=== PATIENT | female | born 1965 | race Two or more races ===

== ENCOUNTER 2020-07-22 10:15 | Outpatient (REF) | payer MEDICAID, SELFPAY ==
[2020-07-22 10:57] LABS: MANUAL DIFF FLAG NO
[2020-07-22 11:03] LABS: Basophils Absolute Auto 0.1 X10*3/uL (0.0-0.2); Basophils Percent Auto 1.1 % (0-2); Eosinophils Absolute Auto 1.3 X10*3/uL (0.0-0.4); Eosinophils Percent Auto 18.7 % (0-4); Hematocrit 40.5 % (37-47); Hemoglobin 13.6 g/dl (12.0-16.0); Imm Gran Abs Auto 0.01 X10*3/uL (0.00-0.03); Imm Gran Pct Auto 0.1 % (0.0-0.4); Lymphocytes Absolute Auto 2.5 X10*3/uL (1.2-4.9); Mean Corpuscular HGB Conc 33.6 g/dl (31.0-35.0); Mean Corpuscular Hemoglobin 30.8 pg (27.0-33.0); Mean Corpuscular Volume 91.8 fL (80-98); Mean Platelet Volume 11.6 fL (9.4-12.3); Monocytes Absolute Auto 0.6 X10*3/uL (0.1-1.2); Monocytes Percent Auto 8.7 % (2-11); Neutrophils Absolute Auto 2.6 X10*3/uL (2.0-8.3); Neutrophils Percent Auto 36.4 % (45-73); Platelet Count 103 X10*3/uL (160-400); Red Blood Count 4.41 X10*6/uL (4.20-5.50); Red Cell Distribution Width 13.2 % (11.0-16.0)
[2020-07-22 11:38] LABS: Alanine Aminotransferase 127 U/L (0-31); Albumin Level 3.7 g/dL (3.5-5.0); Alkaline Phosphatase 165 U/L (39-117); Aspartate Amino Transferase 121 U/L (5-31); Bilirubin Total 0.7 mg/dL (0.0-1.0); Blood Urea Nitrogen 13 mg/dL (9-16); Calcium 8.9 mg/dL (8.4-10.2); Estimated Glomerular Filt Rate 53; Glucose Random 161 mg/dL (60-115); Total Protein 7.5 g/dL (6.5-8.0)
[2020-07-22 11:46] LABS: Anion Gap 10 (12-20); Carbon Dioxide 27 mmol/L (22-29); Chloride 106 mmol/L (96-108); Potassium 4.1 mmol/L (3.3-5.1); Sodium 139 mmol/L (135-145)
[2020-07-23 13:16] LABS: Absolute CD3 Count 1519 cells/uL (840-3060); Absolute CD4 Count 1120 cells/uL (490-1740); Absolute CD8 Count 381 cells/uL (180-1170); Absolute Lymphocytes 2422 cells/uL (850-3900); CD4 CD8 Ratio 2.94 (0.86-5.00); Percent CD3 Cells 63 % (57-85); Percent CD4 Cells 46 % (30-61); Percent CD8 Cells 16 % (12-42)
[2020-07-24 15:21] LABS: HIV RNA PCR Qn Copies 235 copies/mL (NOT DETECTED); HIV RNA PCR Qn Log Copies 2.37 (NOT DETECTED)
== END 2020-07-22 10:16 | disposition home or self-care (01) ==
LOC: HO.LAB 10:15
PROVIDERS: PCP Student in an Organized Health Care Education/Training Program; Visit Provider Internal Medicine
DX: B20 Human immunodeficiency virus [HIV] disease (principal)
CPT/HCPCS: 36415; 80053; 85025; 86359; 86360; 87522; 87536

== ENCOUNTER → 2020-08-11 13:42 | Outpatient (BNVA) | payer MEDICAID, SELFPAY | PROVIDERS: PCP Student in an Organized Health Care Education/Training Program; Visit Provider Nurse Practitioner ==

== ENCOUNTER → 2020-09-07 15:23 | Outpatient (BNVA) | payer MEDICAID, SELFPAY | PROVIDERS: PCP Student in an Organized Health Care Education/Training Program; Visit Provider Nurse Practitioner | DX: R10.9 Unspecified abdominal pain (principal); K59.04 Chronic idiopathic constipation; K21.00 Gastro-esophageal reflux disease with esophagitis, without bleeding; B20 Human immunodeficiency virus [HIV] disease; B18.2 Chronic viral hepatitis C | CPT/HCPCS: 99212 ==

== ENCOUNTER 2020-10-04 10:57 | Outpatient (REF) | payer MEDICAID, SELFPAY ==
--- NOTE | ~2020-10-04 | MM_ITS ---
EXAMINATION: MM SCREENING DIGITAL BREAST TOMOSYNTHESIS, BILATERAL CLINICAL INFORMATION: Screening. Asymptomatic. The lifetime risk of breast cancer based on the Tyrer-Cuzick Model is 15%. COMPARISON: Mammography: 06/30/2019, 05/06/2018, 03/27/2016 TECHNIQUE: Digital breast tomosynthesis is performed in both the craniocaudal and mediolateral oblique views along with computer-aided detection (CAD). Synthesized 2D images are generated from the tomosynthesis. FINDINGS: There are scattered areas of fibroglandular density (ACR BI-RADS breast composition Category b). There are no significant masses, abnormal calcifications, or other abnormalities. There are some punctate densities overlying the skin right axilla on the MLO view suggesting deodorant artifact. The axilla and skin contours are otherwise unremarkable. MM/MM tomosynthesis screening BI IMPRESSION: No mammographic evidence of malignancy. ASSESSMENT: BI-RADS 2: Benign RECOMMENDATION: Routine annual mammography screening. This patient's information was entered into a reminder system with a target due date for their next mammogram.
== END 2020-10-04 10:58 | disposition home or self-care (01) ==
LOC: HO.MAMMO 10:57
PROVIDERS: PCP Student in an Organized Health Care Education/Training Program; Visit Provider Student in an Organized Health Care Education/Training Program
DX: Z12.31 Encounter for screening mammogram for malignant neoplasm of breast (principal)
CPT/HCPCS: 77063; 77067

== ENCOUNTER → 2020-10-26 10:22 | Outpatient (BNVA) | payer MEDICAID, SELFPAY | PROVIDERS: PCP Student in an Organized Health Care Education/Training Program; Visit Provider Nurse Practitioner ==

== ENCOUNTER 2020-11-30 07:26 | Day surgery (SDC) | payer MEDICAID, SELFPAY ==
--- NOTE | 2020-11-25 13:42 | HO.ANESPROP2 ---
Documented by User: Marissa Tovarney 11/25/20 13:47 HPI - Anesthesia Eval Consult details Narrative: 55yo F for Colonoscopy PMFSH Active Problems Active Problems: All Active Problems (Updated 10/26/20 @ 12:14 by ANRAV Lindsey) Family history of colon cancer (Acute) Abdominal pain (Acute) Chronic idiopathic constipation (Acute) HIV (human immunodeficiency virus infection) (Acute) Chronic hepatitis C (Acute) GERD with esophagitis (Acute) Past Medical History Medical History Chronic hepatitis C Chronic idiopathic constipation GERD with esophagitis HIV (human immunodeficiency virus infection) Family History Family History Father No problems noted. Mother No problems noted. Surgical History Surgical History History of esophagogastroduodenoscopy (EGD) Hx of appendectomy Hx of section Hx of cholecystectomy Hx of colonoscopy Social History Social History Alcohol intake: current Alcohol intake frequency: does not drink Patient Tobacco Use Status: Never used Tobacco Use of substances other than those prescribed or required for medical reasons: No Have you been hit, kicked, punched, or otherwise hurt by someone within the past year? If so, by whom?: No Are you DNR?: No Advance Directives: No Advance Directives Information Provided: Yes Meds Allergies Allergy/AdvReac Type Severity Reaction Status Date / Time ibuprofen [From Motrin] Allergy Intermediate RASH Verified 10/26/20 10:23 Sulfa (Sulfonamide Allergy Intermediate RASH Verified 10/26/20 10:23 Antibiotics) Motrin Allergy Unknown Rash Uncoded 08/11/20 13:43 Home Medications Medication Instructions Recorded Confirmed Last Taken Type albuterol sulfate 90 mcg/actuation 2 puff INHALATION Q4-6H PRN 08/11/20 09/07/20 Unknown History aerosol inhaler aspirin 81 mg tablet,delayed 81 mg PO DAILY 08/11/20 09/07/20 Unknown History release clonazepam 0.5 mg tablet 0.5 mg PO BEDTIME 08/11/20 09/07/20 Unknown History elviteg 150 mg-cob 150 mg-emtricit 1 tab PO DAILY 08/11/20 09/07/20 Unknown History 200 mg-tenofo alafenam 10 mg tablet lidocaine 5 % topical ointment 1 appl TOPICAL BID 08/11/20 09/07/20 Unknown History meclizine 25 mg tablet 25 mg PO TID 08/11/20 09/07/20 Unknown History zolpidem 10 mg tablet 10 mg PO BEDTIME PRN 08/11/20 09/07/20 Unknown History Exam Exam Date and Time: November 25, 2020 1342 Pertinent Lab Results Pertinent Lab Results: Laboratory Tests 07/22/20 07/22/20 10:30 10:30 WBC 7.0 Hgb 13.6 Hct 40.5 Plt Count 103 L Sodium 139 Potassium 4.1 Chloride 106 Carbon Dioxide 27 BUN 13 Creatinine 1.06 Assessment and Plan Assessment Anesthesia Assessment: Chart Reviewed Documented by User: Adrián Galicia MD 11/30/20 08:40 PMFSH Past Medical History Medical History Chronic hepatitis C Chronic idiopathic constipation GERD with esophagitis HIV (human immunodeficiency virus infection) Family History Family History Father No problems noted. Mother No problems noted. Surgical History Surgical History History of esophagogastroduodenoscopy (EGD) Hx of appendectomy Hx of section Hx of cholecystectomy Hx of colonoscopy Social History Social History Alcohol intake: current Alcohol intake frequency: does not drink Patient Tobacco Use Status: Never used Tobacco Use of substances other than those prescribed or required for medical reasons: No Have you been hit, kicked, punched, or otherwise hurt by someone within the past year? If so, by whom?: No Are you DNR?: No Advance Directives: No Advance Directives Information Provided: Yes Meds Allergies Allergy/AdvReac Type Severity Reaction Status Date / Time ibuprofen [From Motrin] Allergy Intermediate RASH Verified 10/26/20 10:23 Sulfa (Sulfonamide Allergy Intermediate RASH Verified 10/26/20 10:23 Antibiotics) Motrin Allergy Unknown Rash Uncoded 08/11/20 13:43 Home Medications Medication Instructions Recorded Confirmed Last Taken Type albuterol sulfate 90 mcg/actuation 2 puff INHALATION Q4-6H PRN 08/11/20 09/07/20 Unknown History aerosol inhaler aspirin 81 mg tablet,delayed 81 mg PO DAILY 08/11/20 09/07/20 Unknown History release clonazepam 0.5 mg tablet 0.5 mg PO BEDTIME 08/11/20 09/07/20 Unknown History elviteg 150 mg-cob 150 mg-emtricit 1 tab PO DAILY 08/11/20 09/07/20 Unknown History 200 mg-tenofo alafenam 10 mg tablet lidocaine 5 % topical ointment 1 appl TOPICAL BID 08/11/20 09/07/20 Unknown History meclizine 25 mg tablet 25 mg PO TID 08/11/20 09/07/20 Unknown History zolpidem 10 mg tablet 10 mg PO BEDTIME PRN 08/11/20 09/07/20 Unknown History Exam Airway Mallampati Class: III TM Dist: >3cm Neck ROM: Full Loose/Missing/Broken Teeth: Yes Assessment and Plan Assessment Anesthesia Assessment: Anesthesia Plan Discussed and Chart Reviewed Final Anesthetic Review NPO: Yes ASA Class: III Final Preanesthetic Review: No Changes in Pt Med Stat, Meds/Allgs Chart Reviewed, Consent Obtained/Reviewed and Anes Risks/Benef Reviewed Patient Risk: Low Procedure Risk: Low Anesthetic Plan Anesthetic Plan: MAC: Disposition: Standard PACU
[2020-11-30 07:54] VITALS: BP 129/69; PULSE 65; RESP 18; TEMP 36.8; O2SAT 97
[2020-11-30 08:02] VITALS: BMI 27.4
[2020-11-30] MEDS: Lactated Ringers 1,000 ML 100 ML IVCONT (08:16)
--- NOTE | 2020-11-30 09:14 | W.PM.OPN ---
Operative Note Operative Note Date of Service: 11/30/20 Narrative: Pre-op diagnosis: Colon cancer screening. Family history of colon cancer and polyps. Her sister had CRC at age 45 y/o and she survived. She also has a second sister with colon polyps removed. Post-op diagnosis: other (Colon polyps, diverticulosis) Procedure: COLONOSCOPY TILL CECUM WITH SNARE POLYPECTOMY Consent: Indications for the procedure and potential complications of bleeding, perforation, reaction to medications and missed diagnosis were discussed with the patient and informed consent was obtained. Instrument: Olympus PCF H 190 L variable stiffness pediatric colonoscope Monitoring: Vital signs and clinical assessment, intermittent blood pressure monitoring, continuous EKG monitoring, Pulse oximetry and Carbon Dioxide monitoring were done throughout the procedure. Colon withdrawl time was 20 minutes. Procedure: The patient was placed in the left lateral decubitis position and pre-procedure medications were administered. After a digital rectal examination of the ano-rectum, the video colonoscope was inserted into the rectum and advanced through the colon to the cecum. The colonoscope was slowly withdrawn in a retrograde panoramic fashion and the colon mucosa was carefully examined including a retroflexed view of the rectum. Findings and interventions are described below. Procedure Difficulty: Without difficulty Findings: Terminal Ileum: Not evaluated Cecum: A 2 cms sessile polyp removed with a hot snare. A 7-8 mm sessile polyp removed with a cold snare - some bleeding noted at polypectomy site treated with cautery using the snare tip. Ascending Colon: Normal Transverse Colon: A 10-12 mm sessile polyp removed with a hot snare Descending Colon: Normal Sigmoid Colon: Moderate diverticulosis Rectum: Normal Ano-rectum: Normal Colon preparation: Good after copious irrigation Impression and Post Procedure Diagnosis: Colonoscopy Findings: Three polyps removed Moderate diverticulosis seen in the sigmoid colon Plan: Await pathology results Patient has an appointment on 12/23/20 in the [facility] with Cristina Shen NP . Repeat Colonoscopy interval based on path results - in 2- 3 years if polyps are adenomatous and 5 years due to positive family history. Above findings were reviewed with the patient and colon polyps and diverticulosis handouts were given in the discharge area Surgeon: Eliza Malhotra MD Anesthesia: MAC Was an Salesperson Men'S Hats used for this Procedure?: Yes Salesperson Men'S Hats: Mirna Bright Estimated blood loss (mL): 0 Pathology: other (A- CECAL POLYPS B- TRANSVERSE COLON POLYP) Condition: stable Disposition: PACU
--- NOTE | 2020-11-30 09:14 | MHC.SHP ---
Pre-Procedural Eval Section A Date of Service: 11/30/20 The patient is an INPATIENT: No The History & Physical has been completed within 30 days and I have reviewed it.: No Section B Chief Complaint: Family hx of Colon Cancer Details of Present Illness: colon cancer screening Relevant Family History (Specify if Yes): Yes Relevant Social History: None Present Medications: see Short Stay Collaborative assessment Medical History: Significant History ( chronic hepatitis-C, HIV) History of Previous Operations: Relevant previous surgery/procedure and date(s) (History of esophagogastroduodenoscopy (EGD) Hx of appendectomy Hx of section Hx of cholecystectomy Hx of colonoscopy) Allergies: Allergies Allergy/AdvReac Type Severity Reaction Status Date / Time ibuprofen [From Motrin] Allergy Intermediate RASH Verified 10/26/20 10:23 Sulfa (Sulfonamide Allergy Intermediate RASH Verified 10/26/20 10:23 Antibiotics) Motrin Allergy Unknown Rash Uncoded 08/11/20 13:43 Review of Systems Sugical H&P ROS: Negative: Constitution, Cardiovascular, Respiratory and Gastrointestinal Exam Surgical H&P Exam: Normal: Heart, Normal: Lungs, Normal: Extremities and Normal: Abdomen Plan Diagnosis/Plan: Unchanged I have reviewed the history and physical and performed a pertinent physical examination on my patient. No changes have occurred unless specified.
[2020-11-30 10:01] VITALS: BP 90/54; PULSE 71; RESP 16; TEMP 36.1; O2SAT 94
[2020-11-30 10:15] VITALS: BP 100/60; PULSE 60; RESP 16; O2SAT 95
== END 2020-11-30 11:14 | disposition home or self-care (01) ==
PROVIDERS: Visit Provider Internal Medicine Gastroenterology
PROC: 0DJD8ZZ Inspection of Lower Intestinal Tract, Via Natural or Artificial Opening Endoscopic (ICD-10-PCS; CPT 45378; principal; 2020-11-30 09:20)
DX: Z12.11 Encounter for screening for malignant neoplasm of colon (principal); Z80.0 Family history of malignant neoplasm of digestive organs; Z83.71 Family history of colonic polyps; D12.3 Benign neoplasm of transverse colon; K51.40 Inflammatory polyps of colon without complications; K57.30 Diverticulosis of large intestine without perforation or abscess without bleeding; K59.04 Chronic idiopathic constipation; K21.00 Gastro-esophageal reflux disease with esophagitis, without bleeding; B18.2 Chronic viral hepatitis C; B20 Human immunodeficiency virus [HIV] disease; Z90.49 Acquired absence of other specified parts of digestive tract; Z79.899 Other long term (current) drug therapy; Z88.2 Allergy status to sulfonamides; Z88.8 Allergy status to other drugs, medicaments and biological substances
CPT/HCPCS: 45385; 88305; 88312; 88313

== ENCOUNTER → 2020-12-23 09:23 | Outpatient (BNVA) | payer MEDICAID, SELFPAY | PROVIDERS: PCP Student in an Organized Health Care Education/Training Program; Visit Provider Nurse Practitioner ==

== ENCOUNTER 2021-01-07 09:27 | Outpatient (REF) | payer MEDICAID, SELFPAY ==
[2021-01-07 10:28] LABS: MANUAL DIFF FLAG NO
[2021-01-07 10:34] LABS: Basophils Absolute Auto 0.1 X10*3/uL (0.0-0.2); Basophils Percent Auto 1.1 % (0-2); Hematocrit 40.2 % (37-47); Hemoglobin 13.7 g/dl (12.0-16.0); Imm Gran Abs Auto 0.01 X10*3/uL (0.00-0.03); Imm Gran Pct Auto 0.2 % (0.0-0.4); Lymphocytes Absolute Auto 2.4 X10*3/uL (1.2-4.9); Lymphocytes Percent Auto 38.3 % (20-40); Mean Corpuscular HGB Conc 34.1 g/dl (31.0-35.0); Mean Corpuscular Hemoglobin 31.4 pg (27.0-33.0); Mean Corpuscular Volume 92.2 fL (80-98); Mean Platelet Volume 11.9 fL (9.4-12.3); Monocytes Absolute Auto 0.5 X10*3/uL (0.1-1.2); Monocytes Percent Auto 8.2 % (2-11); Neutrophils Absolute Auto 2.2 X10*3/uL (2.0-8.3); Neutrophils Percent Auto 35.2 % (45-73); Platelet Count 91 X10*3/uL (160-400); Red Blood Count 4.36 X10*6/uL (4.20-5.50); White Blood Count 6.1 X10*3/uL (4.8-10.8)
[2021-01-07 10:51] LABS: Alanine Aminotransferase 125 U/L (0-31); Albumin Level 3.5 g/dL (3.5-5.0); Alkaline Phosphatase 166 U/L (39-117); Anion Gap 9 (12-20); Aspartate Amino Transferase 121 U/L (5-31); Blood Urea Nitrogen 10 mg/dL (9-16); Calcium 9.1 mg/dL (8.4-10.2); Carbon Dioxide 25 mmol/L (22-29); Chloride 109 mmol/L (96-108); Estimated Glomerular Filt Rate > 60; Glucose Random 129 mg/dL (60-115); Potassium 3.9 mmol/L (3.3-5.1); Sodium 139 mmol/L (135-145); Total Protein 7.4 g/dL (6.5-8.0)
[2021-01-08 15:42] LABS: HCV Log PCR 6.32 Log IU/mL (NOT DETECTED); HepC Viral Load 2080000 IU/mL (NOT DETECTED)
[2021-01-09 12:57] LABS: HIV RNA PCR Qn Copies 53 copies/mL (NOT DETECTED); HIV RNA PCR Qn Log Copies 1.72 (NOT DETECTED)
[2021-01-10 15:21] LABS: Absolute CD3 Count 1495 cells/uL (840-3060); Absolute CD4 Count 1092 cells/uL (490-1740); Absolute CD8 Count 384 cells/uL (180-1170); Absolute Lymphocytes 2427 cells/uL (850-3900); CD4 CD8 Ratio 2.84 (0.86-5.00); Percent CD3 Cells 62 % (57-85); Percent CD4 Cells 45 % (30-61); Percent CD8 Cells 16 % (12-42)
== END 2021-01-07 09:28 | disposition home or self-care (01) ==
LOC: HO.LAB 09:27
PROVIDERS: Absent Provider Student in an Organized Health Care Education/Training Program; PCP Student in an Organized Health Care Education/Training Program; Visit Provider Internal Medicine
DX: B20 Human immunodeficiency virus [HIV] disease (principal)
CPT/HCPCS: 36415; 80053; 85025; 86359; 86360; 87522; 87536

== ENCOUNTER 2021-08-15 11:37 | Outpatient (REF) | payer OTHER, MEDICAID, SELFPAY ==
--- NOTE | ~2021-08-15 | XR_ITS ---
EXAMINATION: XR SHOULDER, RIGHT CLINICAL INFORMATION: Pain COMPARISON: None TECHNIQUE: AP external rotation, Grashey, scapular Y, and axillary views of the right shoulder. FINDINGS: Bone alignment is normal. No fracture or dislocation is seen. The joint spaces are normal. There may be a small undersurface acromial osteophyte. Soft tissues are otherwise normal. XR/XR shoulder RT min 2V IMPRESSION: Small undersurface acromial osteophyte otherwise unremarkable exam.
--- NOTE | ~2021-08-15 | XR_ITS ---
EXAMINATION: XR CERVICAL SPINE CLINICAL INFORMATION: Pain COMPARISON: None TECHNIQUE: 6 views of the cervical spine, inclusive of bilateral oblique views, were obtained. FINDINGS: Bone alignment is normal. No fracture or dislocation is seen. There is degenerative spondylosis and degenerative disc disease at C5-C6. There may be mild degenerative spondylosis at C2-C3 as well. Neural foramen are patent. There is soft tissue calcification in the posterior neck posterior to the C5 spinous process likely related to old trauma. Prevertebral soft tissues are normal. XR/XR cervical spine min 6V IMPRESSION: Mild degenerative spondylosis and degenerative disc disease at C5-C6.
== END 2021-08-15 11:38 | disposition home or self-care (01) ==
LOC: HO.XRAY 11:37
PROVIDERS: Absent Provider Student in an Organized Health Care Education/Training Program; PCP Student in an Organized Health Care Education/Training Program; Visit Provider Pediatrics
DX: M25.511 Pain in right shoulder (principal); M54.2 Cervicalgia
CPT/HCPCS: 72052; 73030

== ENCOUNTER 2021-11-10 12:20 | Outpatient (REF) | payer MEDICAID, SELFPAY ==
[2021-11-10 12:55] LABS: MANUAL DIFF FLAG NO
[2021-11-10 13:43] LABS: Basophils Absolute Auto 0.1 X10*3/uL (0.0-0.2); Basophils Percent Auto 1.5 % (0-2); Eosinophils Absolute Auto 0.7 X10*3/uL (0.0-0.4); Eosinophils Percent Auto 13.1 % (0-4); Hematocrit 41.3 % (37.0-47.0); Hemoglobin 14.1 g/dl (12.0-16.0); Imm Gran Abs Auto 0.01 X10*3/uL (0.00-0.03); Imm Gran Pct Auto 0.2 % (0.0-0.4); Lymphocytes Absolute Auto 1.9 X10*3/uL (1.2-4.9); Lymphocytes Percent Auto 37.2 % (20-40); Mean Corpuscular HGB Conc 34.1 g/dl (31.0-35.0); Mean Corpuscular Hemoglobin 32.1 pg (27.0-33.0); Mean Corpuscular Volume 94.1 fL (80.0-98.0); Mean Platelet Volume 12.1 fL (9.4-12.3); Monocytes Absolute Auto 0.4 X10*3/uL (0.1-1.2); Monocytes Percent Auto 8.5 % (2-11); Neutrophils Absolute Auto 2.1 x10*3/uL (2.0-8.3); Neutrophils Percent Auto 39.5 % (45-73); Platelet Count 73 X10*3/uL (160-400); Red Blood Count 4.39 X10*6/uL (4.20-5.50); Red Cell Distribution Width 13.4 % (11.0-16.0); White Blood Count 5.2 X10*3/uL (4.8-10.8)
[2021-11-10 14:00] LABS: Alanine Aminotransferase 85 U/L (0-31); Albumin Level 3.4 g/dL (3.5-5.0); Alkaline Phosphatase 238 U/L (39-117); Anion Gap 10 (12-20); Aspartate Amino Transferase 104 U/L (5-31); Bilirubin Total 2.3 mg/dL (0.0-1.0); Blood Urea Nitrogen 10 mg/dL (9-16); Calcium 9.2 mg/dL (8.4-10.2); Carbon Dioxide 25 mmol/L (22-29); Chloride 108 mmol/L (96-108); Cholesterol 192 mg/dL; Estimated Glomerular Filt Rate 49; Glucose Random 130 mg/dL (60-115); HDL Cholesterol 38 mg/dL; LDL Cholesterol Calculated 95 mg/dl; Potassium 4.3 mmol/L (3.3-5.1); Sodium 139 mmol/L (135-145); Total Protein 7.6 g/dL (6.5-8.0); Triglycerides 297 mg/dL
[2021-11-11 07:29] LABS: Syphilis Screen Nonreactive (Nonreactive)
[2021-11-12 17:51] LABS: TS Negative Control Passed; TS Panel A 0; TS Panel B 0; TS Positive Control Passed; TSpotTB Negative (Negative)
[2021-11-14 13:37] LABS: Absolute CD3 Count 1244 cells/uL (840-3060); Absolute CD4 Count 933 cells/uL (490-1740); Absolute CD8 Count 334 cells/uL (180-1170); Absolute Lymphocytes 2079 cells/uL (850-3900); CD4 CD8 Ratio 2.79 (0.86-5.00); Percent CD3 Cells 60 % (57-85); Percent CD4 Cells 45 % (30-61); Percent CD8 Cells 16 % (12-42)
[2021-11-15 13:21] LABS: HIV RNA PCR Qn Copies NOT DETECTED copies/mL (NOT DETECTED); HIV RNA PCR Qn Log Copies NOT DETECTED (NOT DETECTED)
== END 2021-11-10 12:21 | disposition home or self-care (01) ==
LOC: HO.LAB 12:20
PROVIDERS: PCP Student in an Organized Health Care Education/Training Program; Visit Provider Internal Medicine
DX: B20 Human immunodeficiency virus [HIV] disease (principal); K21.00 Gastro-esophageal reflux disease with esophagitis, without bleeding; K59.04 Chronic idiopathic constipation
CPT/HCPCS: 36415; 80053; 80061; 85025; 86359; 86360; 86481; 86780; 87536; 99212

== ENCOUNTER → 2022-07-19 12:41 | Outpatient (BNVA) | payer MEDICAID, SELFPAY | PROVIDERS: PCP Student in an Organized Health Care Education/Training Program; Visit Provider Nurse Practitioner | DX: B18.2 Chronic viral hepatitis C (principal); K59.04 Chronic idiopathic constipation; K21.00 Gastro-esophageal reflux disease with esophagitis, without bleeding; B20 Human immunodeficiency virus [HIV] disease; Z90.49 Acquired absence of other specified parts of digestive tract | CPT/HCPCS: 99212 ==

== ENCOUNTER 2023-01-23 10:34 | Outpatient (REF) | payer MEDICAID, SELFPAY ==
[2023-01-23 16:09] LABS: Alanine Aminotransferase 43 U/L (0-31); Albumin Level 3.3 g/dL (3.5-5.0); Alkaline Phosphatase 178 U/L (39-117); Anion Gap 10 (12-20); Aspartate Amino Transferase 52 U/L (5-31); Bilirubin Direct 0.9 mg/dL (0.0-0.5); Bilirubin Total 2.4 mg/dL (0.0-1.0); Blood Urea Nitrogen 12 mg/dL (9-16); Calcium 9.9 mg/dL (8.4-10.2); Carbon Dioxide 28 mmol/L (22-29); Chloride 107 mmol/L (96-108); Cholesterol 187 mg/dL (<200); Estimated Glomerular Filt Rate 51; Glucose Fasting 73 mg/dL (60-99); HDL Cholesterol 60 mg/dL (>40); LDL Cholesterol Calculated 95 mg/dL (<100); Potassium 3.9 mmol/L (3.3-5.1); Sodium 141 mmol/L (135-145); Total Protein 7.6 g/dL (6.5-8.0); Triglycerides 164 mg/dL (<150)
[2023-01-23 16:23] LABS: Thyroid Stimulating Hormone 1.43 uIU/mL (0.32-4.0)
[2023-01-24 15:59] LABS: HCV Log PCR 5.58 Log IU/mL (NOT DETECTED); HepC Viral Load 381000 IU/mL (NOT DETECTED)
[2023-01-25 00:53] LABS: Lyme Abs Screen <0.90 index
[2023-01-26 15:53] LABS: HIV RNA PCR Qn Copies <20 Copies/mL; HIV RNA PCR Qn Log Copies <1.30 Log cps/mL
== END 2023-01-23 10:35 | disposition home or self-care (01) ==
LOC: HO.CHCLDS 10:34
PROVIDERS: Visit Provider Student in an Organized Health Care Education/Training Program
DX: Z13.89 Encounter for screening for other disorder (principal)
CPT/HCPCS: 36415; 80053; 80061; 80076; 82248; 84443; 86617; 86618; 87522; 87536; 87900

== ENCOUNTER 2023-01-24 11:27 | Outpatient (AMB) | payer MEDICAID, SELFPAY ==
--- NOTE | 2023-01-24 11:33 | A.OFFVIS_ITS ---
Intake Vital Signs 01/24/23 11:34 Height 5 ft 2 in Weight 155 lb 3.287 oz BMI 28.4 BP 146/73 H Blood Pressure Location Lt brachial Position Sitting Pulse 69 Intake Visit Reasons: Follow up 6 months Intake Note: Jamey presents in office today for 6 months follow up. CC: Patient reports doing well and denies any new GI problems or concerns today. 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 Accompanied by: Self / Same As Patient Allergies ibuprofen [From Motrin] Allergy (Intermediate, Verified 01/24/23 11:49) RASH Sulfa (Sulfonamide Antibiotics) Allergy (Intermediate, Verified 01/24/23 11:49) RASH Motrin Allergy (Unknown, Uncoded 08/11/20 13:43) Rash HPI Follow up 6 months HPI Details Assessment & Plan (1) GERD with esophagitis: ?Comment: 2019 EGD showed small sliding HH, foresh ortened esophagus, alot of pharyngeal tissue ?Code(s): K21.00 - Gastro-esophageal reflux disease with esophagitis, without bleeding ?Plan: [place] Yariel Gautam She continues to do well on her Dexilant with good control of her GERD and her bisacodyl controlled constipation.? She remains satisfied with her GI regimen and has no new medical problems to report at this time.? Return office visit in 6 months. (2) Chronic idiopathic constipation: ?Code(s): K59.04 - Chronic idiopathic constipation (3) Chronic hepatitis C: ?Code(s): B18.2 - Chronic viral hepatitis C ? ? ? Medications: New bisacodyl (Dulcola x (bisacodyl)) 10 mg (2 x 5 mg) P O BEDTIME 30 days 60 tabs 6RF ? ? Refilled dexlansoprazole (D exilant) 60 mg? PO DAILY 30 caps 6RF ? ? TODAY'S VISIT [place] She is doing well! She continues to do well on her Dexilant with good control of her GERD and her bisacodyl controlled constipation.? She remains satisfied with her GI regimen and has no new medical problems to report at this time.? Next appt discuss repeat scope. ROV 6 mos. PFS Medical History Chronic hepatitis C Chronic idiopathic constipation GERD with esophagitis HIV (human immunodeficiency virus infection) Surgical History History of esophagogastroduodenoscopy (EGD) Hx of appendectomy Hx of section Hx of cholecystectomy Hx of colonoscopy Family History Father No problems noted. Mother No problems noted. Social History Alcohol intake: current Alcohol intake frequency: does not drink Patient Tobacco Use Status: Never used Tobacco Review of Systems Const Denies fatigue, Denies fever(s), Denies night sweats, Denies poor appetite and Denies weight loss Eyes Details: glasses Reports requires corrective lenses ENT Reports Normal hearing present, Denies dental pain, Denies dysphagia, Denies hearing loss, Denies mouth pain, Denies odynophagia, Denies throat swelling, Denies tongue swelling and Reports other (Dentition adequate) Card Reports no additional complaints Resp Reports no additional complaints GI Denies abdominal pain, Denies melena, Denies bloating, Denies hematochezia, Reports constipation, Denies GI cramping, Denies dysphagia, Denies excessive flatus, Denies early satiety, Reports heartburn, Denies diarrhea, Denies nausea, Denies odynophagia, Denies vomiting and Denies hematemesis Skin/Breast Denies pruritus, Denies lesions, Denies rash and Denies jaundice Neuro Reports Normal hearing present and Denies Abnormal speech present Endo Denies fatigue Aller/Immun Denies throat swelling and Denies tongue swelling Physical Exam Vital Signs: Last Vital Signs Pulse 69 01/24/23 11:34 BP 146/73 H 01/24/23 11:34 BMI result Body Mass Index 28.4 Const General: cooperative, no acute distress, well developed and well groomed Nutritional Appearance: average body habitus and well nourished Orientation/consciousness: oriented to person, oriented to place and oriented to time Limitations: language barrier HEENT Head: Yes normocephalic and Yes atraumatic Eyes General: appearance normal, both eyes and all related structures Pupils: Equal, round and reactive pupils present Neck Neck: Yes normal visual inspection and Yes no lymphadenopathy Thyroid: Thyroid normal Resp Effort & Inspection: normal respiratory effort and able to speak in complete sentences Auscultation: clear to auscultation bilaterally Cardio Rate: regular rate Rhythm: regular rhythm Heart sounds: Normal, physiologic split S2 sound present Peripheral pulses: radial pulses present and posterior tibial pulses present GI Inspection: No distended and No Abdominal panniculus present Palpation (GI): Soft to palpation, nontender, no guarding, not rigid and No hepatosplenomegaly present Percussion: Yes normal to percussion Auscultation: normal bowel sounds Rectal Exam - Female: deferred Skin General skin exam: no rashes or lesions noted, turgor normal, skin not dry, no jaundice, No spider nevi and no striae Rashes: no rashes Nails: normal Neuro General: oriented to person, oriented to place and oriented to time Cranial nerves: Yes Equal, round and reactive pupils present and Yes Normal hearing present Speech: No Abnormal speech present Extrem General: Yes normal to inspection, No clubbing, No cyanosis and No edema Psych Appearance: grossly normal and well kempt Mental Status: mental status grossly normal Speech and movement: Normal speech and movement present Affect: normal affect Attitude: cooperative Thought process: Normal thought process present and not confabulating Thought content: Normal thought content present Insight: Limited insight present (Psych) Judgement: Limited judgement present (Psych) Assessment & Plan Assessment & Plan (1) GERD with esophagitis: Comment: 2019 EGD showed small sliding HH, foreshortened esophagus, alot of pharyngeal tissue Code(s): K21.00 - Gastro-esophageal reflux disease with esophagitis, without bleeding Plan: [place]ien #Gerardo She is doing well! She continues to do well on her Dexilant with good control of her GERD and her bisacodyl controlled constipation.? She remains satisfied with her GI regimen and has no new medical problems to report at this time.? Next appt discuss repeat scope. ROV 6 mos. (2) Chronic idiopathic constipation: Code(s): K59.04 - Chronic idiopathic constipation (3) Family history of colon cancer: Comment: sister age 45 survived a 2nd sister has a history of polyps as well, 2020 scope repeat 3 years Code(s): Z80.0 - Family history of malignant neoplasm of digestive organs Medications: Refilled dexlansoprazole (Dexilant) 60 mg PO DAILY 30 caps 6RF bisacodyl 10 mg (2 x 5 mg) PO BEDTIME 180 tabs 2RF Coding Level of Care Code Est Pt Level 3 (99475) Diagnoses GERD with esophagitis K21.00 Chronic idiopathic constipation K59.04 Family history of colon cancer Z80.0
[2023-01-24 11:34] VITALS: BP 146/73; PULSE 69; BMI 28.4
== END 2023-01-24 12:21 | disposition home or self-care (01) ==
PROVIDERS: Visit Provider Nurse Practitioner
DX: K21.00 Gastro-esophageal reflux disease with esophagitis, without bleeding (principal); K59.04 Chronic idiopathic constipation; Z80.0 Family history of malignant neoplasm of digestive organs
CPT/HCPCS: 99213

== ENCOUNTER → 2023-01-24 11:27 | Outpatient (BNVA) | payer MEDICAID, SELFPAY | PROVIDERS: Visit Provider Nurse Practitioner | DX: K21.00 Gastro-esophageal reflux disease with esophagitis, without bleeding (principal); K59.04 Chronic idiopathic constipation; Z80.0 Family history of malignant neoplasm of digestive organs | CPT/HCPCS: 99212 ==

== ENCOUNTER 2023-03-16 14:49 | Outpatient (REF) | payer MEDICAID, SELFPAY ==
[2023-03-16 18:21] LABS: Influenza A PCR NEGATIVE (Negative); Influenza B PCR NEGATIVE (Negative); Resp Syncy Virus RNA Qual PCR NEGATIVE (Negative); SARS COV2 PCR INHOUSE NEGATIVE (Negative)
== END 2023-03-16 14:50 | disposition home or self-care (01) ==
LOC: HO.CHCLNP 14:49
PROVIDERS: Visit Provider Internal Medicine
DX: Z11.52 Encounter for screening for COVID-19 (principal); R05.1 Acute cough; J06.9 Acute upper respiratory infection, unspecified
CPT/HCPCS: 0241U

== ENCOUNTER 2023-08-07 09:19 | Outpatient (REF) | payer MEDICAID, SELFPAY ==
[2023-08-07 14:13] LABS: MANUAL DIFF FLAG NO
[2023-08-07 14:16] LABS: Basophils Absolute Auto 0.1 X10*3/uL (0.0-0.2); Basophils Percent Auto 0.9 % (0-2); Eosinophils Absolute Auto 0.5 X10*3/uL (0.0-0.4); Eosinophils Percent Auto 8.5 % (0-4); Hemoglobin 13.2 g/dl (12.0-16.0); Imm Gran Abs Auto 0.02 X10*3/uL (0.00-0.03); Imm Gran Pct Auto 0.4 % (0.0-0.4); Lymphocytes Percent Auto 36.4 % (20-40); Mean Corpuscular HGB Conc 33.8 g/dl (31.0-35.0); Mean Corpuscular Hemoglobin 31.9 pg (27.0-33.0); Mean Corpuscular Volume 94.2 fL (80.0-98.0); Mean Platelet Volume 11.5 fL (9.4-12.3); Monocytes Absolute Auto 0.6 X10*3/uL (0.1-1.2); Monocytes Percent Auto 10.8 % (2-11); Neutrophils Absolute Auto 2.3 x10*3/uL (2.0-8.3); Red Blood Count 4.14 X10*6/uL (4.20-5.50); Red Cell Distribution Width 13.3 % (11.0-16.0); White Blood Count 5.4 X10*3/uL (4.8-10.8)
[2023-08-07 14:20] LABS: Platelet Count 71 X10*3/uL (160-400)
[2023-08-07 14:52] LABS: Alanine Aminotransferase 36 U/L (0-31); Alkaline Phosphatase 172 U/L (39-117); Anion Gap 10 (12-20); Aspartate Amino Transferase 41 U/L (5-31); Bilirubin Total 2.5 mg/dL (0.0-1.0); Blood Urea Nitrogen 9 mg/dL (9-16); Calcium 8.8 mg/dL (8.4-10.2); Carbon Dioxide 25 mmol/L (22-29); Chloride 109 mmol/L (96-108); Cholesterol 135 mg/dL (<200); Estimated Glomerular Filt Rate > 60; Glucose Random 96 mg/dL (60-115); HDL Cholesterol 45 mg/dL (>40); LDL Cholesterol Calculated 55 mg/dL (<100); Sodium 140 mmol/L (135-145); Total Protein 7.1 g/dL (6.5-8.0); Triglycerides 177 mg/dL (<150)
[2023-08-07 14:58] LABS: Reflex LDLD? No
[2023-08-08 14:34] LABS: HIV RNA PCR Qn Copies NOT DETECTED copies/mL (NOT DETECTED); HIV RNA PCR Qn Log Copies NOT DETECTED (NOT DETECTED)
[2023-08-09 11:04] LABS: Absolute CD3 Count 1334 cells/uL (840-3060); Absolute CD4 Count 998 cells/uL (490-1740); Absolute CD8 Count 340 cells/uL (180-1170); Absolute Lymphocytes 2065 cells/uL (850-3900); CD4 CD8 Ratio 2.94 (0.86-5.00); Percent CD3 Cells 65 % (57-85); Percent CD4 Cells 48 % (30-61); Percent CD8 Cells 16 % (12-42)
== END 2023-08-07 09:20 | disposition home or self-care (01) ==
LOC: HO.CHCLDS 09:19
PROVIDERS: Visit Provider Internal Medicine
DX: B20 Human immunodeficiency virus [HIV] disease (principal)
CPT/HCPCS: 36415; 80053; 80061; 85025; 86359; 86360; 87536

== ENCOUNTER 2023-09-13 09:53 | Outpatient (AMB) | payer MEDICAID, SELFPAY ==
[2023-09-13 09:57] VITALS: BP 131/76; PULSE 78; BMI 28.3
--- NOTE | 2023-09-13 09:57 | A.OFFVIS_ITS ---
Intake Vital Signs 09/13/23 09:57 Height 5 ft 2 in Weight 154 lb 12.232 oz BMI 28.3 BP 131/76 Blood Pressure Location Lt brachial Position Sitting Pulse 78 Intake Visit Reasons: 6 months follow up Intake Note: Patient last seen December 2022. Here to f/u acid reflux, constipation much improved. Taking dexilant Patient c/o: no changes with med hx, no new concerns. 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 She continues to do well on her Dexilant with good control of her GERD and her bisacodyl controlled constipation.? She remains satisfied with her GI regimen and has no new medical problems to report at this time.? Next appt discuss repeat scope. ROV 6 mos. (2) Chronic idiopathic constipation: Code(s): K59.04 - Chronic idiopathic constipation (3) Family history of colon cancer: Comment: sister age 45 survived a 2nd sister has a history of polyps as well, 2020 scope repeat 3 years Code(s): Z80.0 - Family history of malignant neoplasm of digestive organs Medications: Refilled dexlansoprazole (D exilant) 60 mg PO DAILY 30 caps 6RF bisacodyl 10 mg (2 x 5 mg) P O BEDTIME 180 tabs 2RF Laboratory Tests 08/07/23 09:21 WBC 5.4 RBC 4.14 L Hgb 13.2 Hct 39.0 Plt Count 71 L Estimated GFR > 60 Total Bilirubin 2.5 H AST 41 H ALT 36 H Alkaline Phosphata se 172 H TODAY'S VISIT [place] #[id number] [place] She is due for a repeat colonoscopy screening. She says she was very ill with a flu. She attributes this for her low wali telets. She also was on a 14 day dose of prednsone. 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 I ask her what her treating provider says and they told her that her blood work was all okay so I am not sure they have the most recent values. I did spend time going over fall prevention and the risks of having low platelets with her and that if she has any doubt she should present to the ER with any injury-especially any head injury. I have cautioned her to avoid risky activities as well. I explained to her the risk of severe bleeding because her body's abilities to clot her blood are disrupted. She was ill from 07/25 through some time mid July. Her platelets usually run around 150,000, but were down to 71,000 in July. This could cause complications if she needs a polypectomy. Ordinarily we do not worry about spontaneous bleeding from a nontraumatic nature until the platelets fall below 50,000 but she is uncomfortably close. She continues to do well on her GI medications. ROV 6 weeks to recheck CBC. [facility], LAT[facility] Medical History (Updated 09/13/23 @ 11:55 by ARNAV Lindsey) HIV (human immunodeficiency virus infection) Chronic idiopathic constipation Chronic hepatitis C GERD with esophagitis Surgical History Hx of section Hx of colonoscopy History of esophagogastroduodenoscopy (EGD) Hx of cholecystectomy Hx of appendectomy Family History Father No problems noted. Mother No problems noted. Social History Alcohol intake: current Alcohol intake frequency: does not drink Patient Tobacco Use Status: Never used Tobacco Review of Systems Const Denies fatigue, Denies fever(s), Denies night sweats, Denies poor appetite and Denies weight loss Eyes Details: glasses Reports requires corrective lenses ENT Reports Normal hearing present, Denies dental pain, Denies dysphagia, Denies hearing loss, Denies mouth pain, Denies odynophagia, Denies throat swelling, Denies tongue swelling and Reports other (Dentition adequate) Card Reports no additional complaints Resp Reports cough GI Details: Denies abdominal pain, Denies melena, Denies bloating, Denies hematochezia, Reports constipation, Denies GI cramping, Denies dysphagia, Denies excessive flatus, Denies early satiety, Reports heartburn, Denies diarrhea, Denies nausea, Denies odynophagia, Denies vomiting and Denies hematemesis Skin/Breast Denies pruritus, Denies lesions, Denies rash and Denies jaundice Neuro Reports Normal hearing present and Denies Abnormal speech present Endo Denies fatigue Aller/Immun Denies throat swelling and Denies tongue swelling Physical Exam Vital Signs: Last Vital Signs Pulse 78 09/13/23 09:57 BP 131/76 09/13/23 09:57 BMI result Body Mass Index 28.3 Const General: cooperative, no acute distress, well developed and well groomed Nutritional Appearance: average body habitus and well nourished Orientation/consciousness: oriented to person, oriented to place and oriented to time Limitations: language barrier HEENT Head: Yes normocephalic and Yes atraumatic Eyes General: appearance normal, both eyes and all related structures Pupils: Equal, round and reactive pupils present Neck Neck: Yes normal visual inspection and Yes no lymphadenopathy Thyroid: Thyroid normal Resp Effort & Inspection: normal respiratory effort and able to speak in complete sentences Auscultation: clear to auscultation bilaterally Cardio Rate: regular rate Rhythm: regular rhythm Heart sounds: Normal, physiologic split S2 sound present Peripheral pulses: radial pulses present and posterior tibial pulses present GI Inspection: No distended and No Abdominal panniculus present Palpation (GI): Soft to palpation, nontender, no guarding, not rigid and No hepatosplenomegaly present Percussion: Yes normal to percussion Auscultation: normal bowel sounds Rectal Exam - Female: deferred Skin General skin exam: no rashes or lesions noted, turgor normal, skin not dry, no jaundice, No spider nevi and no striae Rashes: no rashes Nails: normal Neuro General: oriented to person, oriented to place and oriented to time Cranial nerves: Yes Equal, round and reactive pupils present and Yes Normal hearing present Speech: No Abnormal speech present Extrem General: Yes normal to inspection, No clubbing, No cyanosis and No edema Psych Appearance: grossly normal and well kempt Mental Status: mental status grossly normal Speech and movement: Normal speech and movement present Affect: normal affect Attitude: cooperative Thought process: Normal thought process present and not confabulating Thought content: Normal thought content present Insight: Limited insight present (Psych) Judgement: Limited judgement present (Psych) Results Reviewed Results Reviewed: Laboratory Tests 08/07/23 09:21 WBC 5.4 RBC 4.14 L Hgb 13.2 Hct 39.0 Plt Count 71 L Estimated GFR > 60 Total Bilirubin 2.5 H AST 41 H ALT 36 H Alkaline Phosphatase 172 H Laboratory Tests 10/28/18 07/08/19 11/10/19 09:40 12:11 10:53 Plt Count 150 L 145 L 126 L 07/22/20 01/07/21 11/10/21 10:30 09:40 12:51 Plt Count 103 L 91 L 73 L 08/07/23 09:21 Plt Count 71 L Assessment & Plan Assessment & Plan (1) GERD with esophagitis: Comment: 2018 EGD showed small sliding HH, foreshortened esophagus, alot of pharyngeal tissue Code(s): K21.00 - Gastro-esophageal reflux disease with esophagitis, without bleeding (2) Chronic idiopathic constipation: Code(s): K59.04 - Chronic idiopathic constipation (3) Chronic hepatitis C: Code(s): B18.2 - Chronic viral hepatitis C (4) Family history of colon cancer: Comment: sister age 45 survived a 2nd sister has a history of polyps as well, 2020 scope repeat 3 years Code(s): Z80.0 - Family history of malignant neoplasm of digestive organs (5) Thrombocytopenia: Code(s): D69.6 - Thrombocytopenia, unspecified (6) HIV (human immunodeficiency virus infection): Comment: on antiretroviral therapy--Last CD4 count was 973-(04/06/15) Code(s): B20 - Human immunodeficiency virus [HIV] disease (7) Pre-op examination: Code(s): Z01.818 - Encounter for other preprocedural examination Plan [place] #[id number] [place] She is due for a repeat colonoscopy screening. She says she was very ill with a flu. She attributes this for her low platelets. She also was on a 14 day dose of prednsone. 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 I ask her what her treating provider says and they told her that her blood work was all okay so I am not sure they have the most recent values. I did spend time going over fall prevention and the risks of having low platelets with her and that if she has any doubt she should present to the ER with any injury-especially any head injury. I have cautioned her to avoid risky activities as well. I explained to her the risk of severe bleeding because her body's abilities to clot her blood are disrupted. She was ill from 07/25 through some time mid July. Her platelets usually run around 150,000, but were down to 71,000 in July. This could cause complications if she needs a polypectomy. Ordinarily we do not worry about spontaneous bleeding from a nontraumatic nature until the platelets fall below 50,000 but she is uncomfortably close. She continues to do well on her GI medications. ROV 6 weeks to recheck CBC. Orders: Orders Colonoscopy - GI Use Only Today B18.2 - Chronic viral hepatitis C, B20 - Human immunodeficiency virus [HIV] disease, D69.6 - Thrombocytopenia, unspecified, Z80.0 - Family history of malignant neoplasm of digestive organs Medications: New peg 3350-electrolytes 236-22.74-6.74 -5.86 gram (Golytely) until fecal effluent is clear; do not exceed a total volume of 2,000 mL 240 mL PO Q10M 4,000 mL 0RF 1 day Z12.11 - Encounter for screening for malignant neoplasm of colon bisacodyl (Dulcolax (bisacodyl)) 10 mg (2 x 5 mg) PO BEDTIME 60 tabs 6RF 30 days K59.04 - Chronic idiopathic constipation Refilled dexlansoprazole (Dexilant) 60 mg PO DAILY 90 caps 3RF 90 days Discontinued bisacodyl Discontinued Reason: Doctor's Order 10 mg (2 x 5 mg) PO BEDTIME 180 tabs 2RF Coding Level of Care Code Est Pt Level 4 (86683) Diagnoses GERD with esophagitis K21.00 Chronic idiopathic constipation K59.04 Chronic hepatitis C B18.2 Family history of colon cancer Z80.0 Thrombocytopenia D69.6 HIV (human immunodeficiency virus infection) B20 Pre-op examination Z01.818
== END 2023-09-13 10:29 | disposition home or self-care (01) ==
PROVIDERS: PCP Student in an Organized Health Care Education/Training Program; Visit Provider Nurse Practitioner
DX: K21.00 Gastro-esophageal reflux disease with esophagitis, without bleeding (principal); K59.04 Chronic idiopathic constipation; B18.2 Chronic viral hepatitis C; Z80.0 Family history of malignant neoplasm of digestive organs; D69.6 Thrombocytopenia, unspecified; B20 Human immunodeficiency virus [HIV] disease; Z01.818 Encounter for other preprocedural examination
CPT/HCPCS: 99214

== ENCOUNTER → 2023-09-13 09:53 | Outpatient (BNVA) | payer MEDICAID, SELFPAY | PROVIDERS: PCP Student in an Organized Health Care Education/Training Program; Visit Provider Nurse Practitioner | DX: Z01.818 Encounter for other preprocedural examination (principal); K21.00 Gastro-esophageal reflux disease with esophagitis, without bleeding; K59.04 Chronic idiopathic constipation; B18.2 Chronic viral hepatitis C; B20 Human immunodeficiency virus [HIV] disease; D69.6 Thrombocytopenia, unspecified; Z80.0 Family history of malignant neoplasm of digestive organs | CPT/HCPCS: 99212 ==

== ENCOUNTER 2023-10-25 10:18 | Outpatient (AMB) | payer MEDICAID, SELFPAY ==
--- NOTE | 2023-10-25 10:32 | MHC.OFFVIS ---
Vital Signs 10/25/23 10:35 Height 5 ft 2 in Weight 156 lb 15.506 oz BMI 28.7 BP 124/60 Blood Pressure Location Lt brachial Position Sitting Pulse 65 Intake Visit Reasons: 6 week follow up Intake Note: Isa presents to in office follow up of CIC. CC: Patient states she was sick recently with cough and flu like symptoms. Denies having any GI symptoms today. 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 Accompanied by: Self / Same As Patient Allergies ibuprofen [From Motrin] Allergy (Intermediate, Verified 10/25/23 10:42) RASH Sulfa (Sulfonamide Antibiotics) Allergy (Intermediate, Verified 10/25/23 10:42) RASH Motrin Allergy (Unknown, Uncoded 09/13/23 10:03) Rash HPI HPI 6 week follow up: Details: Assessment & Plan (1) GERD with esophagitis: Comment: 2018 EGD showed small sliding HH, foreshortened esophagus, alot of pharyngeal tissue Code(s): K21.00 - Gastro-esophageal reflux disease with esophagitis, without bleeding (2) Chronic idiopathic constipation: Code(s): K59.04 - Chronic idiopathic constipation (3) Chronic hepatitis C: Code(s): B18.2 - Chronic viral hepatitis C (4) Family history of colon cancer: Comment: sister age 45 survived a 2nd sister has a history of polyps as well, 2020 scope repeat 3 years Code(s): Z80.0 - Family history of malignant neoplasm of digestive organs (5) Thrombocytopenia: Code(s): D69.6 - Thrombocytopenia, unspecified (6) HIV (human immunodeficiency virus infection): Comment: on antiretroviral therapy--Last CD4 count was 973-(04/06/15) Code(s): B20 - Human immunodeficiency virus [HIV] disease (7) Pre-op examination: Code(s): Z01.818 - Encounter for other preprocedural examination Plan [place] #[id number] [place] She is due for a repeat colonoscopy screening. She says she was very ill with a flu. She attributes this for her low platelets. She also was on a 14 day dose of prednsone. 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 I ask her what her treating provider says and they told her that her blood work was all okay so I am not sure they have the most recent values. I did spend time going over fall prevention and the risks of having low platelets with her and that if she has any doubt she should present to the ER with any injury-especially any head injury. I have cautioned her to avoid risky activities as well. I explained to her the risk of severe bleeding because her body's abilities to clot her blood are disrupted. She was ill from 07/25 through some time mid July. Her platelets usually run around 150,000, but were down to 71,000 in July. This could cause complications if she needs a polypectomy. Ordinarily we do not worry about spontaneous bleeding from a nontraumatic nature until the platelets fall below 50,000 but she is uncomfortably close. She continues to do well on her GI medications. ROV 6 weeks to recheck CBC. Orders: Orders Colonoscopy - GI Use Only Today B18.2 - Chronic viral hepatitis C, B20 - Human immunodeficiency virus [HIV] disease, D69.6 - Thrombocytopenia, unspecified, Z80.0 - Family history of malignant neoplasm of digestive organs Medications: New peg 3350-electrolytes 236-22.74-6.74 -5.86 gram (Golytely) until fecal effluent is clear; do not exceed a total volume of 2,000 mL 240 mL PO Q10M 4,000 mL 0RF 1 day Z12.11 - Encounter for screening for malignant neoplasm of colon bisacodyl (Dulcolax (bisacodyl)) 10 mg (2 x 5 mg) PO BEDTIME 60 tabs 6RF 30 days K59.04 - Chronic idiopathic constipation Refilled dexlansoprazole (Dexilant) 60 mg PO DAILY 90 caps 3RF 90 days Discontinued bisacodyl Discontinued Reason: Doctor's Order 10 mg (2 x 5 mg) PO BEDTIME 180 tabs 2RF COLONOSCOPY Scheduled for 02/2024 ? BIOPSY TODAY'S VISIT [place] #Dain Lacy She says that the colonoscopy in February was cancelled and that she needs to call the schedulers to reschedule it. She is asking for an EGD as well because she has occasional dysphagia of solid foods sticking from the collar bone to the mid sternal area. She also has HIV, so fungal etiology could be considered. She declines a trial of an anti fungal. This problem started about 2-3 mos ago and is worsening. She continues on her Dexilant, dulcolax prn and colace. She feels this is working well for her despite her report of dysphagia. ROV 6 mos PFSH Medical History HIV (human immunodeficiency virus infection) Chronic idiopathic constipation Chronic hepatitis C GERD with esophagitis Surgical History Hx of section Hx of colonoscopy History of esophagogastroduodenoscopy (EGD) Hx of cholecystectomy Hx of appendectomy Family History Father No problems noted. Mother No problems noted. Social History Alcohol intake: current Alcohol intake frequency: does not drink Patient Tobacco Use Status: Never used Tobacco Review of Systems Const Denies fatigue, Denies fever(s), Denies night sweats, Denies poor appetite and Denies weight loss ENT Reports Normal hearing present, Denies dental pain, Reports dysphagia, Denies hearing loss, Denies mouth pain, Denies odynophagia, Denies throat swelling, Denies tongue swelling and Reports other (Dentition adequate) Card Reports no additional complaints Resp Reports no additional complaints GI Details: Denies abdominal pain, Denies melena, Denies bloating, Denies hematochezia, Reports constipation, Denies GI cramping, Reports dysphagia, Denies excessive flatus, Denies early satiety, Reports heartburn, Denies diarrhea, Denies nausea, Denies odynophagia, Denies vomiting and Denies hematemesis Skin/Breast Denies pruritus, Denies lesions, Denies rash and Denies jaundice Neuro Reports Normal hearing present and Denies Abnormal speech present Endo Denies fatigue Aller/Immun Denies throat swelling and Denies tongue swelling Physical Exam Vital Signs: Last Vital Signs Pulse 65 10/25/23 10:35 BP 124/60 10/25/23 10:35 BMI result Body Mass Index 28.7 Const General: cooperative, no acute distress, well developed and well groomed Nutritional Appearance: well nourished and overweight Orientation/consciousness: oriented to person, oriented to place and oriented to time Limitations: language barrier HEENT Head: Yes normocephalic and Yes atraumatic Eyes General: appearance normal, both eyes and all related structures Pupils: Equal, round and reactive pupils present Neck Neck: Yes normal visual inspection and Yes no lymphadenopathy Thyroid: Thyroid normal Resp Effort & Inspection: normal respiratory effort and able to speak in complete sentences Auscultation: clear to auscultation bilaterally Cardio Rate: regular rate Rhythm: regular rhythm Heart sounds: Normal, physiologic split S2 sound present Peripheral pulses: radial pulses present and posterior tibial pulses present GI Inspection: No distended, No Abdominal panniculus present and Yes obesity Palpation (GI): Soft to palpation, nontender, no guarding, not rigid and No hepatosplenomegaly present Percussion: Yes normal to percussion Auscultation: normal bowel sounds Rectal Exam - Female: deferred Skin General skin exam: no rashes or lesions noted, turgor normal, skin not dry, no jaundice, No spider nevi and no striae Rashes: no rashes Nails: normal Neuro General: oriented to person, oriented to place and oriented to time Cranial nerves: Yes Equal, round and reactive pupils present and Yes Normal hearing present Speech: No Abnormal speech present Extrem General: Yes normal to inspection, No clubbing, No cyanosis and No edema Psych Appearance: grossly normal and well kempt Mental Status: mental status grossly normal Speech and movement: Normal speech and movement present Affect: normal affect Attitude: cooperative Thought process: Normal thought process present and not confabulating Thought content: Normal thought content present Insight: Limited insight present (Psych) Judgement: Limited judgement present (Psych) Assessment & Plan Assessment & Plan (1) Chronic idiopathic constipation: Code(s): K59.04 - Chronic idiopathic constipation Category: Medical (2) GERD with esophagitis: Comment: 2018 EGD showed small sliding HH, foreshortened esophagus, alot of pharyngeal tissue Code(s): K21.00 - Gastro-esophageal reflux disease with esophagitis, without bleeding Category: Medical (3) Family history of colon cancer: Comment: sister age 45 survived a 2nd sister has a history of polyps as well, 2020 scope repeat 3 years Code(s): Z80.0 - Family history of malignant neoplasm of digestive organs Category: Medical (4) Dysphagia: Code(s): R13.10 - Dysphagia, unspecified Category: Medical (5) Pre-op examination: Code(s): Z01.818 - Encounter for other preprocedural examination Category: Medical (6) HIV (human immunodeficiency virus infection): Comment: on antiretroviral therapy--Last CD4 count was 973-(04/06/15) Code(s): B20 - Human immunodeficiency virus [HIV] disease Category: Medical (7) Chronic hepatitis C: Code(s): B18.2 - Chronic viral hepatitis C Category: Medical Plan [place] #Dain Lacy She says that the colonoscopy in February was cancelled and that she needs to call the schedulers to reschedule it. She is asking for an EGD as well because she has occasional dysphagia of solid foods sticking from the collar bone to the mid sternal area. She also has HIV, so fungal etiology could be considered. She declines a trial of an anti fungal. This problem started about 2-3 mos ago and is worsening. She continues on her Dexilant, dulcolax prn and colace. She feels this is working well for her despite her report of dysphagia. ROV 6 mos Orders: Orders EGD/[place] Combo - GI Use Only Today R13.10 - Dysphagia, unspecified Medications: Refilled docusate sodium 100 mg PO DAILY 90 caps 0RF dexlansoprazole (Dexilant) 60 mg PO DAILY 90 caps 3RF 90 days bisacodyl (Dulcolax (bisacodyl)) 10 mg (2 x 5 mg) PO BEDTIME 60 tabs 6RF 30 days K59.04 - Chronic idiopathic constipation Coding Level of Care Code Est Pt Level 4 (83843) Diagnoses Chronic idiopathic constipation K59.04 GERD with esophagitis K21.00 Family history of colon cancer Z80.0 Dysphagia R13.10 Pre-op examination Z01.818 HIV (human immunodeficiency virus infection) B20 Chronic hepatitis C B18.2
[2023-10-25 10:35] VITALS: BP 124/60; PULSE 65; BMI 28.7
== END 2023-10-25 10:58 | disposition home or self-care (01) ==
PROVIDERS: PCP Student in an Organized Health Care Education/Training Program; Visit Provider Nurse Practitioner
DX: K59.04 Chronic idiopathic constipation (principal); K21.00 Gastro-esophageal reflux disease with esophagitis, without bleeding; Z80.0 Family history of malignant neoplasm of digestive organs; R13.10 Dysphagia, unspecified; Z01.818 Encounter for other preprocedural examination; B20 Human immunodeficiency virus [HIV] disease; B18.2 Chronic viral hepatitis C
CPT/HCPCS: 99214

== ENCOUNTER → 2023-10-25 10:18 | Outpatient (BNVA) | payer MEDICAID, SELFPAY | PROVIDERS: PCP Student in an Organized Health Care Education/Training Program; Visit Provider Nurse Practitioner | DX: Z01.818 Encounter for other preprocedural examination (principal); K59.04 Chronic idiopathic constipation; K21.00 Gastro-esophageal reflux disease with esophagitis, without bleeding; R13.10 Dysphagia, unspecified; Z80.0 Family history of malignant neoplasm of digestive organs; B20 Human immunodeficiency virus [HIV] disease; B18.2 Chronic viral hepatitis C | CPT/HCPCS: 99212 ==

== ENCOUNTER 2023-12-27 10:52 | Outpatient (REF) | payer MEDICAID, SELFPAY ==
--- NOTE | ~2023-12-27 | XR_ITS ---
EXAMINATION: XR FOOT, RIGHT CLINICAL INFORMATION: Pain in joint of right foot. COMPARISON: August 08, 2012. TECHNIQUE: AP, lateral, and oblique views of the right foot. FINDINGS: Moderate dorsal and plantar calcaneal spurs. Moderate degenerative changes in the first metatarsophalangeal joint with joint space narrowing and hypertrophic change. XR/XR foot RT min 3V IMPRESSION: 1. Moderate degenerative changes first metatarsophalangeal joint. 2. Moderate dorsal and plantar calcaneal spurs. 3. No displaced fracture. Recommend follow-up imaging in 10-14 days if fracture is suspected.
== END 2023-12-27 10:53 | disposition home or self-care (01) ==
LOC: HO.XRAY 10:52
PROVIDERS: Absent Provider Student in an Organized Health Care Education/Training Program; PCP Student in an Organized Health Care Education/Training Program; Visit Provider Registered Nurse
DX: M25.571 Pain in right ankle and joints of right foot (principal)
CPT/HCPCS: 73630

== ENCOUNTER 2024-02-19 09:19 | Outpatient (REF) | payer MEDICAID, SELFPAY ==
--- NOTE | ~2024-02-19 | MM_ITS ---
EXAMINATION: MM SCREENING DIGITAL BREAST TOMOSYNTHESIS, BILATERAL CLINICAL INFORMATION: Screening. Asymptomatic. COMPARISON: Mammography: Comparison is made with available priors TECHNIQUE: Digital breast mammography with tomosynthesis is performed in both the craniocaudal and mediolateral oblique views along with computer-aided detection (CAD). FINDINGS: There are scattered areas of fibroglandular density (ACR BI-RADS breast composition Category b). There are no significant masses, abnormal calcifications, or other abnormalities. MM/MM tomosynthesis screening BI IMPRESSION: No mammographic evidence of malignancy. ASSESSMENT: BI-RADS BI-RADS 1 - Negative RECOMMENDATION: Routine annual mammography screening. 1 year F/U This examination should not preclude the clinical evaluation of a suspicious palpable abnormality. This patient's information was entered into a reminder system with a target due date for their next mammogram. Electronically signed by: Cuca Winchester DO 02/29/2024 12:35 PM EDT
== END 2024-02-19 09:20 | disposition home or self-care (01) ==
LOC: HO.MAMMO 09:19
PROVIDERS: PCP Student in an Organized Health Care Education/Training Program; Visit Provider Student in an Organized Health Care Education/Training Program
DX: Z12.31 Encounter for screening mammogram for malignant neoplasm of breast (principal)
CPT/HCPCS: 77063; 77067

== ENCOUNTER → 2024-02-19 09:30 | Outpatient (BNV) | payer MEDICAID, SELFPAY | PROVIDERS: PCP Student in an Organized Health Care Education/Training Program; Visit Provider Internal Medicine | DX: Z12.31 Encounter for screening mammogram for malignant neoplasm of breast (principal) | CPT/HCPCS: 77063; 77067 ==

== ENCOUNTER 2024-03-13 08:01 | Day surgery (SDC) | payer MEDICAID, SELFPAY ==
--- NOTE | 2024-03-11 10:22 | HO.ANESPROP2 ---
HPI - Anesthesia Eval Consult details Narrative: 59yo F for Upper Endoscopy and Colonoscopy PMF Active Problems Active Problems: All Active Problems Dysphagia (Acute) Pre-op examination (Acute) HIV (human immunodeficiency virus infection) (Acute) Thrombocytopenia (Acute) Asthma (Acute) GERD with esophagitis (Acute) Chronic hepatitis C (Acute) Chronic idiopathic constipation (Acute) Family history of colon cancer (Acute) Abdominal pain (Acute) Past Medical History Medical History HIV (human immunodeficiency virus infection) Chronic idiopathic constipation Chronic hepatitis C GERD with esophagitis Family History Family History Father No problems noted. Mother No problems noted. Surgical History Surgical History Hx of section Hx of colonoscopy History of esophagogastroduodenoscopy (EGD) Hx of cholecystectomy Hx of appendectomy Social History Social History Alcohol intake: current Alcohol intake frequency: does not drink Patient Tobacco Use Status: Never used Tobacco Meds Allergies Allergy/AdvReac Type Severity Reaction Status Date / Time ibuprofen [From Motrin] Allergy Intermediate RASH Verified 10/25/23 10:42 Sulfa (Sulfonamide Allergy Intermediate RASH Verified 10/25/23 10:42 Antibiotics) Motrin Allergy Unknown Rash Uncoded 09/13/23 10:03 Home Medications ?Medication ?Instructions ?Recorded ?Confirmed ?Last Taken ?Type albuterol sulfate 90 mcg/actuation 2 puff inhalation Q4-6H PRN 08/11/20 09/07/20 Unknown History aerosol inhaler (ProAir HFA) aspirin 81 mg tablet,delayed 81 mg PO DAILY 08/11/20 09/07/20 Unknown History release (Adult Low Dose Aspirin) clonazepam 0.5 mg tablet 0.5 mg PO BEDTIME 08/11/20 09/07/20 Unknown History elviteg 150 mg-cob 150 mg-emtricit 1 tab PO DAILY 08/11/20 09/07/20 Unknown History 200 mg-tenofo alafenam 10 mg tablet (Genvoya) lidocaine 5 % topical ointment 1 appl topical BID 08/11/20 09/07/20 Unknown History meclizine 25 mg tablet 25 mg PO TID 08/11/20 09/07/20 Unknown History zolpidem 10 mg tablet (Ambien) 10 mg PO BEDTIME PRN 08/11/20 09/07/20 Unknown History albuterol sulfate 2.5 mg/3 mL mg inhalation Q4-6H 07/19/22 Unknown History (0.083 %) solution for nebulization baclofen 10 mg tablet 10 mg PO BID PRN 07/19/22 Unknown History ergocalciferol (vitamin D2) 1,250 1,250 mcg PO QWEEK 07/19/22 Unknown History mcg (50,000 unit) capsule lidocaine-prilocaine 2.5 %-2.5 % g topical DAILY PRN 07/19/22 Unknown History topical cream oxycodone 5 mg tablet 10 mg PO DAILY PRN moderate pain 07/19/22 Unknown History mometasone 200 mcg/actuation HFA 1 puff inhalation BID 10/25/23 Unknown History aerosol inhaler (Asmanex HFA) Assessment and Plan Assessment Anesthesia Assessment: Chart Reviewed
--- NOTE | 2024-03-13 09:41 | HO.ANESPROP2 ---
FORMERLY [facility], [facility] Active Problems Active Problems: All Active Problems Dysphagia (Acute) Pre-op examination (Acute) HIV (human immunodeficiency virus infection) (Acute) Thrombocytopenia (Acute) Asthma (Acute) GERD with esophagitis (Acute) Chronic hepatitis C (Acute) Chronic idiopathic constipation (Acute) Family history of colon cancer (Acute) Abdominal pain (Acute) Past Medical History Medical History HIV (human immunodeficiency virus infection) Chronic idiopathic constipation Chronic hepatitis C GERD with esophagitis Functional capacity: independent ambulation Patient : No Family History Family History Father No problems noted. Mother No problems noted. Family history of problems with anesthesia: No Surgical History Surgical History Hx of section Hx of colonoscopy History of esophagogastroduodenoscopy (EGD) Hx of cholecystectomy Hx of appendectomy History of Problems with Anesthesia: No Social History Social History Alcohol intake: current Alcohol intake frequency: does not drink Patient Tobacco Use Status: Never used Tobacco Advance Directives: No Advance Directives Information Provided: Yes Meds Allergies Allergy/AdvReac Type Severity Reaction Status Date / Time ibuprofen [From Motrin] Allergy Intermediate RASH Verified 10/25/23 10:42 Sulfa (Sulfonamide Allergy Intermediate RASH Verified 10/25/23 10:42 Antibiotics) Motrin Allergy Unknown Rash Uncoded 09/13/23 10:03 Active Medications: Current Medications Lactated Ringer's (Lr) 1,000 mls @ 100 mls/hr IVCONT .Q10H RIO Home Medications ?Medication ?Instructions ?Recorded ?Confirmed ?Last Taken ?Type albuterol sulfate 90 mcg/actuation 2 puff inhalation Q4-6H PRN 08/11/20 09/07/20 Unknown History aerosol inhaler (ProAir HFA) aspirin 81 mg tablet,delayed 81 mg PO DAILY 08/11/20 09/07/20 Unknown History release (Adult Low Dose Aspirin) clonazepam 0.5 mg tablet 0.5 mg PO BEDTIME 08/11/20 09/07/20 Unknown History elviteg 150 mg-cob 150 mg-emtricit 1 tab PO DAILY 08/11/20 09/07/20 Unknown History 200 mg-tenofo alafenam 10 mg tablet (Genvoya) lidocaine 5 % topical ointment 1 appl topical BID 08/11/20 09/07/20 Unknown History meclizine 25 mg tablet 25 mg PO TID 08/11/20 09/07/20 Unknown History zolpidem 10 mg tablet (Ambien) 10 mg PO BEDTIME PRN 08/11/20 09/07/20 Unknown History albuterol sulfate 2.5 mg/3 mL mg inhalation Q4-6H 07/19/22 Unknown History (0.083 %) solution for nebulization baclofen 10 mg tablet 10 mg PO BID PRN 07/19/22 Unknown History ergocalciferol (vitamin D2) 1,250 1,250 mcg PO QWEEK 07/19/22 Unknown History mcg (50,000 unit) capsule lidocaine-prilocaine 2.5 %-2.5 % g topical DAILY PRN 07/19/22 Unknown History topical cream oxycodone 5 mg tablet 10 mg PO DAILY PRN moderate pain 07/19/22 Unknown History mometasone 200 mcg/actuation HFA 1 puff inhalation BID 10/25/23 Unknown History aerosol inhaler (Asmanex HFA) Exam Airway Mallampati Class: II TM Dist: >3cm Neck ROM: Full Heart: RRR Lungs: CTA Assessment and Plan Assessment Anesthesia Assessment: Anesthesia Plan Discussed and Chart Reviewed Final Anesthetic Review Family History of Problems with Anesthesia: No History of Problems with Anesthesia: No NPO: Yes ASA Class: II Final Preanesthetic Review: Meds/Allgs Chart Reviewed, Consent Obtained/Reviewed and Anes Risks/Benef Reviewed Patient Risk: Low Procedure Risk: Low Anesthetic Plan Anesthetic Plan: MAC: Disposition: Standard PACU
[2024-03-13 09:46] VITALS: BMI 28.3
--- NOTE | 2024-03-13 09:48 | MHC.SHP ---
Pre-Procedural Eval Section A - 24 Hr Update-Section A only Date of Service: 03/13/24 Section B - Complete if H&P > 30 days Chief Complaint: Fam hx of CRC Details of Present Illness: PMH: HIV (human immunodeficiency virus infection) Chronic idiopathic constipation Chronic hepatitis C GERD with esophagitis Surgical History Hx of section Hx of colonoscopy History of esophagogastroduodenoscopy (EGD) Hx of cholecystectomy Hx of appendectomy Allergies: Allergies Allergy/AdvReac Type Severity Reaction Status Date / Time ibuprofen [From Motrin] Allergy Intermediate RASH Verified 10/25/23 10:42 Sulfa (Sulfonamide Allergy Intermediate RASH Verified 10/25/23 10:42 Antibiotics) Motrin Allergy Unknown Rash Uncoded 09/13/23 10:03 Review of Systems Review of Systems Comment: Ten point ROS negative Exam Exam Comment: Gen appear: No acute distress HEENT: no icterus Chest: No overt resp distress Abd: soft, nontender, nondistended Psych: Stable affect, answering questions appropriately Neuro: A/Ox3 noted to move all extremities spontaneously Ext: no peripheral edema Plan Diagnosis/Plan: Unchanged I have reviewed the history and physical and performed a pertinent physical examination on my patient. No changes have occurred unless specified. Based on labs review, pt likely has cirrhosis. This was briefly discussed with the pt in the pre-op bay. Time Spent With Patient Time: Total time managing care of this patient today ____ minutes.
[2024-03-13 09:55] VITALS: BP 118/64; PULSE 62; RESP 16; TEMP 36.9; O2SAT 97
--- NOTE | 2024-03-13 10:04 | HO.ANESPROP2 ---
[facility] Active Problems Active Problems: All Active Problems Dysphagia (Acute) Pre-op examination (Acute) HIV (human immunodeficiency virus infection) (Acute) Thrombocytopenia (Acute) Asthma (Acute) GERD with esophagitis (Acute) Chronic hepatitis C (Acute) Chronic idiopathic constipation (Acute) Family history of colon cancer (Acute) Abdominal pain (Acute) Past Medical History Medical History HIV (human immunodeficiency virus infection) Chronic idiopathic constipation Chronic hepatitis C GERD with esophagitis Functional capacity: independent ambulation Family History Family History Father No problems noted. Mother No problems noted. Family history of problems with anesthesia: No Surgical History Surgical History Hx of section Hx of colonoscopy History of esophagogastroduodenoscopy (EGD) Hx of cholecystectomy Hx of appendectomy History of Problems with Anesthesia: No Social History Social History Alcohol intake: current Alcohol intake frequency: does not drink Patient Tobacco Use Status: Never used Tobacco Use of substances other than those prescribed or required for medical reasons: No Are you DNR?: No Advance Directives: No Advance Directives Information Provided: Yes Patient : No Meds Allergies Allergy/AdvReac Type Severity Reaction Status Date / Time ibuprofen [From Motrin] Allergy Intermediate RASH Verified 10/25/23 10:42 Sulfa (Sulfonamide Allergy Intermediate RASH Verified 10/25/23 10:42 Antibiotics) Motrin Allergy Unknown Rash Uncoded 09/13/23 10:03 Active Medications: Current Medications Lactated Ringer's (Lr) 1,000 mls @ 100 mls/hr IVCONT .Q10H RIO Home Medications ?Medication ?Instructions ?Recorded ?Confirmed ?Last Taken ?Type albuterol sulfate 90 mcg/actuation 2 puff inhalation Q4-6H PRN 08/11/20 09/07/20 Unknown History aerosol inhaler (ProAir HFA) aspirin 81 mg tablet,delayed 81 mg PO DAILY 08/11/20 09/07/20 Unknown History release (Adult Low Dose Aspirin) clonazepam 0.5 mg tablet 0.5 mg PO BEDTIME 08/11/20 09/07/20 Unknown History elviteg 150 mg-cob 150 mg-emtricit 1 tab PO DAILY 08/11/20 09/07/20 Unknown History 200 mg-tenofo alafenam 10 mg tablet (Genvoya) lidocaine 5 % topical ointment 1 appl topical BID 08/11/20 09/07/20 Unknown History meclizine 25 mg tablet 25 mg PO TID 08/11/20 09/07/20 Unknown History zolpidem 10 mg tablet (Ambien) 10 mg PO BEDTIME PRN 08/11/20 09/07/20 Unknown History albuterol sulfate 2.5 mg/3 mL mg inhalation Q4-6H 07/19/22 Unknown History (0.083 %) solution for nebulization baclofen 10 mg tablet 10 mg PO BID PRN 07/19/22 Unknown History ergocalciferol (vitamin D2) 1,250 1,250 mcg PO QWEEK 07/19/22 Unknown History mcg (50,000 unit) capsule lidocaine-prilocaine 2.5 %-2.5 % g topical DAILY PRN 07/19/22 Unknown History topical cream oxycodone 5 mg tablet 10 mg PO DAILY PRN moderate pain 07/19/22 Unknown History mometasone 200 mcg/actuation HFA 1 puff inhalation BID 10/25/23 Unknown History aerosol inhaler (Asmanex HFA) Exam Height,Weight and Vital Signs: Height 5 ft 2 in Weight 70.307 kg Airway Mallampati Class: III TM Dist: >3cm Neck ROM: Full Heart: RRR Lungs: CTA Assessment and Plan Assessment Anesthesia Assessment: Anesthesia Plan Discussed and Chart Reviewed Final Anesthetic Review Family History of Problems with Anesthesia: No History of Problems with Anesthesia: No NPO: Yes ASA Class: III Final Preanesthetic Review: Meds/Allgs Chart Reviewed, Consent Obtained/Reviewed and Anes Risks/Benef Reviewed Patient Risk: Intermediate Procedure Risk: Low Anesthetic Plan Anesthetic Plan: MAC: Disposition: Standard PACU
[2024-03-13] MEDS: Lactated Ringers 1,000 ML 100 ML IVCONT (10:31)
--- NOTE | 2024-03-13 10:35 | P.OPN-COLO_ITS ---
Colonoscopy Operative Note Operative Note Date of Service: 03/13/24 Narrative: Procedure: Upper endoscopy and colonoscopy Indication: Dysphagia, fam hx of colon ca Endoscopist: Myrtle Pardo MD Anesthesia Provider: Dr Savanah Gomez Anesthesia type: MAC Instrument: [id number] and [id number] EGD Procedure:?? The procedure, indications, preparation and potential complications were reviewed with the patient, who indicated understanding and gave written informed consent to proceed. The endoscope was introduced through the mouth, and advanced to the 2nd part of the duodenum. The mucosa was carefully examined on slow withdrawal of the endoscope. The patient tolerated the procedure well. There were no immediate complications.? EGD Findings:? * Esophagus:? Erythema and ulceration of GEJ with a healing ulcer noted at Z line. Small varices that flattened completely on insufflation. The Z-line was at 32 cm. There was a medium hiatal hernia with diaphragmatic hiatus at 36 cm. * Stomach:?Erythema in a mosaic pattern suspicious for portal hypertensive gastropathy. Retroflexion was performed in the cardia that showed Hill grade 3 hiatal hernia. There was a 2 cm antral nodule in 1 o'clock position to the pylorus, close to the greater curvature. Cold forceps biopsies were taken from the nodule. Random cold forceps biopsies were taken from the stomach. * Duodenum:? Normal duodenal mucosa. Cold forceps biopsies were taken from the duodenal bulb and 2nd portion of the duodenum to rule out celiac sprue. Colonoscopy Procedure:? The patient was then turned for the colonoscopy. A digital rectal exam was performed which was abnormal for external hemorrhoids.? A distal attachment cap was affixed to the tip of the scope and the colonoscope was then inserted through the anus and advanced through the colon and advanced to the cecum at 75 cm.? Appendiceal orifice and ileocecal valve were identified. Mucosa was carefully examined under high definition white light as the instrument was slowly withdrawn in a retrograde panoramic fashion. Retroflexion was performed in rectum. The procedure was not difficult. The quality of the prep was BBPS: 2+2+2 = adequate Withdrawal time 23 minutes Limitations: No limitations Findings: Mucosa: Normal colon and terminal ileum mucosa. Protruding lesions: * 8 sessile polyps were noted in the cecum of size 2-5 mm. Cold snare polypectomy was performed. The polyps were completely removed but some of the polyps could not be retrieved. * 1 pedunculated polyp of size 8 mm in the cecum with ulceration at the tip. Hot snare polypectomy was attempted, but the polyp was inadvertently cut as cold. Polyp was completely removed and retrieved and sent in a separate jar. * 3 sessile polyps were noted in the ascending colon of size 3-5 mm. Cold snare polypectomy was performed. The polyps were completely removed but some of the polyps could not be retrieved. * 1 sessile polyp of size 4 mm was noted in the transverse colon. Cold snare polypectomy was performed. The polyp was completely removed and retrieved. * Medium internal hemorrhoids without stigmata of recent bleeding. Excavated lesions: * [id number] diverticulosis of sigmoid colon. Impression: 1. Grade D esophagitis 2. Flat varices 3. Possible PHG (biopsy) 4. Antral nodule (biopsy) 5. Normal duodenum (biopsy) 6. Normal colon mucosa 7. 13 polyps removed from the colon 8. Internal and external hemorrhoids 9. Diverticulosis Recommendations:?? * omeprazole 20 BID x 8 weeks and then once daily * Repeat EGD to assess for healing in a few months * Follow-up path results * If the polyps are all adenoma or SSL, consider genetic testing for polyposis syndrome paul given family history * Recommend repeat coonoscopy in 1 year * Likely has underlying cirrhosis with CSPH. MELD and HCV labs to be drawn in post-op. US abd ordered. *
[2024-03-13 11:35] VITALS: BP 117/63; PULSE 74; RESP 16; TEMP 36.1; O2SAT 96
[2024-03-13 11:50] VITALS: BP 126/74; PULSE 69; RESP 16; O2SAT 96
[2024-03-13 12:05] VITALS: BP 133/68; PULSE 64; RESP 16; TEMP 36.1; O2SAT 94
[2024-03-13 12:23] LABS: Hematocrit 35.9 % (37.0-47.0); Hemoglobin 12.7 g/dl (12.0-16.0); Mean Corpuscular HGB Conc 35.4 g/dl (31.0-35.0); Mean Corpuscular Hemoglobin 33.5 pg (27.0-33.0); Mean Corpuscular Volume 94.7 fL (80.0-98.0); Mean Platelet Volume 10.3 fL (9.4-12.3); Platelet Count 51 X10*3/uL (160-400); Red Blood Count 3.79 X10*6/uL (4.20-5.50); Red Cell Distribution Width 13.6 % (11.0-16.0); White Blood Count 4.3 X10*3/uL (4.8-10.8)
[2024-03-13 12:26] LABS: INTERNATIONAL NORM RATIO 1.4 (0.9-1.1); Prothrombin Time 16.1 SEC (10.9-12.4)
[2024-03-13 12:34] LABS: Alanine Aminotransferase 44 U/L (0-31); Albumin Level 2.7 g/dL (3.5-5.0); Alkaline Phosphatase 142 U/L (39-117); Anion Gap 7 (12-20); Aspartate Amino Transferase 62 U/L (5-31); Bilirubin Total 2.3 mg/dL (0.0-1.0); Blood Urea Nitrogen 8 mg/dL (9-16); Calcium 8.6 mg/dL (8.4-10.2); Carbon Dioxide 27 mmol/L (22-29); Chloride 108 mmol/L (96-108); Creatinine Clr Calc Pharmacy 49.3; Estimated Glomerular Filt Rate 50; Glucose Random 100 mg/dL (60-115); Potassium 4.2 mmol/L (3.3-5.1); Sodium 138 mmol/L (135-145); Total Protein 6.3 g/dL (6.5-8.0)
--- NOTE | 2024-03-13 12:40 | HO.POSTANES ---
Post Anesthesia Evaluation Post Anesthesia Evaluation Date of Service: 03/13/24 Vital Signs: Vital Signs Temp Pulse Resp BP Pulse Ox O2 Del Method 03/13/24 12:05 97.0 F 64 16 133/68 94 Room Air 03/13/24 11:50 69 16 126/74 96 Room Air 03/13/24 11:35 97.0 F 74 16 117/63 96 Room Air 03/13/24 09:55 98.5 F 62 16 118/64 97 Room Air Anesthesia: Monitored and Epidural Mental Status: Awake Pain Control: Satisfactory Nausea/Vomiting: None Hydration: Adequate Anesthesia-Related Issues: No Anes. Related Issues
[2024-03-13 12:53] LABS: HBS Num1 2.28 mIU/mL (0-7.99); HBc Num1 0.33 S/CO (0.00-0.79); HBsAGNum1 0.53 S/CO (0.00-0.99); Hepatitis B Core Antibody Nonreactive (Nonreactive); Hepatitis B Surface Antigen Negative (Negative); ~Hepatitis B Surface Antibody NONREACTIVE (Nonreactive)
[2024-03-14 13:43] LABS: HCV RNA PCR Qn 477000 IU/mL (NOT DETECTED); HCV RNA PCR Qn 5.68 Log IU/mL (NOT DETECTED)
[2024-03-18 17:02] LABS: HCV Genotype LiPA 3
[2024-03-19 14:18] LABS: Hepatitis C Genotype 3
== END 2024-03-13 13:01 | disposition home or self-care (01) ==
PROVIDERS: PCP Student in an Organized Health Care Education/Training Program; Visit Provider Internal Medicine
PROC: (CPT 43239; principal; 2024-03-13 11:30)
DX: K21.00 Gastro-esophageal reflux disease with esophagitis, without bleeding (principal); I85.00 Esophageal varices without bleeding; K44.9 Diaphragmatic hernia without obstruction or gangrene; K31.9 Disease of stomach and duodenum, unspecified; R13.10 Dysphagia, unspecified; Z12.11 Encounter for screening for malignant neoplasm of colon; D12.0 Benign neoplasm of cecum; D12.2 Benign neoplasm of ascending colon; K51.40 Inflammatory polyps of colon without complications; K57.30 Diverticulosis of large intestine without perforation or abscess without bleeding; K64.8 Other hemorrhoids; K64.4 Residual hemorrhoidal skin tags; Z80.0 Family history of malignant neoplasm of digestive organs; B20 Human immunodeficiency virus [HIV] disease; B18.2 Chronic viral hepatitis C; D69.6 Thrombocytopenia, unspecified; J45.909 Unspecified asthma, uncomplicated; K59.04 Chronic idiopathic constipation
CPT/HCPCS: 43239; 45385; 36415; 80053; 85027; 85610; 86704; 86706; 87340; 87522; 87902; 88305; 88313; 88342; J2003; J2704

== ENCOUNTER → 2024-03-13 08:01 | Outpatient (BNV) | payer MEDICAID, SELFPAY | PROVIDERS: PCP Student in an Organized Health Care Education/Training Program; Visit Provider Internal Medicine | DX: Z12.11 Encounter for screening for malignant neoplasm of colon (principal); Z80.0 Family history of malignant neoplasm of digestive organs; D12.3 Benign neoplasm of transverse colon; K57.30 Diverticulosis of large intestine without perforation or abscess without bleeding; D12.0 Benign neoplasm of cecum; R13.10 Dysphagia, unspecified; K20.90 Esophagitis, unspecified without bleeding; I85.00 Esophageal varices without bleeding | CPT/HCPCS: 43239; 45385 ==

== ENCOUNTER 2024-03-21 11:31 | Outpatient (REF) | payer MEDICAID, SELFPAY | END 2024-03-21 11:32 | disposition home or self-care (01) | LOC: HO.US 11:31 | PROVIDERS: PCP Student in an Organized Health Care Education/Training Program; Visit Provider Internal Medicine | DX: B18.2 Chronic viral hepatitis C (principal) | CPT/HCPCS: 76700 ==

== ENCOUNTER 2024-03-27 10:46 | Outpatient (AMB) | payer MEDICAID, SELFPAY ==
--- NOTE | 2024-03-27 10:52 | MHC.OFFVIS ---
Vital Signs 03/27/24 10:54 Height 5 ft 2 in Weight 157 lb 6.561 oz BMI 28.8 BP 127/59 L Blood Pressure Location Lt brachial Position Sitting Pulse 66 Intake Visit Reasons: s/p egd/colon Intake Note: Isa returns to in office follow up s/p EGD and colonoscopy. CC: Patient reports doing well and denies having any GI symptoms today. 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 Accompanied by: Self / Same As Patient Allergies ibuprofen [From Motrin] Allergy (Intermediate, Verified 03/27/24 10:59) RASH Sulfa (Sulfonamide Antibiotics) Allergy (Intermediate, Verified 03/27/24 10:59) RASH Motrin Allergy (Unknown, Uncoded 09/13/23 10:03) Rash HPI HPI s/p egd/colon: Details: Assessment & Plan (1) Chronic idiopathic constipation: Code(s): K59.04 - Chronic idiopathic constipation Category: Medical (2) GERD with esophagitis: Comment: 2018 EGD showed small sliding HH, foreshortened esophagus, alot of pharyngeal tissue Code(s): K21.00 - Gastro-esophageal reflux disease with esophagitis, without bleeding Category: Medical (3) Family history of colon cancer: Comment: sister age 45 survived a 2nd sister has a history of polyps as well, 2020 scope repeat 3 years Code(s): Z80.0 - Family history of malignant neoplasm of digestive organs Category: Medical (4) Dysphagia: Code(s): R13.10 - Dysphagia, unspecified Category: Medical (5) Pre-op examination: Code(s): Z01.818 - Encounter for other preprocedural examination Category: Medical (6) HIV (human immunodeficiency virus infection): Comment: on antiretroviral therapy--Last CD4 count was 973-(04/06/15) Code(s): B20 - Human immunodeficiency virus [HIV] disease Category: Medical (7) Chronic hepatitis C: Code(s): B18.2 - Chronic viral hepatitis C Category: Medical Plan Togolese #Dain Lacy She says that the colonoscopy in February was cancelled and that she needs to call the schedulers to reschedule it. She is asking for an EGD as well because she has occasional dysphagia of solid foods sticking from the collar bone to the mid sternal area. She also has HIV, so fungal etiology could be considered. She declines a trial of an anti fungal. This problem started about 2-3 mos ago and is worsening. She continues on her Dexilant, dulcolax prn and colace. She feels this is working well for her despite her report of dysphagia. ROV 6 mos Orders: Orders EGD/[place] Combo - GI Use Only Today R13.10 - Dysphagia, unspecified Medications: Refilled docusate sodium 100 mg PO DAILY 90 caps 0RF dexlansoprazole (Dexilant) 60 mg PO DAILY 90 caps 3RF 90 days bisacodyl (Dulcolax (bisacodyl)) 10 mg (2 x 5 mg) PO BEDTIME 60 tabs 6RF 30 days K59.04 - Chronic idiopathic constipation EGD/COLONOSCOPY 03/13/24 EGD Findings:? Esophagus:? Erythema and ulceration of GEJ with a healing ulcer noted at Z line. Small varices that flattened completely on insufflation. The Z-line was at 32 cm. There was a medium hiatal hernia with diaphragmatic hiatus at 36 cm. Stomach:?Erythema in a mosaic pattern suspicious for portal hypertensive gastropathy. Retroflexion was performed in the cardia that showed Hill grade 3 hiatal hernia. There was a 2 cm antral nodule in 1 o'clock position to the pylorus, close to the greater curvature. Cold forceps biopsies were taken from the nodule. Random cold forceps biopsies were taken from the stomach. Duodenum:? Normal duodenal mucosa. Cold forceps biopsies were taken from the duodenal bulb and 2nd portion of the duodenum to rule out celiac sprue. Findings: Mucosa: Normal colon and terminal ileum mucosa. Protruding lesions: 8 sessile polyps were noted in the cecum of size 2-5 mm. Cold snare polypectomy was performed. The polyps were completely removed but some of the polyps could not be retrieved. 1 pedunculated polyp of size 8 mm in the cecum with ulceration at the tip. Hot snare polypectomy was attempted, but the polyp was inadvertently cut as cold. Polyp was completely removed and retrieved and sent in a separate jar. 3 sessile polyps were noted in the ascending colon of size 3-5 mm. Cold snare polypectomy was performed. The polyps were completely removed but some of the polyps could not be retrieved. 1 sessile polyp of size 4 mm was noted in the transverse colon. Cold snare polypectomy was performed. The polyp was completely removed and retrieved. Medium internal hemorrhoids without stigmata of recent bleeding. Excavated lesions: [id number] diverticulosis of sigmoid colon. Impression: 1. Grade D esophagitis 2. Flat varices 3. Possible PHG (biopsy) 4. Antral nodule (biopsy) 5. Normal duodenum (biopsy) 6. Normal colon mucosa 7. 13 polyps removed from the colon 8. Internal and external hemorrhoids 9. Diverticulosis Recommendations:?? omeprazole 20 BID x 8 weeks and then once daily Repeat EGD to assess for healing in a few months Follow-up path results If the polyps are all adenoma or SSL, consider genetic testing for polyposis syndrome paul given family history Recommend repeat coonoscopy in 1 year Likely has underlying cirrhosis with CSPH. MELD and HCV labs to be drawn in post-op. US abd ordered. BIOPSY Addendum Addendum #1 Part C. Upon additional review, the gastric antral mucosa shows variable congestion of blood vessels within the lamina propria including some fibrosis which suggest features of portal hypertensive gastropathy. No fibrin thrombi are seen. Clinical and endoscopic correlation is advised. Electronically Signed By: Julieta Larson MD 03/21/24 [id number] Diagnosis A. Duodenum, biopsy: Duodenal mucosa with focal foveolar metaplasia; preserved villous architecture and no increase in intraepithelial lymphocytes seen. B. Stomach, biopsy: Gastric body mucosa with mild PPI effect; negative for Helicobacter pylori, intestinal metaplasia and dysplasia. C. Stomach, antral nodule, biopsy: Gastric antral mucosa with reactive gastropathy and patchy mild chronic inflammation; negative for Helicobacter pylori, intestinal metaplasia and dysplasia. D. Colon, cecum, polypectomy x8: Tubular adenoma (2); negative for high-grade dysplasia. E. Colon, cecum, ulcerated polyp, polypectomy: Inflammatory polyp. F. Colon, ascending, polypectomy x3: Tubular adenoma (1); negative for high-grade dysplasia. G. Colon, transverse, polypectomy: Clinically polypoid colonic mucosa noted; negative for a hyperplastic or neoplastic process TODAY'S VISIT [place]og[place]ese Dank Waddell The procedures to be repeated in 1 year. The procedure was well tolerated. The results were explained and the patient is agreeable to the follow-up interval as stated. The bowel pattern has returned to normal. Education was provided to tell any 1st degree relatives about their findings to be sure that they are screened by age 45. Educated that they will be put on a recall list when it is time for their repeat scope but should they move out of state or away from the hospital they will need to remember along with their primary to repeat the procedure in a timely fashion to avoid any adverse complications. She continues on her Dexilant, dulcolax prn and colace. She feels this is working well for her. Return office visit in 6 months [facility] Medical History (Updated 05/16/24 @ 14:57 by ARNAV Lindsey) Pre-op examination HIV (human immunodeficiency virus infection) Chronic idiopathic constipation Chronic hepatitis C GERD with esophagitis Surgical History Hx of section Hx of colonoscopy History of esophagogastroduodenoscopy (EGD) Hx of cholecystectomy Hx of appendectomy Family History Father No problems noted. Mother No problems noted. Social History Alcohol intake: current Alcohol intake frequency: does not drink Patient Tobacco Use Status: Never used Tobacco Review of Systems Const Denies fatigue, Denies fever(s), Denies night sweats, Denies poor appetite and Denies weight loss ENT Reports Normal hearing present, Denies dental pain, Denies dysphagia, Denies hearing loss, Denies mouth pain, Denies odynophagia, Denies throat swelling, Denies tongue swelling and Reports other (Dentition adequate) Card Reports no additional complaints Resp Reports no additional complaints GI Details: Denies abdominal pain, Denies melena, Denies bloating, Denies hematochezia, Reports constipation, Denies GI cramping, Denies dysphagia, Denies excessive flatus, Denies early satiety, Reports heartburn, Denies diarrhea, Denies nausea, Denies odynophagia, Denies vomiting and Denies hematemesis Skin/Breast Denies pruritus, Denies lesions, Denies rash and Denies jaundice Neuro Reports Normal hearing present and Denies Abnormal speech present Endo Denies fatigue Aller/Immun Denies throat swelling and Denies tongue swelling Physical Exam Vital Signs: Last Vital Signs Pulse 66 03/27/24 10:54 BP 127/59 L 03/27/24 10:54 BMI result Body Mass Index 28.8 Const General: cooperative, no acute distress, well developed and well groomed Nutritional Appearance: average body habitus and well nourished Orientation/consciousness: oriented to person, oriented to place and oriented to time Limitations: language barrier HEENT Head: Yes normocephalic and Yes atraumatic Eyes General: appearance normal, both eyes and all related structures Pupils: Equal, round and reactive pupils present Neck Neck: Yes normal visual inspection and Yes no lymphadenopathy Thyroid: Thyroid normal Resp Effort & Inspection: normal respiratory effort and able to speak in complete sentences Auscultation: clear to auscultation bilaterally Cardio Rate: regular rate Rhythm: regular rhythm Heart sounds: Normal, physiologic split S2 sound present Peripheral pulses: radial pulses present and posterior tibial pulses present GI Inspection: No distended and No Abdominal panniculus present Palpation (GI): Soft to palpation, nontender, no guarding, not rigid and No hepatosplenomegaly present Percussion: Yes normal to percussion Auscultation: normal bowel sounds Rectal Exam - Female: deferred Skin General skin exam: no rashes or lesions noted, turgor normal, skin not dry, no jaundice, No spider nevi and no striae Rashes: no rashes Nails: normal Neuro General: oriented to person, oriented to place and oriented to time Cranial nerves: Yes Equal, round and reactive pupils present and Yes Normal hearing present Speech: No Abnormal speech present Extrem General: Yes normal to inspection, No clubbing, No cyanosis and No edema Psych Appearance: grossly normal and well kempt Mental Status: mental status grossly normal Speech and movement: Normal speech and movement present Affect: normal affect Attitude: cooperative Thought process: Normal thought process present and not confabulating Thought content: Normal thought content present Insight: Limited insight present (Psych) Judgement: Limited judgement present (Psych) Assessment & Plan Assessment & Plan (1) Gastrointestinal multiple polyposis syndrome: Comment: 2023 scope= 7 or 8 polyps repeat in 1 year Code(s): D12.6 - Benign neoplasm of colon, unspecified Category: Medical (2) GERD with esophagitis: Comment: 2018 EGD showed small sliding HH, foreshortened esophagus, alot of pharyngeal tissue Code(s): K21.00 - Gastro-esophageal reflux disease with esophagitis, without bleeding Category: Medical (3) Chronic idiopathic constipation: Code(s): K59.04 - Chronic idiopathic constipation Category: Medical Plan Togolese #Chepe LIve The procedures to be repeated in 1 year. The procedure was well tolerated. The results were explained and the patient is agreeable to the follow-up interval as stated. The bowel pattern has returned to normal. Education was provided to tell any 1st degree relatives about their findings to be sure that they are screened by age 45. Educated that they will be put on a recall list when it is time for their repeat scope but should they move out of state or away from the hospital they will need to remember along with their primary to repeat the procedure in a timely fashion to avoid any adverse complications. She continues on her Dexilant, dulcolax prn and colace. She feels this is working well for her. Return office visit in 6 months Orders: Orders Colonoscopy - GI Use Only 03/27/24 D12.6 - Benign neoplasm of colon, unspecified Medications: Refilled dexlansoprazole (Dexilant) 60 mg PO DAILY 90 caps 3RF 90 days bisacodyl (Dulcolax (bisacodyl)) 10 mg (2 x 5 mg) PO BEDTIME 60 tabs 6RF 30 days K59.04 - Chronic idiopathic constipation docusate sodium 100 mg PO DAILY 90 caps 0RF Discontinued peg 3350-electrolytes 236-22.74-6.74 -5.86 gram until fecal effluent is clear; do not exceed a total volume of 2,000 mL Discontinued Reason: Patient Completed Course 240 mL PO Q10M 1 day 4,000 mL 0RF Z12.11 - Encounter for screening for malignant neoplasm of colon bisacodyl the day before colonoscopy take 2 pills at 12pm and 2 pills at 5pm. Discontinued Reason: Doctor's Order 20 mg (4 x 5 mg) PO ONCE 1 day 4 tabs 0RF Coding Level of Care Code Est Pt Level 3 (98080) Diagnoses Gastrointestinal multiple polyposis syndrome D12.6 GERD with esophagitis K21.00 Chronic idiopathic constipation K59.04
[2024-03-27 10:54] VITALS: BP 127/59; PULSE 66; BMI 28.8
== END 2024-03-27 11:53 | disposition home or self-care (01) ==
PROVIDERS: PCP Student in an Organized Health Care Education/Training Program; Visit Provider Nurse Practitioner
DX: D12.6 Benign neoplasm of colon, unspecified (principal); K21.00 Gastro-esophageal reflux disease with esophagitis, without bleeding; K59.04 Chronic idiopathic constipation
CPT/HCPCS: 99213

== ENCOUNTER → 2024-03-27 10:46 | Outpatient (BNVA) | payer MEDICAID, SELFPAY | PROVIDERS: PCP Student in an Organized Health Care Education/Training Program; Visit Provider Nurse Practitioner | DX: K59.04 Chronic idiopathic constipation (principal); K21.00 Gastro-esophageal reflux disease with esophagitis, without bleeding; B20 Human immunodeficiency virus [HIV] disease; B18.2 Chronic viral hepatitis C; D12.6 Benign neoplasm of colon, unspecified; Z80.0 Family history of malignant neoplasm of digestive organs | CPT/HCPCS: 99212 ==

== ENCOUNTER 2024-08-04 10:22 | Outpatient (REF) | payer MEDICAID, SELFPAY ==
--- OUTSIDE RECORDS SUMMARY | 2024-08-04 11:43 | XMS_ITS | Clinical Summary ---
Author Organization [address] [facility] Address [address] [place] [address] Phone Care Team Providers Care Quality Control Expert Name Role Phone Magali Reynoso MD Primary Care Provider [phone] Allergies Active Allergy Reactions Criticality Noted Date Comments Cortisone 01/23/2024 Ibuprofen 01/23/2024 Medications oxyCODONE-acetam inophen (LYNOX) 5-300 mg per tablet Take 1 Tablet by mouth every 4 hours as needed. Active aspirin 81 mg EC tablet Take 1 tablet (81 mg total) by mouth 1 (one) time each day. Active meclizine HCl (MEDI-MECLIZINE ORAL) Take by mouth. Active clonazePAM (KlonoPIN) 0.5 mg tablet Take 1 Tablet by mouth 2 times daily as needed. Active ASCORBIC ACID, VITAMIN C, ORAL Take by mouth. Active Active Problems Problem Noted Date Diagnosed Date Acute conjunctivitis of both eyes 01/22/2024 Allergic rhinitis 01/22/2024 Asthma 01/22/2024 Chronic back pain 01/22/2024 Chronic hepatitis C 01/22/2024 GERD (gastroesophageal reflux disease) Immunodeficiency disorder 01/22/2024 Rhinosinusitis 01/22/2024 Subacute thyroiditis 01/22/2024 Noninfectious gastroenteritis and colitis 2006 Encounters Date Type Department Care Team Description 05/13/2024 10:30 AM EST Office Visit Orthopedic Surgery - [place] [address] [phone] Jelani Tay DPM Tailor's bunionette, (Primary Dx); Right foot pain; Verruca plantaris from Last 3 Months Social History Tobacco Use Types Packs/Day Years Used Date Smoking Tobacco: Never Assessed Comments Unknown Sex and Gender Information Value Date Recorded Sex Assigned at Not on file Legal Sex Female 11:38 AM EDT Gender Identity Not on file Sexual Orientation Not on file Last Filed Vital Signs Vital Sign Reading Time Taken Comments Blood Pressure - - Pulse - - Temperature - - Respiratory Rate - - Oxygen Saturation - - Inhaled Oxygen Concentration - - Weight 59.4 kg (131 lb) 05/13/2024 10:36 AM EST Height 157.5 cm (5' 2 ) 05/13/2024 10:36 AM EST Body Mass Index 23.96 05/13/2024 10:36 AM EST Plan of Treatment Upcoming Encounters Date Type Department Care Team (Late st Contact Info) Description 09/10/2024 9:45 AM EDT Office Visit Orthopedic Surgery - [place] [id number] [phone] Jelani Tay, DPM [address] [address] Health Maintenance Due Date Last Done Comments Breast Cancer Screening 1963 Diabetes: Annual Foot Exam 1973 Diabetes: Annual Retina Eye Exam 1973 Cervical Cancer Screening: Pap Smear 01/10/1984 Diabetes: Annual GFR (Glomerular Filtration Rate) 02/22/2008 02/21/2007 Zoster Vaccines (1 of 2) 2013 Pneumococcal Vaccine: 50+ Years (2 of 2 - PCV) 11/22/2019 11/21/2018 Pneumococcal Vaccine: Pediatrics (0 to 5 Years) and At-Risk Patients (6 to 64 Years) (2 of 2 - PCV) 11/22/2019 11/21/2018 Hepatitis B Vaccines (1 of 3 - Risk 3-dose series) 2023 RSV Immunization Patients 60+ Years Old (1 - Risk 60-74 years 1-dose series) 2023 COVID-19 Vaccine ( - season) 2024 06/20/2021, 05/19/2021 Cholesterol Screening (Lipid Panel) 03/06/2024 Colorectal Cancer Screening: Colonoscopy 03/06/2024 Depression Screening 03/06/2024 HIV Screening 03/06/2024 Hepatitis C Screening 03/06/2024 Social Influencers of Health Screening 03/06/2024 Diabetes: Annual Urine Albumin-Creatinine Ratio (uACR) 04/09/2024 Diabetes: Blood Sugar Control Test (HGBA1C) 04/09/2024 DTaP,Tdap,and Td Vaccines (2 - Td or Tdap) 10/11/2033 10/12/2023 Meningococcal ACWY Vaccine Aged Out 11/21/2018 N o longer eligible based on patient's age to complete this topic Influenza Vaccine Completed 04/02/2024, , 03/30/2022, Additional history exists HIB Vaccines Aged Out No longer eligi ble based on patient's age to complete this topic HPV Vaccines Aged Out No longer eligi ble based on patient's age to complete this topic Hepatitis A Vaccines Aged Out No long er eligible based on patient's age to complete this topic IPV Vaccines Aged Out No longer eligi ble based on patient's age to complete this topic MMR Vaccines Aged Out No longer eligi ble based on patient's age to complete this topic Meningococcal B Vacine Aged Out No lo nger eligible based on patient's age to complete this topic RSV Immunization Patients Under 20 months Aged Out No longer eligible based on patient's age to complete this topic Varicella Vaccines Aged Out No longer eligible based on patient's age to complete this topic Procedures Procedure Name Priority Date/Time Associated Diagnosis Comments ANNUAL BMP BLOOD TEST Routine 02/21/2007 from Last 3 Months or Most Recently Relevant to Health Maintenance Results * Annual BMP Blood Test (02/21/2007) Annual BMP Blood Test abstracted Historical Provider MD HEALTH MAINTENANCE Final Result from Last 3 Months or Most Recently Relevant to Health Maintenance Insurance [place] Care Teams Quality Control Expert Relationship Specialty Start Date End Date Magali Reynoso MD [address] [place] [phone] PCP - General 12/26/23
[2024-08-04 14:24] LABS: MANUAL DIFF FLAG NO
[2024-08-04 14:44] LABS: Basophils Absolute Auto 0.1 X10*3/uL (0.0-0.2); Basophils Percent Auto 1.9 % (0-2); Eosinophils Absolute Auto 0.9 X10*3/uL (0.0-0.4); Eosinophils Percent Auto 17.6 % (0-4); Hematocrit 37.2 % (37.0-47.0); INTERNATIONAL NORM RATIO 1.2 (0.9-1.1); Lymphocytes Percent Auto 39.2 % (20-40); Mean Corpuscular HGB Conc 34.9 g/dl (31.0-35.0); Mean Corpuscular Hemoglobin 32.5 pg (27.0-33.0); Mean Platelet Volume 11.3 fL (9.4-12.3); Monocytes Absolute Auto 0.5 X10*3/uL (0.1-1.2); Neutrophils Absolute Auto 1.6 x10*3/uL (2.0-8.3); Neutrophils Percent Auto 31.3 % (45-73); Prothrombin Time 13.5 SEC (10.9-12.4); Red Cell Distribution Width 13.2 % (11.0-16.0); White Blood Count 5.2 X10*3/uL (4.8-10.8)
[2024-08-04 14:45] LABS: Platelet Count 63 X10*3/uL (160-400)
[2024-08-04 14:57] LABS: Alanine Aminotransferase 42 U/L (0-31); Albumin Level 2.9 g/dL (3.5-5.0); Alkaline Phosphatase 173 U/L (39-117); Anion Gap 7 (12-20); Aspartate Amino Transferase 69 U/L (5-31); Blood Urea Nitrogen 8 mg/dL (9-16); Calcium 8.6 mg/dL (8.4-10.2); Carbon Dioxide 25 mmol/L (22-29); Chloride 113 mmol/L (96-108); Estimated Glomerular Filt Rate > 60; Glucose Random 116 mg/dL (60-115); Potassium 3.7 mmol/L (3.3-5.1); Sodium 141 mmol/L (135-145)
[2024-08-05 08:09] LABS: Syphilis Screen Nonreactive (Nonreactive)
[2024-08-05 12:28] LABS: HCV RNA PCR Qn 5.72 Log IU/mL (NOT DETECTED); HCV RNA PCR Qn 525000 IU/mL (NOT DETECTED)
[2024-08-06 15:33] LABS: HIV RNA PCR Qn Copies 968 copies/mL (NOT DETECTED); HIV RNA PCR Qn Log Copies 2.99 (NOT DETECTED)
[2024-08-07 14:08] LABS: TS Negative Control Passed; TS Panel A 0; TS Panel B 0; TS Positive Control Passed; TSpotTB Negative (Negative)
[2024-08-09 15:08] LABS: Absolute CD3 Count 1307 cells/uL (840-3060); Absolute CD4 Count 997 cells/uL (490-1740); Absolute CD8 Count 301 cells/uL (180-1170); Absolute Lymphocytes 2072 cells/uL (850-3900); CD4 CD8 Ratio 3.32 (0.86-5.00); Percent CD3 Cells 63 % (57-85); Percent CD4 Cells 48 % (30-61); Percent CD8 Cells 15 % (12-42)
[2024-08-09 15:49] LABS: HCV Genotype LiPA 3
== END 2024-08-04 10:23 | disposition home or self-care (01) ==
LOC: HO.CHCLDS 10:22
PROVIDERS: Visit Provider Internal Medicine
DX: B18.2 Chronic viral hepatitis C (principal); Z21 Asymptomatic human immunodeficiency virus [HIV] infection status
CPT/HCPCS: 36415; 80053; 85025; 85610; 86359; 86360; 86481; 86780; 87522; 87536; 87902

== ENCOUNTER 2024-09-24 10:05 | Outpatient (AMB) | payer MEDICAID, SELFPAY ==
[2024-09-24 10:07] VITALS: BP 128/61; PULSE 76; O2SAT 97; BMI 28.9
--- NOTE | 2024-09-24 10:07 | MHC.OFFVIS ---
Vital Signs 09/24/24 10:07 Height 5 ft 2 in Weight 157 lb 13.616 oz BMI 28.9 BP 128/61 Blood Pressure Location Lt brachial Position Sitting Pulse 76 Pulse Source Pulse Oximeter Pulse Oximetry (%) 97 Oxygen Delivery Method Room Air Intake Visit Reasons: 6 mnth follow up Intake Note: Pt presents to the office today for a 6 month follow up. Allergies ibuprofen [From Motrin] Allergy (Intermediate, Verified 09/24/24 10:13) RASH Sulfa (Sulfonamide Antibiotics) Allergy (Intermediate, Verified 09/24/24 10:13) RASH HPI HPI 6 mnth follow up: Details: Assessment & Plan (1) Gastrointestinal multiple polyposis syndrome: Comment: 2023 scope= 7 or 8 polyps repeat in 1 year Code(s): D12.6 - Benign neoplasm of colon, unspecified Category: Medical (2) GERD with esophagitis: Comment: 2018 EGD showed small sliding HH, foreshortened esophagus, alot of pharyngeal tissue Code(s): K21.00 - Gastro-esophageal reflux disease with esophagitis, without bleeding Category: Medical (3) Chronic idiopathic constipation: Code(s): K59.04 - Chronic idiopathic constipation Category: Medical Plan [place] #[place] The procedures to be repeated in 1 year. The procedure was well tolerated. The results were explained and the patient is agreeable to the follow-up interval as stated. The bowel pattern has returned to normal. Education was provided to tell any 1st degree relatives about their findings to be sure that they are screened by age 45. Educated that they will be put on a recall list when it is time for their repeat scope but should they move out of state or away from the hospital they will need to remember along with their primary to repeat the procedure in a timely fashion to avoid any adverse complications. She continues on her Dexilant, dulcolax prn and colace. She feels this is working well for her. Return office visit in 6 months Orders: Orders Colonoscopy - GI Use Only 03/27/24 D12.6 - Benign neoplasm of colon, unspecified Medications: Refilled dexlansoprazole (Dexilant) 60 mg PO DAILY 90 caps 3RF 90 days bisacodyl (Dulcolax (bisacodyl)) 10 mg (2 x 5 mg) PO BEDTIME 60 tabs 6RF 30 days K59.04 - Chronic idiopathic constipation docusate sodium 100 mg PO DAILY 90 caps 0RF Discontinued peg 3350-electrolytes 236-22.74-6.74 -5.86 gram until fecal effluent is clear; do not exceed a total volume of 2,000 mL Discontinued Reason: Patient Completed Course 240 mL PO Q10M 1 day 4,000 mL 0RF Z12.11 - Encounter for screening for malignant neoplasm of colon bisacodyl the day before colonoscopy take 2 pills at 12pm and 2 pills at 5pm. Discontinued Reason: Doctor's Order 20 mg (4 x 5 mg) PO ONCE 1 day 4 tabs 0RF Laboratory Tests 08/04/24 10:25 WBC 5.2 Hgb 13.0 Hct 37.2 Plt Count 63 L Estimated GFR > 60 Total Bilirubin 2.0 H AST 69 H ALT 42 H Alkaline Phosphatase 173 H Albumin 2.9 L CORRESPONDENCE On 05/19/24 @ 14:27 Myrtle Pardo Wrote To AcCristina FYI - US finally read as cirrhosis. HCV genotype 3 pos, as per labs. Let me know if I can help out in any way. Thanks On 03/27/24 @ 15:15 Myrtle Pardo Wrote To Cristina Shen - Repeat EGD to assess for healing of esophagitis as noted in procedure note. - I didnt see cirrhosis on her problem list in the documentation. Pt also was not aware so wanted to make sure we were all on the same page. - I can not locate any ID notes in our EMR. - On my end appears to have a follow up with you August 2024 but I agree, if she is scheduled with me instead that should be corrected. Sent a msg to OA. Bottomline - has HCV cirrhosis. Should be treated unless has any contraindications. She will also need usual cirrhosis care such as US Abd for HCC screening (took the liberty to order one when I saw her), EGD for variceal screening etc. If she is hesitant/resistant to pursue above, can be documented and reinforced at future visits if she changes her mind. Hope this helps! Feel free to reach out if you have any additional concerns. On 03/27/24 @ 11:27 Ac,August Wrote To Myrtle Pardo Just saw this pt today, I was unaware of her rescheduled EGD in Jun and she is asking why this is happening...also, she is scheduled to see you in July although she has usually followed with me. She IS a cirrhosis pt, but is co-infected with HIV and Hep C and is managed by Dr. Hill in [place]....so I don't know why/what your role is in this. Are you considering referring her to [facility]? The patient's have many questions and is frustrated about having so many doctors and medications and confusion. While I don't mind sharing, this is a stubborn [place] lady who is experiencing some, um, healthcare fatigue for lack of a better explanation. She feels that she is feeling well and wants to simplify her appointments and procedures. She is not even committed to showing up for her repeat EGD in June. I want to help her get to the appts/procedures that are completely necessary (like the 1 year colonoscopy r/t multiple polyps) as this will take some selling by me. She has rapport with me and I want to be prepared to guide her properly. Please advise. TODAY'S VISIT [place] # FAMILY MEMBER TRANSLATES PER patient request I spend time discussing her Hep C/HIV coinfection as she now has profound thrombocytopenia, and her liver profile is worsening. The patient is quite confused because she is getting different information, per her view, from different providers. I understand this is confusing especially since she is asymptomatic but the liver tends to be 1 of those organs that does not give warning before it fails. I would certainly like to see if this can be addressed the best protect her future health. She seems to think that her HIV is being treated by Dr. Hill so I have sent her a tiger text to see if we can clarify the situation. She also sees Dr. Reynoso at [facility]. Her recent blood work is just a couple months ago and this is what I am basing my concerns from. I want her back 3 weeks so I can give her an update about getting level of the providers on the same page. She is agreeable to her repeat colonoscopy and it is possible that her multiple polyposis is related to her co infections and immune status. She is doing well on her Dexilant for GERD in her constipation seems to have resolved. Her asthma is well controlled and she denies any cardiac problems. She is HIV and hepatitis-C coinfection and currently on anti-retroviral therapy for the HIV but to my knowledge is not being treated for hepatitis-C. There are no prior problems with anesthesia or sedation. Again she has multiple polyposis syndrome. Having up to 8 TA is in her last colonoscopy. [facility] Medical History (Updated 09/24/24 @ 10:52 by ARNAV Lindsey) Abdominal pain Dysphagia Dysphagia Chronic idiopathic constipation HIV (human immunodeficiency virus infection) Chronic hepatitis C GERD with esophagitis Surgical History Hx of section Hx of colonoscopy History of esophagogastroduodenoscopy (EGD) Hx of cholecystectomy Hx of appendectomy Family History Father No problems noted. Mother No problems noted. Social History Alcohol intake: current Alcohol intake frequency: does not drink Patient Tobacco Use Status: Never used Tobacco Review of Systems Const Denies fatigue, Denies fever(s), Denies night sweats, Denies poor appetite, Reports weight gain and Denies weight loss Eyes Details: glasses Reports requires corrective lenses ENT Reports Normal hearing present, Denies dental pain, Denies dysphagia, Denies hearing loss, Denies mouth pain, Denies odynophagia, Denies throat swelling, Denies tongue swelling and Reports other (Dentition adequate) Card Reports no additional complaints Resp Reports no additional complaints GI Details: Denies abdominal pain, Denies melena, Denies bloating, Denies hematochezia, Denies constipation, Denies GI cramping, Denies dysphagia, Denies excessive flatus, Denies early satiety, Reports heartburn, Denies diarrhea, Denies nausea, Denies odynophagia, Denies vomiting and Denies hematemesis Musc Reports back pain, Reports myalgias and Reports arthralgias Skin/Breast Denies pruritus, Denies lesions, Denies rash and Denies jaundice Neuro Reports Normal hearing present and Denies Abnormal speech present Endo Denies fatigue Aller/Immun Denies throat swelling and Denies tongue swelling Physical Exam Const General: cooperative, no acute distress, well developed and well groomed Nutritional Appearance: well nourished and obese Orientation/consciousness: oriented to person, oriented to place and oriented to time Limitations: language barrier and other limitations (Educational limitations) HEENT Head: Yes normocephalic and Yes atraumatic Eyes General: appearance normal, both eyes and all related structures Pupils: Equal, round and reactive pupils present Neck Neck: Yes normal visual inspection and Yes no lymphadenopathy Thyroid: Thyroid normal Resp Effort & Inspection: normal respiratory effort and able to speak in complete sentences Auscultation: clear to auscultation bilaterally Cardio Rate: regular rate Rhythm: regular rhythm Heart sounds: Normal, physiologic split S2 sound present Peripheral pulses: radial pulses present and posterior tibial pulses present GI Inspection: No distended, Yes Abdominal panniculus present and Yes obesity Palpation (GI): Soft to palpation, nontender, no guarding, not rigid and No hepatosplenomegaly present Percussion: Yes normal to percussion Auscultation: normal bowel sounds Rectal Exam - Female: deferred Skin General skin exam: no rashes or lesions noted, turgor normal, skin not dry, no jaundice, No spider nevi and no striae Rashes: no rashes Nails: normal Neuro General: oriented to person, oriented to place and oriented to time Cranial nerves: Yes Equal, round and reactive pupils present and Yes Normal hearing present Speech: No Abnormal speech present Extrem General: Yes normal to inspection, No clubbing, No cyanosis, Yes edema (+1 pitting kup to knees) and Yes venous stasis dermatitis Psych Appearance: grossly normal and well kempt Mental Status: mental status grossly normal Speech and movement: Normal speech and movement present Affect: normal affect Attitude: cooperative Thought process: Circumstantial thought process present, not confabulating and Impoverished thought process present Thought content: Normal thought content present Insight: Limited insight present (Psych) Judgement: Limited judgement present (Psych) Assessment & Plan Assessment & Plan (1) HIV (human immunodeficiency virus infection): Comment: on antiretroviral therapy--Last CD4 count was 973-(04/06/15) Code(s): B20 - Human immunodeficiency virus [HIV] disease Category: Medical (2) Chronic hepatitis C: Code(s): B18.2 - Chronic viral hepatitis C Category: Medical (3) Chronic idiopathic constipation: Code(s): K59.04 - Chronic idiopathic constipation Category: Medical (4) GERD with esophagitis: Comment: 2018 EGD showed small sliding HH, foreshortened esophagus, alot of pharyngeal tissue Code(s): K21.00 - Gastro-esophageal reflux disease with esophagitis, without bleeding Category: Medical (5) Gastrointestinal multiple polyposis syndrome: Comment: 2023 scope= 7 or 8 polyps repeat in 1 year Code(s): D12.6 - Benign neoplasm of colon, unspecified Category: Medical (6) Family history of colon cancer: Comment: sister age 45 survived a 2nd sister has a history of polyps as well, 2020 scope repeat 3 years Code(s): Z80.0 - Family history of malignant neoplasm of digestive organs Category: Medical (7) Thrombocytopenia: Code(s): D69.6 - Thrombocytopenia, unspecified Category: Medical (8) Chronic, continuous use of opioids: Comment: on rx oxycodone Code(s): F11.90 - Opioid use, unspecified, uncomplicated Category: Medical (9) Pre-op examination: Code(s): Z01.818 - Encounter for other preprocedural examination Category: Medical Plan [place] # FAMILY MEMBER TRANSLATES PER patient request I spend time discussing her Hep C/HIV coinfection as she now has profound thrombocytopenia, and her liver profile is worsening. The patient is quite confused because she is getting different information, per her view, from different providers. I understand this is confusing especially since she is asymptomatic but the liver tends to be 1 of those organs that does not give warning before it fails. I would certainly like to see if this can be addressed the best protect her future health. She seems to think that her HIV is being treated by Dr. Hill so I have sent her a tiger text to see if we can clarify the situation. She also sees Dr. Reynoso at [facility]. Her recent blood work is just a couple months ago and this is what I am basing my concerns from. I want her back 3 weeks so I can give her an update about getting level of the providers on the same page. She is agreeable to her repeat colonoscopy and it is possible that her multiple polyposis is related to her co infections and immune status. She is doing well on her Dexilant for GERD in her constipation seems to have resolved. Her asthma is well controlled and she denies any cardiac problems. She is HIV and hepatitis-C coinfection and currently on anti-retroviral therapy for the HIV but to my knowledge is not being treated for hepatitis-C. There are no prior problems with anesthesia or sedation. Again she has multiple polyposis syndrome. Having up to 8 TA is in her last colonoscopy. Orders: Orders Colonoscopy - GI Use Only Today B20 - Human immunodeficiency virus [HIV] disease, D12.6 - Benign neoplasm of colon, unspecified, Z80.0 - Family history of malignant neoplasm of digestive organs Medications: New bisacodyl (Dulcolax (bisacodyl)) 10 mg (2 x 5 mg) PO BEDTIME 2 days 4 tabs 0RF peg 3350-electrolytes 236-22.74-6.74 -5.86 gram (Golytely) until fecal effluent is clear; do not exceed a total volume of 2,000 mL 240 mL PO Q10M 1 day 4,000 mL 0RF Z12.11 - Encounter for screening for malignant neoplasm of colon Coding Level of Care Code Est Pt Level 4 (23224) Diagnoses HIV (human immunodeficiency virus infection) B20 Chronic hepatitis C B18.2 Chronic idiopathic constipation K59.04 GERD with esophagitis K21.00 Gastrointestinal multiple polyposis syndrome D12.6 Family history of colon cancer Z80.0 Thrombocytopenia D69.6 Chronic, continuous use of opioids F11.90 Pre-op examination Z01.818 Time Spent (min) 38
--- OUTSIDE RECORDS SUMMARY | 2024-09-24 11:06 | XMS_ITS | Clinical Summary ---
Author Organization [address] [facility] Address [address] [place] [address] Phone Care Team Providers Care Accountant Budget Name Role Phone Magali Reynoso MD Primary Care Provider [phone] Allergies Active Allergy Reactions Criticality Noted Date [...] Chronic back pain 01/22/2024 Chronic hepatitis C ([facility]/HCC V24, [facility] V28) 0 01/22/2024 GERD (gastroesophageal reflux disease) Immunodeficiency disorder ([facility] V24) 01/22/20 24 Rhinosinusitis 01/22/2024 Subacute thyroiditis 01/22/2024 Noninfectious gastroenteritis and colitis 2006 Social History Tobacco Use Types Packs/Day Years [...] 05/13/2024 10:36 AM EST Plan of Treatment Health Maintenance Due Date Last Done Comments [...] - Risk 3-dose series) 2023 RSV Immunization Adult Patients (1 - Risk 60-74 years 1-dose series) 2023 COVID-19 Vaccine (3 - season) 2024 06/20/2021, 05/19/2021 Cholesterol Screening [...] age to complete this topic Meningococcal B Vaccine Aged Out No l onger eligible based on patient's age to complete [...] Test (02/21/2007) Annual BMP Blood Test abstracted us Historical Provider HEALTH MAINTENANCE Final Result from Last 3 Months or Most Recently Relevant to Health Maintenance Insurance MEDICAID - [place] Care Teams Accountant Budget Relationship Specialty Start Date End Date Magali Reynoso MD [address] [place] [phone] PCP - General 12/26/23
== END 2024-09-24 10:56 | disposition home or self-care (01) ==
LOC: HO.HGI 10:05
PROVIDERS: PCP Student in an Organized Health Care Education/Training Program; Visit Provider Nurse Practitioner
DX: B18.2 Chronic viral hepatitis C (principal); K59.04 Chronic idiopathic constipation; K21.00 Gastro-esophageal reflux disease with esophagitis, without bleeding; Z86.0100 Personal history of colon polyps, unspecified; Z80.0 Family history of malignant neoplasm of digestive organs; D69.6 Thrombocytopenia, unspecified; F11.90 Opioid use, unspecified, uncomplicated; Z01.818 Encounter for other preprocedural examination
CPT/HCPCS: 99214

== ENCOUNTER → 2024-09-24 10:05 | Outpatient (BNVA) | payer MEDICAID, SELFPAY | PROVIDERS: PCP Student in an Organized Health Care Education/Training Program; Visit Provider Nurse Practitioner | DX: Z01.818 Encounter for other preprocedural examination (principal); D69.6 Thrombocytopenia, unspecified; B18.2 Chronic viral hepatitis C; B20 Human immunodeficiency virus [HIV] disease; K59.04 Chronic idiopathic constipation; K21.00 Gastro-esophageal reflux disease with esophagitis, without bleeding; D12.6 Benign neoplasm of colon, unspecified; F11.20 Opioid dependence, uncomplicated; Z80.0 Family history of malignant neoplasm of digestive organs | CPT/HCPCS: 99212 ==

== ENCOUNTER 2024-10-22 10:01 | Outpatient (REF) | payer MEDICAID, SELFPAY ==
--- NOTE | ~2024-10-22 | US_ITS ---
CLINICAL HISTORY: B18.2 - Chronic viral hepatitis C US abdomen complete Comparison: US/[place]/SR - US ABDOMEN COMPLETE - 03/21/24 11:52 EDT Findings: The visualized pancreas is normal. The aorta and inferior vena cava are normal caliber. The liver is small measuring 9 cm in length. There is coarsening of liver echotexture and irregularity of the liver cortex. There is no intrahepatic bile duct dilatation. The common duct is 2 mm in diameter. Status post cholecystectomy. The main portal vein is antegrade. The right kidney is 9.1 cm in length. There is a 9 mm simple appearing cyst within the upper pole of the right kidney. The left kidney is 8.9 cm in length. The spleen is borderline in size, measuring 13.2 cm in length. No ascites. IMPRESSION: 1. There are changes of liver cirrhosis. This document has been electronically signed by: Michaelle Harman MD on 10/22/2024 13:30:51
== END 2024-10-22 10:02 | disposition home or self-care (01) ==
LOC: HO.HMGCX 10:01
PROVIDERS: PCP Student in an Organized Health Care Education/Training Program; Visit Provider Nurse Practitioner
DX: B18.2 Chronic viral hepatitis C (principal); B20 Human immunodeficiency virus [HIV] disease
CPT/HCPCS: 76700

== ENCOUNTER → 2024-10-22 10:10 | Outpatient (BNV) | payer MEDICAID, SELFPAY | PROVIDERS: PCP Student in an Organized Health Care Education/Training Program; Visit Provider Radiology Diagnostic Radiology | DX: K74.69 Other cirrhosis of liver (principal); B18.2 Chronic viral hepatitis C; N28.1 Cyst of kidney, acquired; Z90.49 Acquired absence of other specified parts of digestive tract | CPT/HCPCS: 76700 ==

== ENCOUNTER 2024-10-28 10:35 | Outpatient (REF) | payer MEDICAID, SELFPAY ==
--- OUTSIDE RECORDS SUMMARY | 2024-10-28 12:13 | XMS_ITS | Clinical Summary ---
Author Organization [address] [facility] Address [address] [place] [address] Phone Care Team Providers Care Engineering Program Manager Name Role Phone Magali Reynoso MD Primary Care Provider Allergies Active Allergy Reactions Criticality Noted Date [...] Chronic back pain 01/22/2024 Chronic hepatitis C ([facility]/HCC V24, [facility]/HCC V28) 0 01/22/2024 GERD (gastroesophageal reflux disease) Immunodeficiency disorder ([facility] V24) 01/22/20 24 Rhinosinusitis 01/22/2024 Subacute thyroiditis [...] Maintenance Insurance MEDICA[place] - [place] Care Teams Engineering Program Manager Relationship Specialty Start Date End Date Magali Reynoso MD [address] [place] [phone] PCP - General 12/26/23
[2024-10-28 15:05] LABS: INTERNATIONAL NORM RATIO 1.1 (0.9-1.1); Prothrombin Time 13.1 SEC (10.9-12.4)
[2024-10-28 16:54] LABS: Alanine Aminotransferase 30 U/L (0-31); Albumin Level 2.9 g/dL (3.5-5.0); Anion Gap 7 (12-20); Aspartate Amino Transferase 56 U/L (5-31); Bilirubin Direct 0.5 mg/dL (0.0-0.5); Bilirubin Total 1.6 mg/dL (0.0-1.0); Blood Urea Nitrogen 9 mg/dL (9-16); Calcium 8.9 mg/dL (8.4-10.2); Carbon Dioxide 26 mmol/L (22-29); Chloride 110 mmol/L (96-108); Cholesterol 156 mg/dL (<200); Estimated Glomerular Filt Rate 54; Glucose Random 245 mg/dL (60-115); HDL Cholesterol 38 mg/dL (>40); LDL Cholesterol Calculated 68 mg/dL (<100); Potassium 3.9 mmol/L (3.3-5.1); Sodium 139 mmol/L (135-145); Total Protein 6.8 g/dL (6.5-8.0); Triglycerides 252 mg/dL (<150)
[2024-10-28 17:13] LABS: Alkaline Phosphatase 242 U/L (39-117)
[2024-10-29 12:33] LABS: HCV RNA PCR Qn 1320000 IU/mL (NOT DETECTED)
[2024-10-30 05:58] LABS: HIV AB/AG Reactive (Nonreactive)
[2024-11-05 00:49] LABS: FIB-ALT 26 U/L (6-29); FIB-Alpha-2-Macroglobulin 335 mg/dL (106-279); FIB-Apolipoprotein A1 163 mg/dL (101-198); FIB-GGT 19 U/L (3-65); FIB-Haptoglobin <8 mg/dL (43-212); FIB-Total Bilirubin 1.1 mg/dL (0.2-1.2); Liver Fibrosis Score 0.83; Liver Fibrosis Stage F4; Nec Inflam Act Grade A0-A1; Nec Inflam Act Score 0.23
[2024-11-06 19:53] LABS: HIV 1 Antibody POSITIVE (NEGATIVE); HIV 2 Antibody NEGATIVE (NEGATIVE)
[2024-11-07 23:43] LABS: Hepatitis C Genotype 3 (Not Detected)
== END 2024-10-28 10:36 | disposition home or self-care (01) ==
LOC: HO.CHCLDS 10:35
PROVIDERS: Visit Provider Student in an Organized Health Care Education/Training Program
DX: B18.2 Chronic viral hepatitis C (principal); Z21 Asymptomatic human immunodeficiency virus [HIV] infection status
CPT/HCPCS: 36415; 80048; 80061; 80076; 81596; 85610; 86701; 86702; 87389; 87522; 87902

== ENCOUNTER 2024-11-13 10:59 | Outpatient (REF) | payer MEDICAID, SELFPAY ==
--- OUTSIDE RECORDS SUMMARY | 2024-11-13 12:34 | XMS_ITS | Clinical Summary ---
Author Organization [address] [facility] Address [address] [place] [address] Phone Care Team Providers Care Internet Manager Name Role Phone Magali Reynoso MD Primary Care Provider [phone] Allergies Active Allergy Reactions Criticality Noted Date [...] Chronic back pain 01/22/2024 Chronic hepatitis C ([facility]/HCC V24, [facility]/HCC V28) 0 01/22/2024 GERD (gastroesophageal reflux disease) Immunodeficiency disorder ([facility] V24) 01/22/20 24 Rhinosinusitis 01/22/2024 [...] Maintenance Insurance [place] - [place] Care Teams Internet Manager Relationship Specialty Start Date End Date Magali Reynoso MD [address] [place] [phone] PCP - General 12/26/23
[2024-11-17 08:43] LABS: HCV RNA PCR Qn 5.85 Log IU/mL (NOT DETECTED); HCV RNA PCR Qn 708000 IU/mL (NOT DETECTED)
[2024-11-20 11:33] LABS: HCV Genotype LiPA 3 (Not Detected)
[2024-11-24 15:17] LABS: FIB-ALT 26 U/L (6-29); FIB-Alpha-2-Macroglobulin 299 mg/dL (106-279); FIB-Apolipoprotein A1 141 mg/dL (101-198); FIB-GGT 18 U/L (3-65); FIB-Haptoglobin <8 mg/dL (43-212); FIB-Total Bilirubin 0.9 mg/dL (0.2-1.2); Liver Fibrosis Score 0.81; Liver Fibrosis Stage F4; Nec Inflam Act Grade A0-A1; Nec Inflam Act Score 0.23
== END 2024-11-13 11:00 | disposition home or self-care (01) ==
LOC: HO.HMGCLDS 10:59
PROVIDERS: PCP Student in an Organized Health Care Education/Training Program; Visit Provider Nurse Practitioner
DX: B20 Human immunodeficiency virus [HIV] disease (principal); B18.2 Chronic viral hepatitis C
CPT/HCPCS: 36415; 81596; 87522; 87902

== ENCOUNTER 2024-11-20 13:55 | Outpatient (AMB) | payer MEDICAID, SELFPAY ==
--- NOTE | 2024-11-20 13:56 | MHC.OFFVIS ---
Vital Signs 11/20/24 13:57 Height 5 ft 2 in Weight 161 lb BMI 29.4 BP 100/56 L Blood Pressure Location Rt brachial Position Sitting Pulse 68 Pulse Source Pulse Oximeter Pulse Oximetry (%) 97 Oxygen Delivery Method Room Air Intake Visit Reasons: liver disease Intake Note: Est pt for mgmt of liver disease + GERD. Labs done but pending. CC; Pt denies any GI Sx or concerns at this time. Instrument And Control Technician Required: Yes Instrument And Control Technician Services: Instrument And Control Technician Offered & Declined Accompanied by: Spouse Allergies ibuprofen (From Motrin) Allergy (Intermediate, Verified 11/20/24 13:58) RASH Sulfa (Sulfonamide Antibiotics) Allergy (Intermediate, Verified 11/20/24 13:58) RASH HPI HPI liver disease: Details: Assessment & Plan (1) HIV (human immunodeficiency virus infection): Comment: on antiretroviral therapy--Last CD4 count was 973-(04/06/15) Code(s): B20 - Human immunodeficiency virus [HIV] disease Category: Medical (2) Chronic hepatitis C: Code(s): B18.2 - Chronic viral hepatitis C Category: Medical (3) Chronic idiopathic constipation: Code(s): K59.04 - Chronic idiopathic constipation Category: Medical (4) GERD with esophagitis: Comment: 2018 EGD showed small sliding HH, foreshortened esophagus, alot of pharyngeal tissue Code(s): K21.00 - Gastro-esophageal reflux disease with esophagitis, without bleeding Category: Medical (5) Gastrointestinal multiple polyposis syndrome: Comment: 2023 scope= 7 or 8 polyps repeat in 1 year Code(s): D12.6 - Benign neoplasm of colon, unspecified Category: Medical (6) Family history of colon cancer: Comment: sister age 45 survived a 2nd sister has a history of polyps as well, 2020 scope repeat 3 years Code(s): Z80.0 - Family history of malignant neoplasm of digestive organs Category: Medical (7) Thrombocytopenia: Code(s): D69.6 - Thrombocytopenia, unspecified Category: Medical (8) Chronic, continuous use of opioids: Comment: on rx oxycodone Code(s): F11.90 - Opioid use, unspecified, uncomplicated Category: Medical (9) Pre-op examination: Code(s): Z01.818 - Encounter for other preprocedural examination Category: Medical Plan Brazilian # FAMILY MEMBER TRANSLATES PER patient request I spend time discussing her Hep C/HIV coinfection as she now has profound thrombocytopenia, and her liver profile is worsening. The patient is quite confused because she is getting different information, per her view, from different providers. I understand this is confusing especially since she is asymptomatic but the liver tends to be 1 of those organs that does not give warning before it fails. I would certainly like to see if this can be addressed the best protect her future health. She seems to think that her HIV is being treated by Dr. Hill so I have sent her a tiger text to see if we can clarify the situation. She also sees Dr. Reynoso at [facility]. Her recent blood work is just a couple months ago and this is what I am basing my concerns from. I want her back 3 weeks so I can give her an update about getting level of the providers on the same page. She is agreeable to her repeat colonoscopy and it is possible that her multiple polyposis is related to her co infections and immune status. She is doing well on her Dexilant for GERD in her constipation seems to have resolved. Her asthma is well controlled and she denies any cardiac problems. She is HIV and hepatitis-C coinfection and currently on anti-retroviral therapy for the HIV but to my knowledge is not being treated for hepatitis-C. There are no prior problems with anesthesia or sedation. Again she has multiple polyposis syndrome. Having up to 8 TA is in her last colonoscopy. Orders: Orders Colonoscopy - GI Use Only Today B20 - Human immunodeficiency virus [HIV] disease, D12.6 - Benign neoplasm of colon, unspecified, Z80.0 - Family history of malignant neoplasm of digestive organs Medications: New bisacodyl (Dulcolax (bisacodyl)) 10 mg (2 x 5 mg) PO BEDTIME 2 days 4 tabs 0RF peg 3350-electrolytes 236-22.74-6.74 -5.86 gram (Golytely) until fecal effluent is clear; do not exceed a total volume of 2,000 mL 240 mL PO Q10M 1 day 4,000 mL 0RF Z12.11 - Encounter for screening for malignant neoplasm Laboratory Tests 08/04/24 10/28/24 11/13/24 10:25 10:36 11:05 Plt Count 63 L Total Bilirubin 1.6 H Direct Bilirubin 0.5 AST 56 H ALT 30 Alkaline Phosphatase 242 H Liver Fibrosis Stage F4 HCV RNA Genotype LiPA 3 HCV RNA (PCR) IUs/ml 820480 H HCV RNA PCR log IUs/ml 5.85 H COLONOSCOPY BIOPSY TODAY'S VISIT Brazilian # translates per patient request She is doing well on her Dexilant for GERD in her constipation seems to have resolved. I explain the findings and that she has stage 4 liver disease and given her platelets and her other liver functions she may have limited time before she decompensates and has end stage liver failure. I let her know that I reached out to Dr. Dr. Hill's office and they agreed that they would need to be the ones to treat her due to the co infected HIV. They have offered to do so and the patient has an appointment with them next week. I let her know that I will not bother her about this after this appointment, I certainly am open to answering questions for her but I will leave the treatment decision between her and Dr. Hill. I simply want to make sure there has been no miscommunication due to language or cultural barriers about the importance of treating her now while her liver is still stable to preserve her ongoing health. She and her are able to repeat verbalize understanding at this point. She continues to do well on her Dexilant and her constipation does not seem to have return. Return office visit in 6 months [facility] Medical History Abdominal pain Dysphagia Dysphagia Chronic idiopathic constipation HIV (human immunodeficiency virus infection) Chronic hepatitis C GERD with esophagitis Surgical History Hx of section Hx of colonoscopy History of esophagogastroduodenoscopy (EGD) Hx of cholecystectomy Hx of appendectomy Family History Father No problems noted. Mother No problems noted. Social History Alcohol intake: current Alcohol intake frequency: does not drink Patient Tobacco Use Status: Never used Tobacco Review of Systems Const Denies fatigue, Denies fever(s), Denies night sweats, Denies poor appetite and Denies weight loss ENT Reports Normal hearing present, Denies dental pain, Denies dysphagia, Denies hearing loss, Denies mouth pain, Denies odynophagia, Denies throat swelling, Denies tongue swelling and Reports other (Dentition adequate) Card Reports no additional complaints Resp Reports no additional complaints GI Details: Denies abdominal pain, Denies melena, Denies bloating, Denies hematochezia, Denies constipation, Denies GI cramping, Denies dysphagia, Denies excessive flatus, Denies early satiety, Reports heartburn, Denies diarrhea, Denies nausea, Denies odynophagia, Denies vomiting and Denies hematemesis Skin/Breast Denies pruritus, Denies lesions, Denies rash and Denies jaundice Neuro Reports Normal hearing present and Denies Abnormal speech present Endo Denies fatigue Aller/Immun Denies throat swelling and Denies tongue swelling Physical Exam Vital Signs: Last Vital Signs Pulse 68 11/20/24 13:57 BP 100/56 L 11/20/24 13:57 Pulse Ox 97 11/20/24 13:57 Oxygen Delivery Method Room Air 11/20/24 13:57 BMI result Body Mass Index 29.4 Const General: cooperative, no acute distress, well developed and well groomed Nutritional Appearance: well nourished and obese Orientation/consciousness: oriented to person, oriented to place and oriented to time Limitations: language barrier and other limitations (Educational and cultural) HEENT Head: Yes normocephalic and Yes atraumatic Eyes General: appearance normal, both eyes and all related structures Pupils: Equal, round and reactive pupils present Neck Neck: Yes normal visual inspection and Yes no lymphadenopathy Thyroid: Thyroid normal Resp Effort & Inspection: normal respiratory effort and able to speak in complete sentences Auscultation: clear to auscultation bilaterally Cardio Rate: regular rate Rhythm: regular rhythm Heart sounds: Normal, physiologic split S2 sound present Peripheral pulses: radial pulses present and posterior tibial pulses present GI Inspection: No distended, Yes Abdominal panniculus present and Yes obesity Palpation (GI): Soft to palpation, nontender, no guarding, not rigid and Hepatomegaly present Percussion: Yes normal to percussion Auscultation: normal bowel sounds Rectal Exam - Female: deferred Skin General skin exam: no rashes or lesions noted, turgor normal, skin not dry, no jaundice, No spider nevi and no striae Rashes: no rashes Nails: normal Neuro General: oriented to person, oriented to place and oriented to time Cranial nerves: Yes Equal, round and reactive pupils present and Yes Normal hearing present Speech: No Abnormal speech present Extrem General: Yes normal to inspection, No clubbing, No cyanosis and No edema Psych Appearance: grossly normal and well kempt Mental Status: mental status grossly normal Speech and movement: Normal speech and movement present Affect: normal affect Attitude: cooperative Thought process: Normal thought process present and not confabulating Thought content: Normal thought content present Insight: Limited insight present (Psych) Judgement: Limited judgement present (Psych) Results Reviewed Results Reviewed: 08/04/2505/ 10:2510:3611:05Plt Count 63 LTotal Bilirubin 1.6 HDirect Bilirubin 0.5AST 56 HALT 30Alkaline Phosphatase 242 HLiver Fibrosis Stage F4HCV RNA Genotype LiPA 3HCV RNA (PCR) IUs/ml [id number] HHCV RNA PCR log IUs/ml 5.85 H Assessment & Plan Assessment & Plan (1) Chronic hepatitis C with HIV infection: Comment: 08/04/2505/ 10:2510:3611:05 Plt Count 63 L Total Bilirubin 1.6 H Direct Bilirubin 0.5 AST 56 H ALT 30 Alkaline Phosphatase 242 H Liver Fibrosis Stage F4 HCV RNA Genotype LiPA 3 HCV RNA (PCR) IUs/ml [id number] H HCV RNA PCR log IUs/ml 5.85 H ULTRASOUND OF THE ABDOMEN Comparison: US/MS/SR - US ABDOMEN COMPLETE - 03/21/24 11:52 EDT Findings: The visualized pancreas is normal. The aorta and inferior vena cava are normal caliber. The liver is small measuring 9 cm in length. There is coarsening of liver echotexture and irregularity of the liver cortex. There is no intrahepatic bile duct dilatation. The common duct is 2 mm in diameter. Status post cholecystectomy. The main portal vein is antegrade. The right kidney is 9.1 cm in length. There is a 9 mm simple appearing cyst within the upper pole of the right kidney. The left kidney is 8.9 cm in length. The spleen is borderline in size, measuring 13.2 cm in length. No ascites. IMPRESSION: 1. There are changes of liver cirrhosis. Code(s): B20 - Human immunodeficiency virus [HIV] disease; B18.2 - Chronic viral hepatitis C Category: Medical Plan Brazilian # translates per patient request She is doing well on her Dexilant for GERD in her constipation seems to have resolved. I explain the findings and that she has stage 4 liver disease and given her platelets and her other liver functions she may have limited time before she decompensates and has end stage liver failure. I let her know that I reached out to Dr. Dr. Hill's office and they agreed that they would need to be the ones to treat her due to the co infected HIV. They have offered to do so and the patient has an appointment with them next week. I let her know that I will not bother her about this after this appointment, I certainly am open to answering questions for her but I will leave the treatment decision between her and Dr. Hill. I simply want to make sure there has been no miscommunication due to language or cultural barriers about the importance of treating her now while her liver is still stable to preserve her ongoing health. She and her are able to repeat verbalize understanding at this point. She continues to do well on her Dexilant and her constipation does not seem to have return. Return office visit in 6 months Medications: Refilled dexlansoprazole (Dexilant) 60 mg PO DAILY 90 caps 3RF 90 days Coding Level of Care Code Est Pt Level 3 (51000) Diagnoses Chronic hepatitis C with HIV infection B20; B18.2
[2024-11-20 13:57] VITALS: BP 100/56; PULSE 68; O2SAT 97; BMI 29.4
--- OUTSIDE RECORDS SUMMARY | 2024-11-20 16:47 | XMS_ITS | Patient Health Record ---
[facility] Address [address] [place] [address] Care Team Providers Care Security System Analyst Name Role Phone Chris Gambino Unavailable [phone] Reason For Referral No Information Plan Of Treatment No Information
== END 2024-11-20 14:29 | disposition home or self-care (01) ==
PROVIDERS: PCP Student in an Organized Health Care Education/Training Program; Visit Provider Nurse Practitioner
DX: B20 Human immunodeficiency virus [HIV] disease (principal); B18.2 Chronic viral hepatitis C
CPT/HCPCS: 99213

== ENCOUNTER → 2024-11-20 13:55 | Outpatient (BNVA) | payer MEDICAID, SELFPAY | PROVIDERS: PCP Student in an Organized Health Care Education/Training Program; Visit Provider Nurse Practitioner | DX: B20 Human immunodeficiency virus [HIV] disease (principal); B18.2 Chronic viral hepatitis C; K21.9 Gastro-esophageal reflux disease without esophagitis | CPT/HCPCS: 99212 ==

== ENCOUNTER 2025-02-17 09:38 | Outpatient (REF) | payer MEDICAID, SELFPAY ==
--- OUTSIDE RECORDS SUMMARY | 2025-02-17 11:27 | XMS_ITS | Clinical Summary ---
Author Organization [address] [facility] Address [address] [place] [address] Phone Care Team Providers Care Regional Economic Liaison Name Role Phone Magali Reynoso MD Primary Care Provider [phone] Allergies Active Allergy Reactions Criticality Noted Date [...] Chronic back pain 01/22/2024 Chronic hepatitis C ([facility]/HCC V24, [facility]/HCC V28) 0 01/22/2024 GERD (gastroesophageal reflux disease) Immunodeficiency disorder ([facility]/HCC V24) 01/22/20 24 Rhinosinusitis 01/22/2024 Subacute thyroiditis [...] - Risk 60-74 years 1-dose series) 2023 Cholesterol Screening (Lipid Panel) 03/06/2024 Colorectal Cancer Screening: Colonoscopy 03/06/2024 HIV Screening 03/06/2024 Hepatitis C Screening 03/06/2024 Social Influencers of Health Screening 03/06/2024 Diabetes: Annual Urine Albumin-Creatinine Ratio (uACR) 04/09/2024 Diabetes: Blood Sugar Control Test (HGBA1C) 04/09/2024 Depression Screening 05/28/2024 COVID-19 Vaccine (3 - season) 2025 06/20/2021, 05/19/2021 Influenza Vaccine (#1) 2025 , 02/07/2023, 03/30/2022, Additional history exists DTaP,Tdap,and Td Vaccines (2 - Td or Tdap) 10/11/2033 10/12/2023 Meningococcal ACWY Vaccine Aged Out 11/21/2018 N o longer eligible based on patient's age to complete this topic HIB Vaccines Aged Out No longer eligi [...] Annual BMP Blood Test abstracted Historical Provider HEALTH MAINTENANCE Final Result from Last 3 Months or Most Recently Relevant to Health Maintenance Insurance MEDICAID - [place] Care Teams Regional Economic Liaison Relationship Specialty Start Date End Date Magali Reynoso MD [address] [place] [id number] PCP - General 12/26/23
--- OUTSIDE RECORDS SUMMARY | 2025-02-17 11:27 | XMS_ITS | Patient Health Record ---
Author Organization [facility] Address [address] [place] [address] Care Team Providers Care Orchestra Conductor Name Role Phone Chris Gambino Unavailable [phone] Reason For Referral No Information Plan Of Treatment No Information
[2025-02-17 14:39] LABS: Hematocrit 35.8 % (37.0-47.0); Hemoglobin 12.2 g/dl (12.0-16.0); Imm Gran Abs Auto 0.01 X10*3/uL (0.00-0.03); Imm Gran Pct Auto 0.2 % (0.0-0.4); Lymphocytes Absolute Auto 1.7 X10*3/uL (1.2-4.9); MANUAL DIFF FLAG SCAN; Mean Corpuscular HGB Conc 34.1 g/dl (31.0-35.0); Mean Corpuscular Hemoglobin 32.2 pg (27.0-33.0); Mean Corpuscular Volume 94.5 fL (80.0-98.0); NRBC Abs Auto 0.000 X10*3/uL (0.0-0.012); NRBC Pct Auto 0.0 /100WBC (0.0-0.2); Platelet Count 78 X10*3/uL (160-400); Red Blood Count 3.79 X10*6/uL (4.20-5.50); SCAN SMEAR FLAG 1; White Blood Count 5.2 X10*3/uL (4.8-10.8)
[2025-02-17 14:54] LABS: Alanine Aminotransferase 22 U/L (0-31); Albumin Level 2.9 g/dL (3.5-5.0); Alkaline Phosphatase 220 U/L (39-117); Anion Gap 8 (12-20); Aspartate Amino Transferase 40 U/L (5-31); Blood Urea Nitrogen 6 mg/dL (9-16); Calcium 8.5 mg/dL (8.4-10.2); Carbon Dioxide 24 mmol/L (22-29); Chloride 112 mmol/L (96-108); Cholesterol 189 mg/dL (<200); Estimated Glomerular Filt Rate 54; HDL Cholesterol 33 mg/dL (>40); Potassium 4.0 mmol/L (3.3-5.1); Sodium 140 mmol/L (135-145); Total Protein 6.6 g/dL (6.5-8.0); Triglycerides 379 mg/dL (<150)
[2025-02-17 15:56] LABS: Reflex LDLD? No
[2025-02-19 07:58] LABS: HIV RNA PCR Qn Copies 360 copies/mL (NOT DETECTED); HIV RNA PCR Qn Log Copies 2.56 (NOT DETECTED)
[2025-02-22 16:04] LABS: Absolute CD3 Count 1198 cells/uL (840-3060); Absolute CD8 Count 251 cells/uL (180-1170); Percent CD3 Cells 68 % (57-85); Percent CD8 Cells 14 % (12-42)
== END 2025-02-17 09:39 | disposition home or self-care (01) ==
LOC: HO.CHCLDS 09:38
PROVIDERS: Visit Provider Internal Medicine
DX: Z21 Asymptomatic human immunodeficiency virus [HIV] infection status (principal)
CPT/HCPCS: 36415; 80053; 80061; 85025; 86359; 86360; 87536

== ENCOUNTER 2025-04-10 14:47 | Inpatient (IN) | payer MEDICAID, SELFPAY ==
[2025-04-10] VITALS (7 sets, daily range): BP systolic 116–155; BP diastolic 54–83; PULSE 57–64; RESP 16–19; TEMP 36.7–36.8; O2SAT 96–98; BMI 32.1; BMI 29.3
--- NOTE | ~2025-04-10 | XR_ITS ---
EXAMINATION: XR CHEST CLINICAL INFORMATION: chest pain COMPARISON: December 24, 2018 TECHNIQUE: Frontal view of the chest was obtained. FINDINGS: The patient is rotated to the left. Cardiac contour obscures much of the left lung. There are low lung volumes and vascular crowding. Lungs are grossly clear. XR/XR chest 1V IMPRESSION: No acute disease. Electronically signed by: Micheal Mesa MD 04/10/2025 03:35 PM EST
--- NOTE | ~2025-04-10 | CT_ITS ---
EXAMINATION: CT HEAD WITHOUT CONTRAST (STROKE PROTOCOL) CLINICAL INFORMATION: Stroke protocol. Change in mental status. COMPARISON: December 25, 2017. TECHNIQUE: Contiguous axial imaging was performed from the skull base to vertex without intravenous administration of contrast. This CT examination was performed using dose optimization techniques as appropriate, variously including the following: *Automated exposure control *Adjustment of mA and/or kV according to patient size (this includes techniques or standardized protocols for targeted exams where dose is matched to indication/reason for exam; i.e. extremities or head) *Use of iterative reconstruction technique DLP: 701 mGy-cm FINDINGS: No acute intracranial hemorrhage, mass effect, midline shift, hydrocephalus or herniation. Maguire-white matter differentiation is normal. Subcortical white matter hypodensity in the right middle frontal gyrus, similar since prior exam. Posterior cranial fossa contents demonstrated no gross mass effect or acute hemorrhage. Sellar/suprasellar region demonstrated no gross abnormality. Craniocervical junction is intact with normal position of the cerebellar tonsils. No increased density in the MCA's. Dystrophic hyperdensity intraocular right eyeball with volume loss. Stable. Intraocular hyperdensity in the left eyeball. Status post intraocular lens surgery bilaterally. Probable old traumatic deformities in the nasal bones. No air-fluid levels in the paranasal sinuses. Tympanic cavities and mastoid cells are aerated. CT/CT head for STROKE IMPRESSION: No acute intracranial hemorrhage. Small vessel occlusive disease disease with likely prior stroke, right MCA distribution. This critical result was discussed with emergency physician Dr. Dov Gil at 3:08 PM hours on April 10, 2025 via [email or web address] It was ascertained that the content and urgency of the report was understood at the time of direct communication. Electronically signed by: Michael Mccall MD 04/10/2025 03:09 PM [facility]
--- NOTE | ~2025-04-10 | MR_ITS ---
CLINICAL HISTORY: ? CVA visual acuity lost left eye Exam: Nonenhanced MRI brain. Comparison: Same-day CT brain and CTA head and neck. Findings: There is no cerebral edema or mass effect. White matter reveals scattered areas of white matter T2 hyperintensity, nonspecific although possibly related to chronic microangiopathic disease. Additionally, there is minimal left frontal white matter edema (8; 17), likely along the tract of the what appears to be a developmental venous anomaly (9; 17), anatomic variant. Developmental venous anomaly is confirmed on same-day CTA head (seen on 15; 60 of the that exam). Diffusion weighted imaging reveals no restricted diffusion or MR evidence of acute ischemia. Susceptibility weighted imaging reveals no susceptibility artifact or evidence of intracranial hemorrhage. No sellar or parasellar lesions. Ventricular size and configuration are within normal limits. Cerebral cisterns are preserved. No significant signal abnormality seen within the paranasal sinuses or mastoid air cells. Preserved flow signal voids are present within visualized intracranial vasculature. 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 Impression: 1. No MR evidence of acute ischemia. 2. Mild left frontal white matter edema which appears to be along the tract of a left developmental venous anomaly. There is no evidence of venous thrombosis on same-day CTA. If further imaging evaluation is clinically warranted, consider gadolinium enhancement MRI, to determine whether there is any enhancement in this region. This document has been electronically signed by: Jerson Wilburn MD on 04/10/2025 18:21:27
--- NOTE | ~2025-04-10 | CT_ITS ---
EXAMINATION: CT ANGIOGRAM HEAD AND NECK CLINICAL INFORMATION: Aphasia, rule out stroke. COMPARISON: CT head December 25, 2017 and same day. TECHNIQUE: CT test bolus sequences and head and neck intravenous bolus administration 70mL of Omnipaque 350. Helical imaging was performed in the axial plane from the aortic arch to the skull vertex. The data was processed at the certified hyperbaric technologist's workstation for generation of MIP sequences. Angled MIPs and volume rendered reformatted images were also generated at an offline 3D workstation. Stenoses are assessed in accordance with NASCET criteria unless otherwise indicated. This CT examination was performed using dose optimization techniques as appropriate, variously including the following: *Automated exposure control *Adjustment of mA and/or kV according to patient size (this includes techniques or standardized protocols for targeted exams where dose is matched to indication/reason for exam; i.e. extremities or head) *Use of iterative reconstruction technique FINDINGS: NECK CTA: -AORTIC ARCH: Normal in caliber. Mild atheromatous calcification. Three-vessel branching pattern. -GREAT VESSEL ORIGINS: Widely patent. No stenosis. -RIGHT COMMON CAROTID ARTERY: Tortuous in course and normal caliber to the level of the bifurcation. -CERVICAL RIGHT INTERNAL CAROTID ARTERY: Normal opacification without focal stenosis or occlusion. -LEFT COMMON CAROTID ARTERY: Mildly tortuous in course and normal in caliber to the level of the bifurcation. -CERVICAL LEFT INTERNAL CAROTID ARTERY: Normal opacification without focal stenosis or occlusion. -CERVICAL RIGHT VERTEBRAL ARTERY: Small. Normal in course and caliber into the skull base. -CERVICAL LEFT VERTEBRAL ARTERY: Left dominant. Normal in course and caliber into the skull base. OTHER, SOFT TISSUES: -No lymphadenopathy or mass. No abnormal fluid collection or soft tissue swelling. -Normal thyroid. -Imaged superior mediastinal structures normal. -Imaged lung apices clear. CTA OF THE BRAIN: -INTRACRANIAL INTERNAL CAROTID ARTERIES: No focal stenosis or occlusion. -RIGHT ANTERIOR CEREBRAL ARTERY: Normal A1 segment.. Normal arborization of the distal segments. -LEFT ANTERIOR CEREBRAL ARTERY: Absent A1 segment.. Normal arborization of the distal segments. -ANTERIOR COMMUNICATING ARTERY: Normal in supply bilateral ACAs. -RIGHT MIDDLE CEREBRAL ARTERY: Normal M1 segment of the MCA without focal stenosis or occlusion. Normal bifurcation. Normal arborization of the distal segments. -LEFT MIDDLE CEREBRAL ARTERY: Normal M1 segment of the MCA without focal stenosis or occlusion. Normal bifurcation. Normal arborization of the distal segments. However, there is a blush of enhancement in the posterior left frontal lobe consistent with developmental venous anomaly. -RIGHT VERTEBRAL ARTERY V4: Normal in course and caliber. Normal PICA branch. -LEFT VERTEBRAL ARTERY V4: Normal in course and caliber. Normal PICA branch. -BASILAR ARTERY: Normal without focal stenosis or occlusion. Normal appearance of the proximal superior cerebellar arteries. Normal basilar tip. -RIGHT POSTERIOR CEREBRAL ARTERY: Normal P1 segment. Normal opacification of the distal CHEMICAL PREPARER segments. -LEFT POSTERIOR CEREBRAL ARTERY: Normal P1 segment. Normal opacification of the distal CHEMICAL PREPARER segments. -POSTERIOR COMMUNICATING ARTERIES: Threadlike Normal opacification of the superior sagittal, straight, transverse, and sigmoid sinuses. No venous thrombosis. No space-occupying hemorrhage or definite evolving infarct. CT/CT angio head neck STROKE IMPRESSION: CTA NECK: No hemodynamically significant stenosis. CTA HEAD: No hemodynamically significant stenosis or occlusion. Posterior left frontal lobe developmental venous anomaly. Dr. Gil notified via [employer] at 4:19 pm EST Electronically signed by: Micheal Mesa MD 04/10/2025 04:20 PM EST
--- NOTE | 2025-04-10 14:54 | ECG_ITS ---
Test Reason : stroke alert Blood Pressure : */* mmHG Vent. Rate : 60 BPM Atrial Rate : 60 BPM P-R Int : 184 ms QRS Dur : 86 ms QT Int : 440 ms P-R-T Axes : 21 -17 13 degrees QTcB Int : 440 ms Normal sinus rhythm Septal infarct , age undetermined Abnormal ECG When compared with ECG of 13-Mar-2006 12:26, No significant changes seen Referred By: Dov Gil Electronically Signed By: NANO LAMBERT MD
[2025-04-10 15:10] LABS: Prothrombin Time Whole Bld POC 13.4 sec (11.1-13.5); ~PT, ~INR - Anti Coag Clinic 1.1 (0.9-1.1)
[2025-04-10 15:11] LABS: Glucose, Whole Blood 130 mg/dL (60-115)
[2025-04-10 15:20] LABS: MANUAL DIFF FLAG NO
[2025-04-10 15:25] LABS: Hematocrit 36.4 % (37.0-47.0); Hemoglobin 12.7 g/dl (12.0-16.0); Imm Gran Abs Auto 0.01 X10*3/uL (0.00-0.03); Imm Gran Pct Auto 0.2 % (0.0-0.4); Lymphocytes Absolute Auto 2.0 X10*3/uL (1.2-4.9); Mean Corpuscular HGB Conc 34.9 g/dl (31.0-35.0); Mean Corpuscular Hemoglobin 32.0 pg (27.0-33.0); Mean Corpuscular Volume 91.7 fL (80.0-98.0); NRBC Abs Auto 0.000 X10*3/uL (0.0-0.012); NRBC Pct Auto 0.0 /100WBC (0.0-0.2); Red Blood Count 3.97 X10*6/uL (4.20-5.50); White Blood Count 6.4 X10*3/uL (4.8-10.8)
[2025-04-10 15:27] LABS: Platelet Count 64 X10*3/uL (160-400)
[2025-04-10 15:40] LABS: Alanine Aminotransferase 16 U/L (0-31); Albumin Level 3.3 g/dL (3.5-5.0); Alkaline Phosphatase 172 U/L (39-117); Anion Gap 9 (12-20); Aspartate Amino Transferase 37 U/L (5-31); Blood Urea Nitrogen 9 mg/dL (9-16); Calcium 9.0 mg/dL (8.4-10.2); Carbon Dioxide 24 mmol/L (22-29); Chloride 112 mmol/L (96-108); Estimated Glomerular Filt Rate 51; Potassium 3.9 mmol/L (3.3-5.1); Sodium 141 mmol/L (135-145); Total Protein 7.1 g/dL (6.5-8.0)
[2025-04-10 15:45] LABS: INTERNATIONAL NORM RATIO 1.1 (0.9-1.1); Prothrombin Time 14.0 SEC (11.2-13.5)
[2025-04-10 15:46] LABS: Troponin-I High Sensitivity < 2.7 ng/L (<3.5-17.0)
[2025-04-10 15:47] LABS: VBG HCO3 23 mmol/L (22-26); VBG O2 % Saturation 80.0 %
[2025-04-10 15:47] LABS: Venous Blood Gas Refer to POC result
--- NOTE | 2025-04-10 15:53 | ED.NEUROSD ---
HPI - Neuro Symptoms/Deficit General Chief Complaint: Stroke Stated Complaint: ? STROKE LIKE SYMPTOMS Time Seen by Provider: 04/10/25 14:52 Source: family and EMS Mode of arrival: EMS History of Present Illness HPI Narrative: This is 60 female presented to the emergency department with decreased level of consciousness and decreased vision in the left eye. Patient has a history of stroke in the past but she is able to cook she lives home. Since last night she has been more lethargic today the family call an ambulance they noted that she could not see well from the left at baseline she is blind in the right eye. The vision in the left eye has been deteriorating she was seen in [place] 2 weeks ago for that but they were told no surgical intervention indicated. The patient's eyes history of HIV disease and hepatitis-C. Onset (ago): day(s) (1) Timing confirmed by: family member (Daughter and son) Location: other (Decreased level of consciousness) Severity: moderate Quality: weak Relieving factors: none Exacerbating factors: none Context: gradual onset Associated symptoms: denies other symptoms Related Data Home Medications ?Medication ?Instructions ?Recorded ?Confirmed aspirin 81 mg tablet,delayed 81 mg PO DAILY 08/11/20 04/10/25 release (Adult Low Dose Aspirin) elviteg 150 mg-cob 150 mg-emtricit 1 tab PO DAILY 08/11/20 04/10/25 200 mg-tenofo alafenam 10 mg tablet (Genvoya) meclizine 25 mg tablet 25 mg PO TID 08/11/20 04/10/25 albuterol sulfate 2.5 mg/3 mL 2.5 mg inhalation Q4-6H PRN 07/19/22 04/10/25 (0.083 %) solution for nebulization Shortness Of Breath Or Wheezing baclofen 10 mg tablet 10 mg PO BID PRN Pain 07/19/22 04/10/25 ergocalciferol (vitamin D2) 1,250 1,250 mcg PO QWEEK 07/19/22 04/10/25 mcg (50,000 unit) capsule oxycodone 5 mg tablet 10 mg PO DAILY PRN moderate pain 07/19/22 04/10/25 mometasone 200 mcg/actuation HFA 1 puff inhalation BID 10/25/23 04/10/25 aerosol inhaler (Asmanex HFA) albuterol sulfate 90 mcg/actuation 2 puff inhalation Q4-6H PRN 04/10/25 04/10/25 aerosol inhaler (Ventolin HFA) Shortness Of Breath Or Wheezing bisacodyl 5 mg tablet,delayed 10 mg PO BEDTIME PRN Constipation 04/10/25 04/10/25 release (Dulcolax (bisacodyl)) citalopram 10 mg tablet 10 mg PO DAILY 04/10/25 04/10/25 Previous Rx's ?Medication ?Instructions ?Recorded dexlansoprazole 60 mg 60 mg PO DAILY 90 days #90 caps 11/20/24 capsule,biphase delayed release (Dexilant) docusate sodium 100 mg capsule 100 mg PO DAILY #90 caps 02/02/25 Allergies Allergy/AdvReac Type Severity Reaction Status Date / Time ibuprofen (From Motrin) Allergy Intermediate RASH Verified 04/10/25 15:41 Sulfa (Sulfonamide Allergy Intermediate RASH Verified 04/10/25 15:41 Antibiotics) Review of Systems Review of Systems: Yes Unobtainable due to mental condition PMFSH Past Medical History Medical History Abdominal pain Dysphagia Dysphagia Chronic idiopathic constipation HIV (human immunodeficiency virus infection) Chronic hepatitis C GERD with esophagitis Surgical History Hx of section Hx of colonoscopy History of esophagogastroduodenoscopy (EGD) Hx of cholecystectomy Hx of appendectomy Family History Family History Father No problems noted. Mother No problems noted. Social History Social History Household Members: Spouse Housing: House Do you presently have visiting nurse or other home services: Yes ([employer] everyday) Alcohol intake: current Alcohol intake frequency: does not drink Patient Tobacco Use Status: Never used Tobacco Smoked in Last 30 Days: No Use of substances other than those prescribed or required for medical reasons: No Advance Directives: No Advance Directives Information Provided: Yes Do you have a plan to hurt others: No Plan Recently lost weight without trying: No Eating poorly because of decreased appetite: No Nutrition Risks: No Nutritional Risk Patient : No Poor oral hygiene: No Physical Exam Exam: Exam: She is lethargic but easily arousable Vital Signs: Vital Signs: Last Vital Signs Temp 98.1 F 04/11/25 03:53 Pulse 57 04/11/25 03:53 Resp 18 04/11/25 03:53 BP 134/65 04/11/25 03:53 Pulse Ox 98 04/11/25 03:53 O2 Del Method Nasal Cannula 04/11/25 03:53 O2 Flow Rate 3 04/11/25 03:53 BMI result Body Mass Index 32.1 Const: General: no acute distress Nutritional Appearance: average body habitus HEENT: Head: Yes normal to inspection General nose exam: Normal external nose present Mouth: Normal oral and palatal mucosa present Eyes: Other: No vision in the right eye no red reflex on the left eye she is able to see 2 fingers only a close range Conjunctivae: conjunctivae normal Sclerae: sclerae normal Neck: Neck: Yes normal visual inspection Chest: Chest palpation & inspection: normal inspection of the chest Resp: Effort & Inspection: normal respiratory effort Auscultation: clear to auscultation bilaterally Cardio: Jugular venous distension: no JVD Rate: regular rate Rhythm: regular rhythm GI: Inspection: Yes normal to inspection Palpation (GI): Soft to palpation, not firm and nontender Percussion: Yes normal to percussion Skin: General skin exam: no rashes or lesions noted Lesions: no lesions Rashes: no rashes Neuro: Other: She is awake alert follows simple commands no focal Course Reevaluation(s) Reevaluation #1: 16:09 off shift now signed out to Dr Barton Spoke with Dr Toribio eye at baseline vision 20/200 left eye hx of endoophaltmitis and vitrous hemorrhagy Time: 16:09 Medications Administered Generic Name Dose Route Start Last Admin Trade Name Freq PRN Reason Stop Dose Admin Lactulose 20 gm 04/10/25 21:00 04/10/25 20:34 Lactulose 20 Gm/30 Ml Solution PO 20 gm TID RIO Administration Sodium Chloride 3 ml 04/11/25 00:00 04/11/25 05:41 0.9 % Sodium Chloride Flush 3 Ml Syringe IVFLUSH 3 ml QSHIFT RIO Administration Discontinued Medications Generic Name Dose Route Start Last Admin Trade Name Freq PRN Reason Stop Dose Admin Sodium Chloride 1,000 mls @ 999 mls/hr 04/10/25 16:30 04/10/25 20:06 Ns IV 04/10/25 17:30 Infused .Q1H1M RIO Infusion Lactulose 20 gm 04/10/25 16:20 04/10/25 16:46 Lactulose 20 Gm/30 Ml Solution PO 04/10/25 16:21 20 gm ONCE ONE Administration Metoprolol Tartrate 5 mg 04/10/25 20:21 04/10/25 20:34 Metoprolol Tartrate 5 Mg/5 Ml Vial IVPUSH 04/10/25 20:22 5 mg ONCE STA Administration Protocol Medical Decision Making Medical Decision Making [facility] Narrative: Patient presented with altered level of consciousness, possible stroke possible metabolic encephalopathy also decreased vision left eye which is subacute we will obtain imaging Patient is signed out to me pending MRI of the brain to rule out CVA. Dr. Gil has spoken to Dr. Fajardo about patient eye. Baseline acuity is 20/200 history of endopthamlitis, vitreous hemorrhage. However patient does appear to be somnolent on my evaluation encephalopathic. Family stated this is not her normal mentation. I did notice that her ammonia level was 105. We are still currently pending UA at this time we will plan to give patient some IV fluid. We will plan to bladder scan the patient and have the nursing staff perform a straight cath for UA sample. We will also plan to give patient 20 mg of p.o. lactulose for possible hepatic encephalopathy. Still currently pending MRI at this time. MRI is negative for any signs of stroke patient will be admitted to the hospital for hepatic encephalopathy Differential Diagnosis Differential Diagnoses: The differential diagnosis associated with the presentation includes CVA/hypoglycemia/electrolytes abnormality/hyperammonemia Admission/Observation Consideration of admission/observation: Escalation of care including admission/observation considered Lab Data [facility] Lab Attestation statement: I reviewed the patient's lab results. 04/10/25 15:05 04/10/25 15:05 Labs: Lab Results 04/10/25 04/10/25 04/10/25 Range/Units 15:01 15:04 15:05 WBC 6.4 (4.8-10.8) X10*3/uL RBC 3.97 L (4.20-5.50) X10*6/uL Hgb 12.7 (12.0-16.0) g/dl Hct 36.4 L (37.0-47.0) % MCV 91.7 (80.0-98.0) fL MCH 32.0 (27.0-33.0) pg MCHC 34.9 (31.0-35.0) g/dl RDW 13.4 (11.0-16.0) % Plt Count 64 L (160-400) X10*3/uL MPV 11.6 (9.4-12.3) fL Immature Gran % (Auto) 0.2 (0.0-0.4) % Neut % (Auto) 40.0 L (45-73) % Lymph % (Auto) 31.6 (20-40) % [place] % (Auto) 7.8 (2-11) % Eos % (Auto) 18.2 H (0-4) % Baso % (Auto) 2.2 H (0-2) % Lymph # (Auto) 2.0 (1.2-4.9) X10*3/uL [place] # (Auto) 0.5 (0.1-1.2) X10*3/uL Eos # (Auto) 1.2 H (0.0-0.4) X10*3/uL Baso # (Auto) 0.1 (0.0-0.2) X10*3/uL Abs Immat Gran (auto) 0.01 (0.00-0.03) X10*3/uL Absolute Neuts (auto) 2.6 (2.0-8.3) x10*3/uL Absolute Nucleated RBC 0.000 (0.0-0.012) X10*3/uL Nucleated RBC % (auto) 0.0 (0.0-0.2) /100WBC PT 14.0 H (11.2-13.5) SEC Whole Blood PT 13.4 (11.1-13.5) sec INR 1.1 (0.9-1.1) Whole Blood INR 1.1 (0.9-1.1) VBG pH (7.32-7.43) VBG pCO2 mmHg VBG pO2 mmHg VBG HCO3 (22-26) mmol/L VBG O2 Saturation % VBG Base Excess mmol/L Sodium 141 (135-145) mmol/L Potassium 3.9 (3.3-5.1) mmol/L Chloride 112 H (96-108) mmol/L Carbon Dioxide 24 (22-29) mmol/L Anion Gap 9 L (12-20) BUN 9 (9-16) mg/dL Creatinine 1.09 (0.5-1.4) mg/dL Estim Creat Clear Calc TNP Estimated GFR 51 POC Glucose 130 H (60-115) mg/dL Random Glucose 141 H (60-115) mg/dL Calcium 9.0 (8.4-10.2) mg/dL Total Bilirubin 1.9 H (0.0-1.0) mg/dL AST 37 H (5-31) U/L ALT 16 (0-31) U/L Alkaline Phosphatase 172 H (39-117) U/L Ammonia (13-55) umol/L Troponin I High Sens < 2.7 (<3.5-17.0) ng/L Total Protein 7.1 (6.5-8.0) g/dL Albumin 3.3 L (3.5-5.0) g/dL Urine Color Urine Appearance Urine pH (5.0-9.0) Ur Specific [place] (1.005-1.025) Urine Protein (Neg-Trace) mg/dL Urine Glucose (UA) (Negative) mg/dL Urine Ketones (Negative) mg/dL Urine Blood (Negative) Urine Nitrite (Negative) Ur Leukocyte Esterase (Negative) Urine RBC (0-2) /HPF Urine WBC (0-5) /HPF Ur Squamous Epith Cells (0-2) /HPF Urine Bacteria (None Seen) Hyaline Casts (0-2) /LPF Urine Opiates Screen (Not Detect) Ur Buprenorphine Scrn (Not Detect) ng/mL Ur Oxycodone Screen (Not Detect) ng/mL Urine Methadone Screen (Not Detect) ng/mL Urine Fentanyl Screen (Not Detect) Ur Barbiturates Screen (Not Detect) Ur Phencyclidine Scrn (Not Detect) Ur Amphetamines Screen (Not Detect) U Benzodiazepines Scrn (Not Detect) Urine Cocaine Screen (Not Detect) U Marijuana (THC) Screen (Not Detect) Ethyl Alcohol < 10 mg/dL 04/10/25 04/10/25 04/10/25 Range/Units 15:37 15:44 19:12 WBC (4.8-10.8) X10*3/uL RBC (4.20-5.50) X10*6/uL Hgb (12.0-16.0) g/dl Hct (37.0-47.0) % MCV (80.0-98.0) fL MCH (27.0-33.0) pg MCHC (31.0-35.0) g/dl RDW (11.0-16.0) % Plt Count (160-400) X10*3/uL MPV (9.4-12.3) fL Immature Gran % (Auto) (0.0-0.4) % Neut % (Auto) (45-73) % Lymph % (Auto) (20-40) % [place] % (Auto) (2-11) % Eos % (Auto) (0-4) % Baso % (Auto) (0-2) % Lymph # (Auto) (1.2-4.9) X10*3/uL [place] # (Auto) (0.1-1.2) X10*3/uL Eos # (Auto) (0.0-0.4) X10*3/uL Baso # (Auto) (0.0-0.2) X10*3/uL Abs Immat Gran (auto) (0.00-0.03) X10*3/uL Absolute Neuts (auto) (2.0-8.3) x10*3/uL Absolute Nucleated RBC (0.0-0.012) X10*3/uL Nucleated RBC % (auto) (0.0-0.2) /100WBC PT (11.2-13.5) SEC Whole Blood PT (11.1-13.5) sec INR (0.9-1.1) Whole Blood INR (0.9-1.1) VBG pH 7.40 (7.32-7.43) VBG pCO2 38 mmHg VBG pO2 55 mmHg VBG HCO3 23 (22-26) mmol/L VBG O2 Saturation 80.0 % VBG Base Excess -0.6 mmol/L Sodium (135-145) mmol/L Potassium (3.3-5.1) mmol/L Chloride (96-108) mmol/L Carbon Dioxide (22-29) mmol/L Anion Gap (12-20) BUN (9-16) mg/dL Creatinine (0.5-1.4) mg/dL Estim Creat Clear Calc Estimated GFR POC Glucose (60-115) mg/dL Random Glucose (60-115) mg/dL Calcium (8.4-10.2) mg/dL Total Bilirubin (0.0-1.0) mg/dL AST (5-31) U/L ALT (0-31) U/L Alkaline Phosphatase (39-117) U/L Ammonia 105 H (13-55) umol/L Troponin I High Sens (<3.5-17.0) ng/L Total Protein (6.5-8.0) g/dL Albumin (3.5-5.0) g/dL Urine Color Yellow Urine Appearance Clear Urine pH 7.0 (5.0-9.0) Ur Specific [place] >= 1.030 H (1.005-1.025) Urine Protein Negative (Neg-Trace) mg/dL Urine Glucose (UA) 250 H (Negative) mg/dL Urine Ketones Negative (Negative) mg/dL Urine Blood Negative (Negative) Urine Nitrite Negative (Negative) Ur Leukocyte Esterase Negative (Negative) Urine RBC 0-2 (0-2) /HPF Urine WBC 0-5 (0-5) /HPF Ur Squamous Epith Cells 0-2 (0-2) /HPF Urine Bacteria None Seen (None Seen) Hyaline Casts 0-2 (0-2) /LPF Urine Opiates Screen Not Detected (Not Detect) Ur Buprenorphine Scrn Not Detected (Not Detect) ng/mL Ur Oxycodone Screen Not Detected (Not Detect) ng/mL Urine Methadone Screen Not Detected (Not Detect) ng/mL Urine Fentanyl Screen Not Detected (Not Detect) Ur Barbiturates Screen Not Detected (Not Detect) Ur Phencyclidine Scrn Not Detected (Not Detect) Ur Amphetamines Screen Not Detected (Not Detect) U Benzodiazepines Scrn Not Detected (Not Detect) Urine Cocaine Screen Not Detected (Not Detect) U Marijuana (THC) Screen Not Detected (Not Detect) Ethyl Alcohol mg/dL Independent Interpretation I performed an independent interpretation of an: EKG Interpretation: Normal sinus rhythm rate [address]-T changes no acute ischemia Independent Historian son and Daughter Critical Care Time Critical Care Time Critical Care Time: Yes Total Critical Care Time: 40 Attestation: Time is exclusive of separately billable procedures. Time includes: direct patient care, patient reassessment, coordination of patient care, interpretation of data (laboratory data, pulse oximetry, arterial blood gases and chest xrays), review of patient's medical records, medical consultation and documentation of patient care. Procedures excluded from critical care time: central intravenous line placement and electrocardiography. Discharge Plan Discharge Clinical Impression: Acute hepatic encephalopathy Altered mental state Qualifiers: Altered mental status type: unspecified Qualified Code(s): R41.82 - Altered mental status, unspecified Patient Disposition: Admitted As Inpatient Interventions: ED Discharge Assessment Last Done: 04/10/25 16:07 Admission Worksheet (ED) Last Done: 04/10/25 21:41 Discharge Date/Time: 04/10/25 22:47
[2025-04-10 15:58] LABS: Ammonia 105 umol/L (13-55)
--- NOTE | 2025-04-10 16:03 | MHC.EDTECH ---
delay on ekg due to patient being in CT scan. nurse aware.
--- NOTE | 2025-04-10 16:36 | MHC.STROKE ---
Called to ED for stroke alert. Pt in CT scan upon my arrival. Pt confused and unable to offer any information. Family reporting that patient is confused and cannot remember anything. Reports that this is not her baseline. They stated that she was cooking last night around 7pm. She can be forgetful at times from her previous stroke however they're reporting that this is a marked difference. Pt with hx of Stroke in 2008 which caused vision loss in her right eye. Today she is noted with eye deviation in her left eye, eye is turned inward. Pt unable to follow any commands to test strength etc. Family reporting that she woke up confused and generally weak and progressively got worse throughout the day. Stroke Education reviewed with family. Pt's medical hx reviewed including medications, activity, diet, and social hx. Plan is for MRI Family updated.
[2025-04-10 19:19] LABS: Appearance Urine Clear; Glucose Urine UA 250 mg/dL (Negative); PH 7.0 (5.0-9.0); Specific Gravity - Urine >= 1.030 (1.005-1.025)
[2025-04-10 19:27] LABS: Cannabinoid Screen Urine Not Detected (Not Detect)
--- NOTE | 2025-04-10 20:11 | PM.IMHP ---
History of Present Illness Date of Service: 04/10/25 Attending physician on admission: Hannah Oliveros Chief Complaint: confusion Isa Carr is a 60 years old woman with past medical history significant for old CVA (2008), chronic hep C and HIV on HAARTs, possible portal hypertensive gastropathy and small varices who was brought to the emergency department via ambulance after her family noted that she was confused since this morning. The patient experience headache but this resolved. Per family the patient refused to eat. No speech difficulty, focal weakness, fever or loss of consciousness reported by family. patient denied chest pain, shortness on breath, abdominal pain, nausea or vomiting. Patient has no history of hepatic encephalopathy. She has chronic blindness. In the ED, she was found to have normal vital signs. WBC count is 6.4. Hemoglobin 12.7 and platelets 64. INR is 1.1. There is no respiratory acidosis. UA is not consistent with UTI. Urine drug screen and ethanol levels Are not detected. Head CT scan showed no acute intracranial hemorrhage. It did show small vessel occlusive disease with likely prior stroke of the right MCA distribution. Head and neck CTA showed no hemodynamically significant stenosis or occlusion. CXR is negative. Brain MRI showed mild left frontal white matter edema with appear to be along the track of the left developmental venous anomaly with no evidence of venous thrombosis. ED tx: Lactulose 20 g p.o., NS 1 L bolus. Review of Systems Review of Systems: Yes Unobtainable due to mental status [facility] Medical History Abdominal pain Dysphagia Dysphagia Chronic idiopathic constipation HIV (human immunodeficiency virus infection) Chronic hepatitis C GERD with esophagitis Family History Father No problems noted. Mother No problems noted. Surgical History Hx of section Hx of colonoscopy History of esophagogastroduodenoscopy (EGD) Hx of cholecystectomy Hx of appendectomy Social History Household Members: Spouse Housing: House Do you presently have visiting nurse or other home services: Yes ([employer] everyday) Alcohol intake: current Alcohol intake frequency: does not drink Patient Tobacco Use Status: Never used Tobacco Smoked in Last 30 Days: No Use of substances other than those prescribed or required for medical reasons: No Advance Directives: No Advance Directives Information Provided: Yes Do you have a plan to hurt others: No Plan Recently lost weight without trying: No Eating poorly because of decreased appetite: No Nutrition Risks: No Nutritional Risk Patient : No Poor oral hygiene: No Meds Allergies Allergy/AdvReac Type Severity Reaction Status Date / Time ibuprofen (From Motrin) Allergy Intermediate RASH Verified 04/10/25 15:41 Sulfa (Sulfonamide Allergy Intermediate RASH Verified 04/10/25 15:41 Antibiotics) Active Medications: Current Medications Sodium Chloride (0.9 % Sodium Chloride Flush 3 Ml Syringe) 3 ml IVFLUSH [facility] Home Medications ?Medication ?Instructions ?Recorded ?Confirmed ?Last Taken ?Type aspirin 81 mg tablet,delayed 81 mg PO DAILY 08/11/20 04/10/25 04/09/25 History release (Adult Low Dose Aspirin) elviteg 150 mg-cob 150 mg-emtricit 1 tab PO DAILY 08/11/20 04/10/25 04/09/25 History 200 mg-tenofo alafenam 10 mg tablet (Genvoya) meclizine 25 mg tablet 25 mg PO TID 08/11/20 04/10/25 04/09/25 History albuterol sulfate 2.5 mg/3 mL 2.5 mg inhalation Q4-6H PRN 07/19/22 04/10/25 Unknown History (0.083 %) solution for nebulization Shortness Of Breath Or Wheezing baclofen 10 mg tablet 10 mg PO BID PRN Pain 07/19/22 04/10/25 Unknown History ergocalciferol (vitamin D2) 1,250 1,250 mcg PO QWEEK 07/19/22 04/10/25 Unknown History mcg (50,000 unit) capsule oxycodone 5 mg tablet 10 mg PO DAILY PRN moderate pain 07/19/22 04/10/25 Unknown History mometasone 200 mcg/actuation HFA 1 puff inhalation BID 10/25/23 04/10/25 04/09/25 History aerosol inhaler (Asmanex HFA) albuterol sulfate 90 mcg/actuation 2 puff inhalation Q4-6H PRN 04/10/25 04/10/25 Unknown History aerosol inhaler (Ventolin HFA) Shortness Of Breath Or Wheezing bisacodyl 5 mg tablet,delayed 10 mg PO BEDTIME PRN Constipation 04/10/25 04/10/25 Unknown History release (Dulcolax (bisacodyl)) citalopram 10 mg tablet 10 mg PO DAILY 04/10/25 04/10/25 04/09/25 History Physical Exam Vital Signs and Narrative: Vital Signs: Last Vital Signs Temp 98.1 F 04/10/25 19:16 Pulse 61 04/10/25 19:16 Resp 18 04/10/25 19:16 BP 116/71 04/10/25 19:16 Pulse Ox 96 04/10/25 19:16 O2 Del Method Room Air 04/10/25 19:16 BMI result Body Mass Index 32.1 General: Alert, oriented Only to person, in no acute distress. Pleasantly confused. Well nourished and cooperative. Afebrile. HEENT: Head normocephalic, atraumatic. PER, EOMI. Sclerae anicteric, conjunctiva clear. Oropharynx without erythema or exudate. Mucous membranes moist. Neck: Supple, no lymphadenopathy, or JVD. Heart: RRR, no murmurs, rubs or gallops. Lungs: Clear to auscultation bilaterally. No wheezes, rales, or rhonchi. Normal respiratory effort. Abdomen: Soft, non tenderness, nondistended, normoactive bowel sounds. Extremities: No calf tenderness bilaterally, no swelling Musculoskeletal: Full range of motion. No joint swelling, deformity, or tenderness. generalized muscle atrophy Skin: Warm/Dry. No pallor. No jaundice. Neurologic: Alert & oriented only to person. Moving all extremities spontaneously. Normal speech. Follows simple commands. Psychological: Normal mood. Results Labs 04/10/25 15:05 04/10/25 15:05 Labs: Laboratory Results - last 24 hr 04/10/25 04/10/25 04/10/25 15:01 15:04 15:05 MCV 91.7 MCH 32.0 MCHC 34.9 RDW 13.4 Plt Count 64 L MPV 11.6 Immature Gran % (Auto) 0.2 Neut % (Auto) 40.0 L Lymph % (Auto) 31.6 [place] % (Auto) 7.8 Eos % (Auto) 18.2 H Baso % (Auto) 2.2 H Lymph # (Auto) 2.0 [place] # (Auto) 0.5 Eos # (Auto) 1.2 H Baso # (Auto) 0.1 Abs Immat Gran (auto) 0.01 Absolute Neuts (auto) 2.6 Absolute Nucleated RBC 0.000 Nucleated RBC % (auto) 0.0 PT 14.0 H Whole Blood PT 13.4 INR 1.1 Whole Blood INR 1.1 VBG pH VBG pCO2 VBG pO2 VBG HCO3 VBG O2 Saturation VBG Base Excess Anion Gap 9 L Estim Creat Clear Calc TNP Estimated GFR 51 POC Glucose 130 H Random Glucose 141 H Calcium 9.0 Total Bilirubin 1.9 H AST 37 H ALT 16 Alkaline Phosphatase 172 H Ammonia Troponin I High Sens < 2.7 Total Protein 7.1 Albumin 3.3 L Urine Color Urine Appearance Urine pH Ur Specific [place] Urine Protein Urine Glucose (UA) Urine Ketones Urine Blood Urine Nitrite Ur Leukocyte Esterase Urine RBC Urine WBC Ur Squamous Epith Cells Urine Bacteria Hyaline Casts Urine Opiates Screen Ur Buprenorphine Scrn Ur Oxycodone Screen Urine Methadone Screen Urine Fentanyl Screen Ur Barbiturates Screen Ur Phencyclidine Scrn Ur Amphetamines Screen U Benzodiazepines Scrn Urine Cocaine Screen U Marijuana (THC) Screen Ethyl Alcohol < 10 04/10/25 04/10/25 04/10/25 15:37 15:44 19:12 MCV MCH MCHC RDW Plt Count MPV Immature Gran % (Auto) Neut % (Auto) Lymph % (Auto) [place] % (Auto) Eos % (Auto) Baso % (Auto) Lymph # (Auto) [place] # (Auto) Eos # (Auto) Baso # (Auto) Abs Immat Gran (auto) Absolute Neuts (auto) Absolute Nucleated RBC Nucleated RBC % (auto) PT Whole Blood PT INR Whole Blood INR VBG pH 7.40 VBG pCO2 38 VBG pO2 55 VBG HCO3 23 VBG O2 Saturation 80.0 VBG Base Excess -0.6 Anion Gap Estim Creat Clear Calc Estimated GFR POC Glucose Random Glucose Calcium Total Bilirubin AST ALT Alkaline Phosphatase Ammonia 105 H Troponin I High Sens Total Protein Albumin Urine Color Yellow Urine Appearance Clear Urine pH 7.0 Ur Specific [place] >= 1.030 H Urine Protein Negative Urine Glucose (UA) 250 H Urine Ketones Negative Urine Blood Negative Urine Nitrite Negative Ur Leukocyte Esterase Negative Urine RBC 0-2 Urine WBC 0-5 Ur Squamous Epith Cells 0-2 Urine Bacteria None Seen Hyaline Casts 0-2 Urine Opiates Screen Not Detected Ur Buprenorphine Scrn Not Detected Ur Oxycodone Screen Not Detected Urine Methadone Screen Not Detected Urine Fentanyl Screen Not Detected Ur Barbiturates Screen Not Detected Ur Phencyclidine Scrn Not Detected Ur Amphetamines Screen Not Detected U Benzodiazepines Scrn Not Detected Urine Cocaine Screen Not Detected U Marijuana (THC) Screen Not Detected Ethyl Alcohol Imaging Radiologist's Impressions: Impressions Head CT 04/10/25 14:55 IMPRESSION: No acute intracranial hemorrhage. Small vessel occlusive disease disease with likely prior stroke, right MCA distribution. This critical result was discussed with emergency physician Dr. Dov Gil at 3:08 PM hours on April 10, 2025 via [employer] It was ascertained that the content and urgency of the report was understood at the time of direct communication. Electronically signed by: Michael Mccall MD 04/10/2025 03:09 PM EST RP Head/Neck CTA 04/10/25 15:09 IMPRESSION: CTA NECK: No hemodynamically significant stenosis. CTA HEAD: No hemodynamically significant stenosis or occlusion. Posterior left frontal lobe developmental venous anomaly. Dr. Gil notified via [employer] at 4:19 pm EST Electronically signed by: Micheal Mesa MD 04/10/2025 04:20 PM EST RP Chest X-Ray 04/10/25 15:26 IMPRESSION: No acute disease. Electronically signed by: Micheal Mesa MD 04/10/2025 03:35 PM EST RP Assessment and Plan (1) Hepatic encephalopathy: Status: Acute (2) Abnormal brain MRI: Status: Acute Plan Isa Carr is a 60 y/o woman with a PMHx for old CVA (2008), possible portal hypertensive gastropathy and small varices who presents with: Hepatic encephalopathy in the setting of underlying chronichepatitis-C. NPO except for meds. Avoid sedatives. Neuro checks. Aspiration precautions. Swallow evaluation. Continue therapy with lactulose 20 g t.i.d.. Continue to monitor ammonia level. Gastroenterology consult. Abnormal brain MRI: Mild left frontal white matter edema. neurology consult. Chronic hep C. Continue home meds. Chronic thrombocytopenia; ikely due to liver disease. Continue to monitor. HIV. Continue home meds. Mood disorder. Continue citalopram. Code status: Full DVT prophylaxis: SCDs only, patient has thrombocytopenia. Patient will need hospitalization for at least 2 midnights for hepatic encephalopathy treatment with lactulose And neuro checks; patient will need evaluation by Neurology and GI services. This documentation was generated using dictation software; minor spreading or final dressing cutter errors may be present. Quality Stroke Does the patient have a stroke diagnosis?: No VTE Prior VTE?: No VTE Risk Level:: Medical - moderate - high VTE Device Contraindication: N/A - Device Ordered VTE Drug Contraindication: Treatment Not Indicated
--- NOTE | 2025-04-10 21:38 | HO.NURTONUR ---
Pt from home [facility] after family noted pt awoke confused this morning, pt was noted to be lethargic then night before and vision changes to the left. Pt is blind out of the right eye. Pt has hx of CVA in 2008, hep c and HIV. Pt intially reporting a headache but has resolved since, pt denies cp, sob, abd pain, n/v. Pt primarily estonian speaking. Pt alert to self only, able to answer some questions appropriately, and follow commands. Pt has purwik in place. Pt has 20G IV in LAC and has been medicated per mar. CT scan negative. Brain MRI showed mild left frontal white matter edema with appear to be along the track of the left developmental venous anomaly with no evidence of venous thrombosis. Labs- Ammonia - 105 Total Bili- 1.9 AST- 37 Alkaline Phosphate- 172
--- NOTE | 2025-04-10 22:04 | PHA.MEDREC ---
Addendum entered by John Serrano, PharmD 04/10/25 22:19: MED REC CHECKED BY [facility] Original Note: Pharmacy Consult ? Medication Reconciliation Pharmacy has completed the medication reconciliation. Spoke with pt daughter over the phone and she confirmed pt medications. Family confirmed pt Vitamin D2 once a week but is unsure what day of the week she takes it on and they are unsure if pt still taking Asmanex inhaler still and doesn't remember seeing her use that.
[2025-04-11] VITALS (8 sets, daily range): BP systolic 114–150; BP diastolic 55–69; PULSE 53–73; RESP 16–20; TEMP 36.5–36.8; O2SAT 94–98
--- OUTSIDE RECORDS SUMMARY | 2025-04-11 00:58 | XMS_ITS | Clinical Summary ---
Author Organization [facility] Address [address] [place] [address] Phone Care Team Providers Care Customer Success Director Name Role Phone Magali Reynoso MD Primary Care Provider [phone] Allergies Active Allergy Reactions Criticality Noted Date [...] Chronic back pain 01/22/2024 Chronic hepatitis C ([facility]/HCC V24, [facility]/HCC V28) 0 01/22/2024 GERD (gastroesophageal reflux disease) Immunodeficiency disorder ([facility] V24) 01/22/20 24 Rhinosinusitis 01/22/2024 Subacute thyroiditis [...] Last Done Comments Breast Cancer Screening 1965 Colorectal Cancer Screening: Colonoscopy 1963 Diabetes: Annual Foot Exam 1973 Diabetes: Annual Retina Eye Exam 1973 Cervical Cancer Screening: Pap Smear 01/10/1984 Diabetes: Annual GFR (Glomerular Filtration Rate) 02/22/2008 02/21/2007 RSV Immunization Adult Patients (1 - Risk 50-74 years 1-dose series) 2013 Zoster Vaccines (1 of 2) 2013 Pneumococcal Vaccine: 50+ Years (2 of 2 - PCV) 11/22/2019 11/21/2018 Hepatitis B Vaccines (1 of 3 - Risk 3-dose series) 2023 Cholesterol Screening (Lipid Panel) 03/06/2024 HIV Screening 03/06/2024 Hepatitis C Screening [...] Maintenance Insurance MEDICAID - [place] Care Teams Customer Success Director Relationship Specialty Start Date End Date Magali Reynoso MD [address] [place] [id number] PCP - General 12/26/23
[2025-04-11 04:45] LABS: Glucose, Whole Blood 117 mg/dL (60-115)
[2025-04-11] MEDS: 0.9 % Sodium Chloride Flush 3 ML SYRINGE IVFLUSH ×3 (05:41→15:34)
[2025-04-11 07:41] LABS: MANUAL DIFF FLAG NO
[2025-04-11 07:43] LABS: Imm Gran Abs Auto 0.01 X10*3/uL (0.00-0.03); Imm Gran Pct Auto 0.2 % (0.0-0.4); Lymphocytes Absolute Auto 2.0 X10*3/uL (1.2-4.9); NRBC Abs Auto 0.000 X10*3/uL (0.0-0.012); NRBC Pct Auto 0.0 /100WBC (0.0-0.2); PLT CLUMP 1; SCAN SMEAR FLAG 1
[2025-04-11 07:45] LABS: Hematocrit 36.8 % (37.0-47.0); Hemoglobin 12.6 g/dl (12.0-16.0); Mean Corpuscular HGB Conc 34.2 g/dl (31.0-35.0); Mean Corpuscular Hemoglobin 31.5 pg (27.0-33.0); Mean Corpuscular Volume 92.0 fL (80.0-98.0); Red Blood Count 4.00 X10*6/uL (4.20-5.50)
[2025-04-11 07:46] LABS: White Blood Count 6.5 X10*3/uL (4.8-10.8)
[2025-04-11 07:47] LABS: Platelet Count 59 X10*3/uL (160-400)
[2025-04-11 08:06] LABS: Alanine Aminotransferase 12 U/L (0-31); Albumin Level 3.0 g/dL (3.5-5.0); Alkaline Phosphatase 148 U/L (39-117); Anion Gap 10 (12-20); Aspartate Amino Transferase 33 U/L (5-31); Blood Urea Nitrogen 6 mg/dL (9-16); Calcium 8.8 mg/dL (8.4-10.2); Carbon Dioxide 21 mmol/L (22-29); Chloride 114 mmol/L (96-108); Creatinine Clr Calc Pharmacy 49.9; Estimated Glomerular Filt Rate 51; Magnesium 2.0 mg/dL (1.6-2.6); Potassium 3.8 mmol/L (3.3-5.1); Sodium 141 mmol/L (135-145); Total Protein 6.7 g/dL (6.5-8.0)
[2025-04-11] MEDS: Fluticasone Propionate 250 MCG BLST.W.DEV 1 PUFF INHALE ×2 (08:07→20:03)
[2025-04-11] MEDS: Elviteg/Cobi/Emtric/Tenofo Ala 150/150/200/10 TABLET 1 TAB PO (08:15)
[2025-04-11 10:01] LABS: OBS Int Ctl Valid YES; OBS1 POSITIVE (NEGATIVE)
--- NOTE | 2025-04-11 12:19 | HO.PM.IMPN ---
Subjective Subjective Date of Service: 04/11/25 Interval History: f/u hepatic encephalopathy (HE) She's completly lucid and at baseline now Physical Exam Vital Signs: Vital Signs: Last Vital Signs Temp 97.7 F 04/11/25 10:53 Pulse 56 04/11/25 10:53 Resp 20 04/11/25 10:53 BP 114/55 L 04/11/25 10:53 Pulse Ox 94 04/11/25 10:53 O2 Del Method Room Air 04/11/25 10:53 O2 Flow Rate 3 04/11/25 03:53 BMI result Body Mass Index 29.3 Const: Other: General: AO X 3, no acute distress Resp: CTA bilateral CVS: S1,S2,RRR GI: +BS, NT, no distention Skin: No rash Neuro: motor grossly intact Psych: appropriate affect Objective Data Active Medications Albuterol Sulfate (Albuterol Sulfate (0.083%) 2.5 Mg/3 Ml Vial.Neb) 2.5 mg INHALE Q4H PRN PRN Reason: Shortness Of Breath Or Wheezing Baclofen (Baclofen 10 Mg Tablet) 10 mg PO BID PRN PRN Reason: muscular pain, spasticity Elvitegravir/Cobicis/Emtricit/Tenof (Elviteg/Estrella/Emtric/Tenofo Ala 150/150/200/10 Tablet) 1 tab PO DAILY [facility] Last Admin: 04/11/25 08:15 Dose: 1 tab Documented By: CAMILA Escitalopram Oxalate (Escitalopram Oxalate 5 Mg Tablet) 5 mg PO DAILY [facility] Last Admin: 04/11/25 08:16 Dose: 5 mg Documented By: CAMILA Fluticasone Propionate (Fluticasone Propionate 250 Mcg Blst.W.Dev) 1 puff INHALE RBID [facility] Last Admin: 04/11/25 08:07 Dose: 1 puff Documented By: CRISTI Lactulose (Lactulose 20 Gm/30 Ml Solution) 20 gm PO TID [facility] Last Admin: 04/11/25 08:16 Dose: 20 gm Documented By: CAMILA Meclizine HCl (Meclizine Hcl 25 Mg Tablet) 25 mg PO TID [facility] Last Admin: 04/11/25 08:16 Dose: 25 mg Documented By: CAMILA Omeprazole (Omeprazole 40 Mg Capsule.) 40 mg PO DAILY@1630 [facility] Sodium Chloride (0.9 % Sodium Chloride Flush 3 Ml Syringe) 3 ml IVFLUSH QSHIFT [facility] Last Admin: 04/11/25 08:16 Dose: 3 ml Documented By: CAMILA Labs 04/11/25 06:29 04/11/25 06:29 Labs: Laboratory Results - last 24 hr 04/10/25 04/10/25 04/10/25 15:01 15:04 15:05 MCV 91.7 MCH 32.0 MCHC 34.9 RDW 13.4 Plt Count 64 L MPV 11.6 Immature Gran % (Auto) 0.2 Neut % (Auto) 40.0 L Lymph % (Auto) 31.6 [place] % (Auto) 7.8 Eos % (Auto) 18.2 H Baso % (Auto) 2.2 H Lymph # (Auto) 2.0 [place] # (Auto) 0.5 Eos # (Auto) 1.2 H Baso # (Auto) 0.1 Abs Immat Gran (auto) 0.01 Absolute Neuts (auto) 2.6 Absolute Nucleated RBC 0.000 Nucleated RBC % (auto) 0.0 PT 14.0 H Whole Blood PT 13.4 INR 1.1 Whole Blood INR 1.1 VBG pH VBG pCO2 VBG pO2 VBG HCO3 VBG O2 Saturation VBG Base Excess Anion Gap 9 L Estim Creat Clear Calc TNP Estimated GFR 51 POC Glucose 130 H Random Glucose 141 H Calcium 9.0 Magnesium Total Bilirubin 1.9 H AST 37 H ALT 16 Alkaline Phosphatase 172 H Ammonia Troponin I High Sens < 2.7 Total Protein 7.1 Albumin 3.3 L Urine Color Urine Appearance Urine pH Ur Specific [place] Urine Protein Urine Glucose (UA) Urine Ketones Urine Blood Urine Nitrite Ur Leukocyte Esterase Urine RBC Urine WBC Ur Squamous Epith Cells Urine Bacteria Hyaline Casts Stool Occult Blood Urine Opiates Screen Ur Buprenorphine Scrn Ur Oxycodone Screen Urine Methadone Screen Urine Fentanyl Screen Ur Barbiturates Screen Ur Phencyclidine Scrn Ur Amphetamines Screen U Benzodiazepines Scrn Urine Cocaine Screen U Marijuana (THC) Screen Ethyl Alcohol < 10 04/10/25 04/10/25 04/10/25 15:37 15:44 19:12 MCV MCH MCHC RDW Plt Count MPV Immature Gran % (Auto) Neut % (Auto) Lymph % (Auto) [place] % (Auto) Eos % (Auto) Baso % (Auto) Lymph # (Auto) [place] # (Auto) Eos # (Auto) Baso # (Auto) Abs Immat Gran (auto) Absolute Neuts (auto) Absolute Nucleated RBC Nucleated RBC % (auto) PT Whole Blood PT INR Whole Blood INR VBG pH 7.40 VBG pCO2 38 VBG pO2 55 VBG HCO3 23 VBG O2 Saturation 80.0 VBG Base Excess -0.6 Anion Gap Estim Creat Clear Calc Estimated GFR POC Glucose Random Glucose Calcium Magnesium Total Bilirubin AST ALT Alkaline Phosphatase Ammonia 105 H Troponin I High Sens Total Protein Albumin Urine Color Yellow Urine Appearance Clear Urine pH 7.0 Ur Specific [place] >= 1.030 H Urine Protein Negative Urine Glucose (UA) 250 H Urine Ketones Negative Urine Blood Negative Urine Nitrite Negative Ur Leukocyte Esterase Negative Urine RBC 0-2 Urine WBC 0-5 Ur Squamous Epith Cells 0-2 Urine Bacteria None Seen Hyaline Casts 0-2 Stool Occult Blood Urine Opiates Screen Not Detected Ur Buprenorphine Scrn Not Detected Ur Oxycodone Screen Not Detected Urine Methadone Screen Not Detected Urine Fentanyl Screen Not Detected Ur Barbiturates Screen Not Detected Ur Phencyclidine Scrn Not Detected Ur Amphetamines Screen Not Detected U Benzodiazepines Scrn Not Detected Urine Cocaine Screen Not Detected U Marijuana (THC) Screen Not Detected Ethyl Alcohol 04/11/25 04/11/25 04/11/25 04:42 06:29 09:50 MCV 92.0 MCH 31.5 MCHC 34.2 RDW 13.2 Plt Count 59 L MPV 11.8 Immature Gran % (Auto) 0.2 Neut % (Auto) 37.7 L Lymph % (Auto) 30.9 [place] % (Auto) 11.7 H Eos % (Auto) 17.8 H Baso % (Auto) 1.7 Lymph # (Auto) 2.0 [place] # (Auto) 0.8 Eos # (Auto) 1.2 H Baso # (Auto) 0.1 Abs Immat Gran (auto) 0.01 Absolute Neuts (auto) 2.4 Absolute Nucleated RBC 0.000 Nucleated RBC % (auto) 0.0 PT Whole Blood PT INR Whole Blood INR VBG pH VBG pCO2 VBG pO2 VBG HCO3 VBG O2 Saturation VBG Base Excess Anion Gap 10 L Estim Creat Clear Calc 49.9 Estimated GFR 51 POC Glucose 117 H Random Glucose 119 H Calcium 8.8 Magnesium 2.0 Total Bilirubin 1.8 H AST 33 H ALT 12 Alkaline Phosphatase 148 H Ammonia Troponin I High Sens Total Protein 6.7 Albumin 3.0 L Urine Color Urine Appearance Urine pH Ur Specific [place] Urine Protein Urine Glucose (UA) Urine Ketones Urine Blood Urine Nitrite Ur Leukocyte Esterase Urine RBC Urine WBC Ur Squamous Epith Cells Urine Bacteria Hyaline Casts Stool Occult Blood POSITIVE Urine Opiates Screen Ur Buprenorphine Scrn Ur Oxycodone Screen Urine Methadone Screen Urine Fentanyl Screen Ur Barbiturates Screen Ur Phencyclidine Scrn Ur Amphetamines Screen U Benzodiazepines Scrn Urine Cocaine Screen U Marijuana (THC) Screen Ethyl Alcohol Assessment and Plan (1) Acute hepatic encephalopathy: Status: Acute (2) Chronic hepatitis C: Status: Acute (3) HIV (human immunodeficiency virus infection): Status: Acute (4) Chronic hepatitis C with HIV infection: Status: Acute Plan 60 y/o woman with a PMHx for old CVA (2008), possible portal hypertensive gastropathy and small varices who presents with: Hepatic encephalopathy in the setting of underlying chronichepatitis-C. No evidence of acute infection, back to baseline with lactulose continue daily lactulose, maybe add rifaximin, GI eval pending. Abnormal brain MRI: Mild left frontal white matter edema. neurology consult. No clinical corelation Chronic hep C. Continue home meds. Chronic thrombocytopenia; ikely due to liver disease. Continue to monitor. HIV. Continue home meds. Mood disorder. Continue citalopram. Code status: Full DVT prophylaxis: SCDs only, patient has thrombocytopenia. Quality Stroke Does the patient have a stroke diagnosis?: No VTE Prior VTE?: No VTE Risk Level:: Medical - moderate - high VTE Device Contraindication: N/A - Device Ordered VTE Drug Contraindication: Treatment Not Indicated
--- NOTE | 2025-04-11 12:20 | MHC.SL.SWA ---
Speech Pathologist Impression: Orophayrngeal swallowing function deemed WFL Risk of Aspiration Due to: N/A Dysphasia Diet Status: Recommend START diet of REGULAR/THIN; medications whole with liquids; tray set-up d/t vision impairment Liquid Consistency and Strategies for Safe Swallow: Liquid Intake Recommendation: Thin Liquid Intake Strategies: Solid Food Consistency: Dietary Recommendations: Regular Additional Modifications to Solid Foods: Oral Medication Intake: Whole with Liquid Please contact the pharmacy regarding appropriate crushable or liquid drug formulations that are available whenever modified delivery is recommended. Compensatory Strategies and Precautions to be Taken for Safe Swallow: Supervision While Eating and Drinking for Safe Swallow: Tray Set Up Foods to Avoid: Encourage patient to select softer foods from menu. Swallowing Recommended Treatments: Recommendation for Speech: Inpatient Speech Therapy Comment: Patient presents with oropharyngeal swallowing function deemed WFL. Per patient and family at bedside, patient with no difficulties swallowing . Son does endorse difficulties with swallowing on admission along with confusion. Patient endorses occasional acid reflux, but reports managing with [id number] medications. Patient currently without partial of back 2 molars. Patient with adequate and timely mastication, adequate cohesion and clearance of all solid trials. At home, patient typically avoids tough/dry meats such as steak and chicken. Patient with no s/sx of penetration/aspiration. Recommend START diet of REGULAR/THIN, assist with tray set-up d/t impaired vision, medications whole with liquids. Encourage patient to select softer foods from menu. HARVESTER OPERATOR to follow-up x1. Diet recommendations communicated with MD and RN via secure chat. Frequency/Duration: M-F Daily Date Range for Service Req: Timeline to reassess: Shadow Graph Weight Operator Clinican/Clinical Fellow: No Supervisory Statement: I have reviewed and agree with the student/clinical fellow's documentation: No Speech Language Pathologist: Sofi Hutchinson M.A., [facility] OPERATOR
[2025-04-11 12:31] LABS: Ammonia 40 umol/L (13-55)
--- NOTE | 2025-04-11 19:36 | PM.EVENT ---
Event Note Date of Service: 04/11/25 Event Note: GI Consult-Full note dictated-History from patient with her son, Henri, helping with interpreting, and from the EMR Imp: Resolved hepatic encephalopathy in 60 yo patient with underlying cirrhosis. She has no other signs of decompensation such as GI bleeding, ascites, or jaundice. She presently is back to her baseline normal mental status and her ammonia has also normalized. Rec: Continue Lactulose once or twice a day and have her titrate it so as to avoid significant diarrhea but to maintain normal mental status. I would hold off on Xifaxan for now, but that can always be added down the road if the lactulose is not working well enough to maintain a normal mental status and/or the dose of Lactulose needed is causing problematic diarrhea. She will follow up with [facility] as she sees them for her liver disease. Isa and her family were comfortable with this plan. Thanks Time Spent With Patient Time: Total time managing care of this patient today ____ minutes.
[2025-04-12] VITALS: BP 113/55; PULSE 58; RESP 18; TEMP 37.1; O2SAT 95
--- NOTE | 2025-04-12 00:03 | CONS_ITS ---
DATE OF SERVICE: 04/11/2025 REASON FOR CONSULTATION: Cirrhosis and hepatic encephalopathy. HISTORY OF PRESENT ILLNESS: History has been obtained from the patient with her son Henri helping to interpret, as well as from the medical record. The patient is a 60-year-old female with underlying history of known hepatitis C and cirrhosis. However, this had been very stable up until yesterday when she seemingly developed the acute onset of confusion. She was brought to the ER and found to have an elevated ammonia level of 105. She was treated with lactulose overnight and today has dramatically improved. The patient's family states that her mental status is back to normal. Prior to yesterday, she did not have any issues with confusion and has not had a history of hepatic encephalopathy, nor any other issues such as jaundice or increasing abdominal girth. Ultrasound of the abdomen done earlier this year was negative for ascites. She did have an upper endoscopy in February of 2024 that revealed only minimal varices, but did show what appears to have been a portal gastropathy. She has no history of GI bleeding. At the present time, she has been eating comfortably. She denies any dysphagia, nausea, vomiting, nor chronic heartburn. Her bowel movements have been looser since admission with lactulose, but there has been no hematochezia or melena. She was not using anything for hepatic encephalopathy at home and she had no history of that. Her medications at home included aspirin 81 mg, baclofen, citalopram, dexlansoprazole, Colace,Genvoya, vitamin D, meclizine, and oxycodone p.r.n. Her medications here in the hospital include albuterol inhaler p.r.n., baclofen, Genvoya, fluticasone propionate, lactulose t.i.d., meclizine, and omeprazole. PAST MEDICAL HISTORY: Cirrhosis in relation to hepatitis C. HIV infection. She reports previous surgeries including appendectomy and cholecystectomy. She has a previous history of a CVA. She has also had a . Negative colonoscopy in 2023. Upper endoscopy with small varices and portal gastropathy in 2023 with multiple small polyps, some of which were tubular adenomas. SOCIAL HISTORY: She is . She does not smoke nor use any significant alcohol. FAMILY HISTORY: Noncontributory. REVIEW OF SYSTEMS: GENERAL: Prior to yesterday, she had been doing well with good appetite and good energy. SKIN: Without rash or pruritus. CARDIAC: No chest pain. PULMONARY: No cough or hemoptysis. GI: As above. URINARY: No dysuria or hematuria. PHYSICAL EXAMINATION: GENERAL: The patient is pleasant, alert, cooperative and answers questions appropriately. SKIN: Warm and dry. HEENT: Anicteric sclerae. Moist mucous membranes. NECK: Supple. ABDOMEN: Soft, nondistended, nontender without any obvious ascites. EXTREMITIES: Without edema. NEUROLOGICAL: She is alert and oriented without asterixis at this time. LABORATORIES: Ammonia level 105 yesterday and 40 today. BUN 6, creatinine 1.1. Sodium 141, potassium 3.8. Total bilirubin is 1.8, AST 33, ALT 12, alkaline phosphatase 148, albumin 3.0. Abdominal ultrasound in September revealed cirrhosis, but no sign of liver mass, portal vein thrombosis, ascites, nor any significant splenomegaly. IMPRESSION: Given the patient's clinical history, it does appear that she definitely has some component of hepatic encephalopathy, which has now been rapidly corrected with the addition of lactulose. She seems to be back to baseline and is without any other complications such as jaundice, GI bleeding, or any sign of ascites or spontaneous bacterial peritonitis. At this point, we will continue current measures with lactulose, but titrate that to her bowel movements and mental status. I do not think she needs to be on Xifaxan at the present time, but clearly if she does not improve on lactulose in the future or cannot tolerate it due to problematic diarrhea she would then need to have Xifaxan added at that time. However at this point, she seems to have done well just with lactulose. She will follow up with [facility]. She has been seen in their office in the past regarding her liver disease. I do not think she needs any other intervention while she is here as an inpatient. She and her family are comfortable with the plan. Thank you for the consultation. MD YULISSA Zavala/CLEM / [id number]
[2025-04-12] MEDS: 0.9 % Sodium Chloride Flush 3 ML SYRINGE IVFLUSH ×2 (03:19→07:58)
[2025-04-12 03:47] VITALS: BP 111/56; PULSE 63; RESP 18; TEMP 37.1; O2SAT 95
[2025-04-12 07:22] VITALS: BP 129/58; PULSE 62; RESP 18; TEMP 36.8; O2SAT 95
[2025-04-12] MEDS: Elviteg/Cobi/Emtric/Tenofo Ala 150/150/200/10 TABLET 1 TAB PO (07:58)
--- NOTE | 2025-04-12 10:36 | PM.NEUROCN ---
History of Present Illness Data of Consult Service Date: 04/12/25 Primary Care Provider: Magali Reynoso MD HPI Reason for consult: Abnormal brain MRI [address] [address] [address] Scan Report Signed Patient: Althea Julio MR#: [id number] : 08/31/1932 Acct:[id number] Age/Sex: 89 / F ADM Date: 04/11/22 Loc: HO.ED 60 years old woman with past medical history significant for an event in 2008 described as a stroke. Her son stated that symptoms of stroke included confusion and eyes coming to the midline when she was taken to [facility] and had a dose of morphine for some reason. He also mentioned that she was overdose almost and became comatose and was intubated. Later she was given a diagnosis of stroke. She also suffered from chronic hep C and HIV on HAARTs, possible portal hypertensive gastropathy and small varices who was brought to the emergency department via ambulance after her family noted that she was confused. Apparently she was fine the night before and slept in the syndrome with a who noted around 07:00 that she was confused. She did not know where she was in what she was doing. There was no sign of seizure. Review of Systems Review of Systems: Prior to the day of symptoms there was no cold or flu, seizure-like episode, headache, or exposure to new medicine, chest pain shortness of breath or palpitation. PMFSH Past Medical History Medical History Abdominal pain Dysphagia Dysphagia Chronic idiopathic constipation HIV (human immunodeficiency virus infection) Chronic hepatitis C GERD with esophagitis Family History Family History Father No problems noted. Mother No problems noted. Surgical History Surgical History Hx of section Hx of colonoscopy History of esophagogastroduodenoscopy (EGD) Hx of cholecystectomy Hx of appendectomy Social History Social History Household Members: Spouse Housing: House Do you presently have visiting nurse or other home services: Yes ([employer] everyday) Alcohol intake: current Alcohol intake frequency: does not drink Patient Tobacco Use Status: Never used Tobacco Smoked in Last 30 Days: No Use of substances other than those prescribed or required for medical reasons: No Currently Displaying Signs/Symptoms of Drug Intoxication Withdrawal: No Advance Directives: No Advance Directives Information Provided: Yes Do you have a plan to hurt others: No Plan Recently lost weight without trying: No Eating poorly because of decreased appetite: No Nutrition Risks: No Nutritional Risk Patient : No Poor oral hygiene: No Meds Allergies Allergy/AdvReac Type Severity Reaction Status Date / Time ibuprofen (From Motrin) Allergy Intermediate RASH Verified 04/10/25 15:41 Sulfa (Sulfonamide Allergy Intermediate RASH Verified 04/10/25 15:41 Antibiotics) Active Medications: Current Medications Albuterol Sulfate (Albuterol Sulfate (0.083%) 2.5 Mg/3 Ml Vial.Neb) 2.5 mg INHALE Q4H PRN PRN Reason: Shortness Of Breath Or Wheezing Baclofen (Baclofen 10 Mg Tablet) 10 mg PO BID PRN PRN Reason: muscular pain, spasticity Elvitegravir/Cobicis/Emtricit/Tenof (Elviteg/Estrella/Emtric/Tenofo Ala 150/150/200/10 Tablet) 1 tab PO DAILY [facility] Last Admin: 04/12/25 07:58 Dose: 1 tab Escitalopram Oxalate (Escitalopram Oxalate 5 Mg Tablet) 5 mg PO DAILY [facility] Last Admin: 04/12/25 07:58 Dose: 5 mg Fluticasone Propionate (Fluticasone Propionate 250 Mcg Blst.W.Dev) 1 puff INHALE RBID [facility] Last Admin: 04/12/25 07:52 Dose: Not Given Lactulose (Lactulose 20 Gm/30 Ml Solution) 20 gm PO TID [facility] Last Admin: 04/12/25 08:02 Dose: Not Given Meclizine HCl (Meclizine Hcl 25 Mg Tablet) 25 mg PO TID [facility] Last Admin: 04/12/25 07:59 Dose: Not Given Omeprazole (Omeprazole 40 Mg Capsule.Dr) 40 mg PO DAILY@1630 [facility] Last Admin: 04/11/25 15:31 Dose: 40 mg Sodium Chloride (0.9 % Sodium Chloride Flush 3 Ml Syringe) [facility] Admin: 04/12/25 07:58 Dose: 3 ml Home Medications ?Medication ?Instructions ?Recorded ?Confirmed ?Last Taken ?Type aspirin 81 mg tablet,delayed 81 mg PO DAILY 08/11/20 04/10/25 04/09/25 History release (Adult Low Dose Aspirin) elviteg 150 mg-cob 150 mg-emtricit 1 tab PO DAILY 08/11/20 04/10/25 04/09/25 History 200 mg-tenofo alafenam 10 mg tablet (Genvoya) meclizine 25 mg tablet 25 mg PO TID 08/11/20 04/10/25 04/09/25 History albuterol sulfate 2.5 mg/3 mL 2.5 mg inhalation Q4-6H PRN 07/19/22 04/10/25 Unknown History (0.083 %) solution for nebulization Shortness Of Breath Or Wheezing baclofen 10 mg tablet 10 mg PO BID PRN Pain 07/19/22 04/10/25 Unknown History ergocalciferol (vitamin D2) 1,250 1,250 mcg PO QWEEK 07/19/22 04/10/25 Unknown History mcg (50,000 unit) capsule oxycodone 5 mg tablet 10 mg PO DAILY PRN moderate pain 07/19/22 04/10/25 Unknown History mometasone 200 mcg/actuation HFA 1 puff inhalation BID 10/25/23 04/10/25 04/09/25 History aerosol inhaler (Asmanex HFA) albuterol sulfate 90 mcg/actuation 2 puff inhalation Q4-6H PRN 04/10/25 04/10/25 Unknown History aerosol inhaler (Ventolin HFA) Shortness Of Breath Or Wheezing bisacodyl 5 mg tablet,delayed 10 mg PO BEDTIME PRN Constipation 04/10/25 04/10/25 Unknown History release (Dulcolax (bisacodyl)) citalopram 10 mg tablet 10 mg PO DAILY 04/10/25 04/10/25 04/09/25 History Physical Exam Vital Signs: Vital Signs: Last Vital Signs Temp 98.3 F 04/12/25 07:22 Pulse 62 04/12/25 07:22 Resp 18 04/12/25 07:22 BP 129/58 L 04/12/25 07:22 Pulse Ox 95 04/12/25 07:22 O2 Del Method Room Air 04/12/25 07:22 O2 Flow Rate 3 04/11/25 03:53 BMI result Body Mass Index 29.3 Neuro: Other: She is alert and awake with normal spontaneity of speech fluency comprehension and affect. Face is symmetrical. Right eye vision is poor. She is able to see with the left eye. There was no asterixis. Deep tendon reflexes are absent. No focal weakness is noted. Speech is normal. Plantars are flexor. Results Labs 04/11/25 06:29 04/11/25 06:29 Labs: Exam: Nonenhanced MRI brain. Comparison: Same-day CT brain and CTA head and neck. Findings: There is no cerebral edema or mass effect. White matter reveals scattered areas of white matter T2 hyperintensity, nonspecific although possibly related to chronic microangiopathic disease. Additionally, there is minimal left frontal white matter edema (8; 17), likely along the tract of the what appears to be a developmental venous anomaly (9; 17), anatomic variant. Developmental venous anomaly is confirmed on same-day CTA head (seen on 15; 60 of the that exam). Diffusion weighted imaging reveals no restricted diffusion or MR evidence of acute ischemia. Susceptibility weighted imaging reveals no susceptibility artifact or evidence of intracranial hemorrhage. No sellar or parasellar lesions. Ventricular size and configuration are within normal limits. Cerebral cisterns are preserved. No significant signal abnormality seen within the paranasal sinuses or mastoid air cells. Preserved flow signal voids are present within visualized intracranial vasculature. 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 Impression: 1. No MR evidence of acute ischemia. 2. Mild left frontal white matter edema which appears to be along the tract of a left developmental venous anomaly. There is no evidence of venous thrombosis on same-day CTA. If further imaging evaluation is clinically warranted, consider gadolinium enhancement MRI, to determine whether there is any enhancement in this region. [address] [address] [address] Scan Report Signed Patient: Isa Carr MR#: [id number] : 1965 Acct:[id number] Age/Sex: 60 / F ADM Date: 04/10/25 Loc: HO.ED Attending Dr: Ordering Physician: Dov Gil MD Date of Service: 04/10/25 Procedure(s): CT angio head neck STROKE Accession Number(s): [id number] cc: Dov Gil MD; Magali Reynoso MD~ Report Number: [id number]: Total DLP = 647.00 mGy-cm Reason for Exam: aphasia EXAMINATION: CT ANGIOGRAM HEAD AND NECK CLINICAL INFORMATION: Aphasia, rule out stroke. COMPARISON: CT head December 25, 2017 and same day. TECHNIQUE: CT test bolus sequences and head and neck intravenous bolus administration 70mL of Omnipaque 350. Helical imaging was performed in the axial plane from the aortic arch to the skull vertex. The data was processed at the medical lab technologist's workstation for generation of MIP sequences. Angled MIPs and volume rendered reformatted images were also generated at an offline 3D workstation. Stenoses are assessed in accordance with NASCET criteria unless otherwise indicated. This CT examination was performed using dose optimization techniques as appropriate, variously including the following: *Automated exposure control *Adjustment of mA and/or kV according to patient size (this includes techniques or standardized protocols for targeted exams where dose is matched to indication/reason for exam; i.e. extremities or head) *Use of iterative reconstruction technique FINDINGS: NECK CTA: -AORTIC ARCH: Normal in caliber. Mild atheromatous calcification. Three-vessel branching pattern. -GREAT VESSEL ORIGINS: Widely patent. No stenosis. -RIGHT COMMON CAROTID ARTERY: Tortuous in course and normal caliber to the level of the bifurcation. -CERVICAL RIGHT INTERNAL CAROTID ARTERY: Normal opacification without focal stenosis or occlusion. -LEFT COMMON CAROTID ARTERY: Mildly tortuous in course and normal in caliber to the level of the bifurcation. -CERVICAL LEFT INTERNAL CAROTID ARTERY: Normal opacification without focal stenosis or occlusion. -CERVICAL RIGHT VERTEBRAL ARTERY: Small. Normal in course and caliber into the skull base. -CERVICAL LEFT VERTEBRAL ARTERY: Left dominant. Normal in course and caliber into the skull base. OTHER, SOFT TISSUES: -No lymphadenopathy or mass. No abnormal fluid collection or soft tissue swelling. -Normal thyroid. -Imaged superior mediastinal structures normal. -Imaged lung apices clear. CTA OF THE BRAIN: -INTRACRANIAL INTERNAL CAROTID ARTERIES: No focal stenosis or occlusion. -RIGHT ANTERIOR CEREBRAL ARTERY: Normal A1 segment.. Normal arborization of the distal segments. -LEFT ANTERIOR CEREBRAL ARTERY: Absent A1 segment.. Normal arborization of the distal segments. -ANTERIOR COMMUNICATING ARTERY: Normal in supply bilateral ACAs. -RIGHT MIDDLE CEREBRAL ARTERY: Normal M1 segment of the MCA without focal stenosis or occlusion. Normal bifurcation. Normal arborization of the distal segments. -LEFT MIDDLE CEREBRAL ARTERY: Normal M1 segment of the MCA without focal stenosis or occlusion. Normal bifurcation. Normal arborization of the distal segments. However, there is a blush of enhancement in the posterior left frontal lobe consistent with developmental venous anomaly. -RIGHT VERTEBRAL ARTERY V4: Normal in course and caliber. Normal PICA branch. -LEFT VERTEBRAL ARTERY V4: Normal in course and caliber. Normal PICA branch. -BASILAR ARTERY: Normal without focal stenosis or occlusion. Normal appearance of the proximal superior cerebellar arteries. Normal basilar tip. -RIGHT POSTERIOR CEREBRAL ARTERY: Normal P1 segment. 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 -LEFT POSTERIOR CEREBRAL ARTERY: Normal P1 segment. 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 -POSTERIOR COMMUNICATING ARTERIES: Threadlike Normal opacification of the superior sagittal, straight, transverse, and sigmoid sinuses. No venous thrombosis. No space-occupying hemorrhage or definite evolving infarct. CT/CT angio head neck STROKE IMPRESSION: CTA NECK: No hemodynamically significant stenosis. CTA HEAD: No hemodynamically significant stenosis or occlusion. Microbiology Microbiology Results: Laboratory Tests 04/10/25 04/11/25 15:37 12:17 Ammonia 105 H 40 Assessment and Plan (1) Abnormal brain MRI: Status: Acute Brain MRI has to distinct findings: There few small chronic ischemic cerebral infarctions. There was also a left frontal cortical signal abnormality probably venous angioma. If there was a previous MRI of brain, comparison to that MRI can easily help us figure out of any further attention is needed or not. If not, contrast enhanced MRI of brain is recommended to define this lesion. (2) Hepatic encephalopathy: Status: Acute 60 years old woman with complex underlying medical history including history of hep C in HIV disease and liver disease presented with encephalopathy type of symptoms likely due to hyperammonemia. Now that her metabolic numbers and ammonia level was better, she was also better. Mainstay of management is adjustment of medicines to avoid high ammonia level. Procedures Date of Service Date of Service: 04/12/25
[2025-04-12 11:04] VITALS: BP 129/60; PULSE 63; RESP 18; TEMP 36.5; O2SAT 97
--- NOTE | 2025-04-12 12:56 | PM.DS ---
DS: Providers Provider Date of Service: 04/12/25 Date of admission: 04/10/25 19:39 Date of discharge: 04/12/25 Primary care physician: Magali Reynoso MD Consults: 04/10/25 20:19 Consult to Gastroenterology Routine Consulting Provider: [facility] Reason for consultation: Elevated ammonia, encephalopathy Has provider been notified: No DS: Diagnosis Discharge Diagnosis (1) Hepatic encephalopathy: Status: Acute (2) Abnormal brain MRI: Status: Acute DS: Summary Hospital Course Hospital Course: Admission HPI Chief Complaint: confusion Isa Carr is a 60 years old woman with past medical history significant for old CVA (2008), chronic hep C and HIV on HAARTs, possible portal hypertensive gastropathy and small varices who was brought to the emergency department via ambulance after her family noted that she was confused since this morning. The patient experience headache but this resolved. Per family the patient refused to eat. No speech difficulty, focal weakness, fever or loss of consciousness reported by family. patient denied chest pain, shortness on breath, abdominal pain, nausea or vomiting. Patient has no history of hepatic encephalopathy. She has chronic blindness. In the ED, she was found to have normal vital signs. WBC count is 6.4. Hemoglobin 12.7 and platelets 64. INR is 1.1. There is no respiratory acidosis. UA is not consistent with UTI. Urine drug screen and ethanol levels Are not detected. Head CT scan showed no acute intracranial hemorrhage. It did show small vessel occlusive disease with likely prior stroke of the right MCA distribution. Head and neck CTA showed no hemodynamically significant stenosis or occlusion. CXR is negative. Brain MRI showed mild left frontal white matter edema with appear to be along the track of the left developmental venous anomaly with no evidence of venous thrombosis. ED tx: Lactulose 20 g p.o., NS 1 L bolus. Hospital course: Patient presented with confusion and unresponsiveness and found to have ammonia level of 105 with underlying Hep C and HiV, there ws no evidence of acute infectious process. Toxicology screen is negative. CT of the head was read as follow: No acute intracranial hemorrhage. Small vessel occlusive disease disease with likely prior stroke, right MCA distribution. an MRI was subsequently done showing . No MR evidence of acute ischemia. 2. Mild left frontal white matter edema which appears to be along the tract of a left developmental venous anomaly. There is no evidence of venous thrombosis on same-day CTA. If further imaging evaluation is clinically warranted, consider gadolinium enhancement MRI, to determine whether there is any enhancement in this region. Neurology was consulted and upon review of her presentation, neurologist recommend conservative managment with focus on keep her ammonia level down and prevent future occurrence of hepatic encephalpathy. Patient remains lucid at this time. Patient was also seen by GI with recommendation for lactulose once or twice a day . her ammonia level normalized by the next day to 40 and she is lucid and back to baseline and isbeing discharged home. There was no sings of acute infection. Time Attestation Discharge Coordination Time (in mins): 40 Quality: Safe Use of Opioids Does Pt have an Active Cancer Diagnosis on the Problem List?: No Quality: Stroke Does the patient have a stroke diagnosis?: No Physical Exam Vital Signs: Vital Signs: Selected Entries 04/12/25 11:04 Temperature 97.7 F Pulse Rate 63 Respiratory Rate 18 Blood Pressure 129/60 Oxygen Delivery Me thod Room Air Const: Other: General: AO X 3, no acute distress Resp: CTA bilateral CVS: S1,S2,RRR GI: +BS, NT, no distention Skin: No rash Neuro: motor grossly intact Psych: appropriate affect DS: Data Data Completed and Pending Labs on day of discharge: Laboratory Results - last 24 hr 04/10/25 04/10/25 04/10/25 15:01 15:04 15:05 WBC 6.4 RBC 3.97 L Hgb 12.7 Hct 36.4 L MCV 91.7 MCH 32.0 MCHC 34.9 RDW 13.4 Plt Count 64 L MPV 11.6 Immature Gran % (Auto) 0.2 Neut % (Auto) 40.0 L Lymph % (Auto) 31.6 [place] % (Auto) 7.8 Eos % (Auto) 18.2 H Baso % (Auto) 2.2 H Lymph # (Auto) 2.0 [place] # (Auto) 0.5 Eos # (Auto) 1.2 H Baso # (Auto) 0.1 Abs Immat Gran (auto) 0.01 Absolute Neuts (auto) 2.6 Absolute Nucleated RBC 0.000 Nucleated RBC % (auto) 0.0 PT 14.0 H Whole Blood PT 13.4 INR 1.1 Whole Blood INR 1.1 VBG pH VBG pCO2 VBG pO2 VBG HCO3 VBG O2 Saturation VBG Base Excess Sodium 141 Potassium 3.9 Chloride 112 H Carbon Dioxide 24 Anion Gap 9 L BUN 9 Creatinine 1.09 Estim Creat Clear Calc TNP Estimated GFR 51 POC Glucose 130 H Random Glucose 141 H Calcium 9.0 Magnesium Total Bilirubin 1.9 H AST 37 H ALT 16 Alkaline Phosphatase 172 H Ammonia Troponin I High Sens < 2.7 Total Protein 7.1 Albumin 3.3 L Urine Color Urine Appearance Urine pH Ur Specific [place] Urine Protein Urine Glucose (UA) Urine Ketones Urine Blood Urine Nitrite Ur Leukocyte Esterase Urine RBC Urine WBC Ur Squamous Epith Cells Urine Bacteria Hyaline Casts Stool Occult Blood Urine Opiates Screen Ur Buprenorphine Scrn Ur Oxycodone Screen Urine Methadone Screen Urine Fentanyl Screen Ur Barbiturates Screen Ur Phencyclidine Scrn Ur Amphetamines Screen U Benzodiazepines Scrn Urine Cocaine Screen U Marijuana (THC) Screen Ethyl Alcohol < 10 04/10/25 04/10/25 04/10/25 15:37 15:44 19:12 WBC RBC Hgb Hct MCV MCH MCHC RDW Plt Count MPV Immature Gran % (Auto) Neut % (Auto) Lymph % (Auto) [place] % (Auto) Eos % (Auto) Baso % (Auto) Lymph # (Auto) [place] # (Auto) Eos # (Auto) Baso # (Auto) Abs Immat Gran (auto) Absolute Neuts (auto) Absolute Nucleated RBC Nucleated RBC % (auto) PT Whole Blood PT INR Whole Blood INR VBG pH 7.40 VBG pCO2 38 VBG pO2 55 VBG HCO3 23 VBG O2 Saturation 80.0 VBG Base Excess -0.6 Sodium Potassium Chloride Carbon Dioxide Anion Gap BUN Creatinine Estim Creat Clear Calc Estimated GFR POC Glucose Random Glucose Calcium Magnesium Total Bilirubin AST ALT Alkaline Phosphatase Ammonia 105 H Troponin I High Sens Total Protein Albumin Urine Color Yellow Urine Appearance Clear Urine pH 7.0 Ur Specific [place] >= 1.030 H Urine Protein Negative Urine Glucose (UA) 250 H Urine Ketones Negative Urine Blood Negative Urine Nitrite Negative Ur Leukocyte Esterase Negative Urine RBC 0-2 Urine WBC 0-5 Ur Squamous Epith Cells 0-2 Urine Bacteria None Seen Hyaline Casts 0-2 Stool Occult Blood Urine Opiates Screen Not Detected Ur Buprenorphine Scrn Not Detected Ur Oxycodone Screen Not Detected Urine Methadone Screen Not Detected Urine Fentanyl Screen Not Detected Ur Barbiturates Screen Not Detected Ur Phencyclidine Scrn Not Detected Ur Amphetamines Screen Not Detected U Benzodiazepines Scrn Not Detected Urine Cocaine Screen Not Detected U Marijuana (THC) Screen Not Detected Ethyl Alcohol 04/11/25 04/11/25 04/11/25 04:42 06:29 09:50 WBC 6.5 RBC 4.00 L Hgb 12.6 Hct 36.8 L MCV 92.0 MCH 31.5 MCHC 34.2 RDW 13.2 Plt Count 59 L MPV 11.8 Immature Gran % (Auto) 0.2 Neut % (Auto) 37.7 L Lymph % (Auto) 30.9 [place] % (Auto) 11.7 H Eos % (Auto) 17.8 H Baso % (Auto) 1.7 Lymph # (Auto) 2.0 [place] # (Auto) 0.8 Eos # (Auto) 1.2 H Baso # (Auto) 0.1 Abs Immat Gran (auto) 0.01 Absolute Neuts (auto) 2.4 Absolute Nucleated RBC 0.000 Nucleated RBC % (auto) 0.0 PT Whole Blood PT INR Whole Blood INR VBG pH VBG pCO2 VBG pO2 VBG HCO3 VBG O2 Saturation VBG Base Excess Sodium 141 Potassium 3.8 Chloride 114 H Carbon Dioxide 21 L Anion Gap 10 L BUN 6 L Creatinine 1.09 Estim Creat Clear Calc 49.9 Estimated GFR 51 POC Glucose 117 H Random Glucose 119 H Calcium 8.8 Magnesium 2.0 Total Bilirubin 1.8 H AST 33 H ALT 12 Alkaline Phosphatase 148 H Ammonia Troponin I High Sens Total Protein 6.7 Albumin 3.0 L Urine Color Urine Appearance Urine pH Ur Specific [place] Urine Protein Urine Glucose (UA) Urine Ketones Urine Blood Urine Nitrite Ur Leukocyte Esterase Urine RBC Urine WBC Ur Squamous Epith Cells Urine Bacteria Hyaline Casts Stool Occult Blood POSITIVE Urine Opiates Screen Ur Buprenorphine Scrn Ur Oxycodone Screen Urine Methadone Screen Urine Fentanyl Screen Ur Barbiturates Screen Ur Phencyclidine Scrn Ur Amphetamines Screen U Benzodiazepines Scrn Urine Cocaine Screen U Marijuana (THC) Screen Ethyl Alcohol Discharge Plan Discharge Anticipated Discharge Date/Time: 04/12/25 12:52 Patient Disposition: Home, Self-Care Discharge Diagnosis: Hepatic Encephalopathy Referrals: Magali Reynoso MD [Primary Care Provider, Internal Medicine] - 1 Week Discharge Medications: New lactulose 10 gram/15 mL solution 20 g PO DAILY Qty: 600 0RF Continued docusate sodium 100 mg capsule 100 mg PO DAILY Qty: 90 0RF citalopram 10 mg tablet 10 mg PO DAILY albuterol sulfate [Ventolin HFA] 90 mcg/actuation HFA aerosol inhaler 2 puff inhalation Q4-6H PRN (Reason: Shortness Of Breath Or Wheezing) bisacodyl [Dulcolax (bisacodyl)] 5 mg tablet,delayed release (DR/EC) 10 mg PO BEDTIME PRN (Reason: Constipation) meclizine 25 mg tablet 25 mg PO TID aspirin [Adult Low Dose Aspirin] 81 mg tablet,delayed release (DR/EC) 81 mg PO DAILY Genvoya [phone] mg tablet 1 tab PO DAILY Rx Instructions: must administer with a meal/food oxycodone 5 mg tablet 10 mg PO DAILY PRN (Reason: moderate pain) baclofen 10 mg tablet 10 mg PO BID PRN (Reason: Pain) ergocalciferol (vitamin D2) 1,250 mcg (50,000 unit) capsule 1,250 mcg PO QWEEK albuterol sulfate 2.5 mg /3 mL (0.083 %) solution for nebulization 2.5 mg inhalation Q4-6H PRN (Reason: Shortness Of Breath Or Wheezing) Asmanex HFA 200 mcg/actuation HFA aerosol inhaler 1 puff inhalation BID Dexilant 60 mg capsule,biphase delayed releas 60 mg PO DAILY 90 Days Qty: 90 3RF Discharge Orders: Discharge Order (Routine); Ordered 04/12/25 Ordered By: Hao Henderson Diet: Advance to usual diet Activity on Discharge: As tolerated Stand Alone Forms: Patient Portal Discharge page Print Language: Greek Care Plan Goals: recovery from hepatic encephalopathy Health Concerns: Hepatic Encephalopathy Plan of Treatment: Take Lactulose as recommended and follow up with your Doctor in a week hold it if you have diarrhea Assessment: see above
--- NOTE | 2025-04-12 16:20 | MHC.CM.PN ---
PT LIVES WITH HER S/O AND HAS DAILY [employer] TO ASSIST WITH HER CARE COPY OF HCP REQUESTED PCP: ANABELA SOUZA PT DISCHARGED HOME TODAY WITH RESUMPTION OF [employer] VIA PRIVATE TRANSPORT
== END 2025-04-12 14:52 | disposition home or self-care (01) ==
LOC: HO.ED 16:19 → HO.EDOVER 19:47 → HO.IMC 20:11
PROVIDERS: Emergency Medicine; Admitting Provider Internal Medicine; Emergency Provider Student in an Organized Health Care Education/Training Program; PCP Student in an Organized Health Care Education/Training Program; Visit Provider Internal Medicine
DX: K76.82 Hepatic encephalopathy (principal); Q28.3 Other malformations of cerebral vessels; D69.59 Other secondary thrombocytopenia; B18.2 Chronic viral hepatitis C; Z21 Asymptomatic human immunodeficiency virus [HIV] infection status; F39 Unspecified mood [affective] disorder; K76.6 Portal hypertension; K31.89 Other diseases of stomach and duodenum; Z86.73 Personal history of transient ischemic attack (TIA), and cerebral infarction without residual deficits; Z79.82 Long term (current) use of aspirin; Z79.899 Other long term (current) drug therapy
CPT/HCPCS: 36415; 70450; 70496; 70498; 70551; 71045; 80053; 80307; 81001; 82140; 82272; 82803; 82947; 83735; 84484; 85025; 85610; 92610; 93005; 94640; 99285; J0616

== ENCOUNTER → 2025-04-10 14:54 | Outpatient (BNV) | payer MEDICAID, SELFPAY | PROVIDERS: Admitting Provider Internal Medicine; Emergency Provider Student in an Organized Health Care Education/Training Program; PCP Student in an Organized Health Care Education/Training Program; Visit Provider Internal Medicine Cardiovascular Disease | DX: R94.31 Abnormal electrocardiogram [ECG] [EKG] (principal); I63.9 Cerebral infarction, unspecified | CPT/HCPCS: 93010 ==

== ENCOUNTER → 2025-04-10 15:26 | Outpatient (BNV) | payer MEDICAID, SELFPAY | PROVIDERS: Emergency Provider Emergency Medicine; Visit Provider Radiology Diagnostic Radiology | DX: R47.01 Aphasia (principal); Q28.3 Other malformations of cerebral vessels; R90.82 White matter disease, unspecified; I67.82 Cerebral ischemia; R07.9 Chest pain, unspecified | CPT/HCPCS: 70450; 70496; 70498; 70551; 71045 ==

== ENCOUNTER → 2025-04-10 19:39 | Outpatient (BNV) | payer MEDICAID, SELFPAY | PROVIDERS: Admitting Provider Internal Medicine; Emergency Provider Student in an Organized Health Care Education/Training Program; PCP Student in an Organized Health Care Education/Training Program; Visit Provider Internal Medicine | DX: K76.82 Hepatic encephalopathy (principal); B18.2 Chronic viral hepatitis C; B20 Human immunodeficiency virus [HIV] disease; R90.89 Other abnormal findings on diagnostic imaging of central nervous system | CPT/HCPCS: 99223; 99232 ==

== ENCOUNTER → 2025-04-10 19:39 | Outpatient (BNV) | payer MEDICAID, SELFPAY | PROVIDERS: Admitting Provider Internal Medicine; Emergency Provider Student in an Organized Health Care Education/Training Program; PCP Student in an Organized Health Care Education/Training Program; Visit Provider Psychiatry & Neurology Neurology | DX: R90.89 Other abnormal findings on diagnostic imaging of central nervous system (principal); K76.82 Hepatic encephalopathy | CPT/HCPCS: 99223 ==

== ENCOUNTER 2025-04-17 11:05 | Outpatient (AMB) | payer MEDICAID, SELFPAY ==
--- NOTE | 2025-04-17 11:15 | MHC.OFFVIS ---
Vital Signs 04/17/25 11:23 Height 5 ft 2 in BP 133/71 Blood Pressure Location Rt brachial Position Sitting Pulse 65 Intake Visit Reasons: seen in ER hepatic encephalopathy Intake Note: Isa returns in follow up of ER visit. CC:PT seen at the hospital for hepatic encephalopathy. She reports that she still feels very weak but denies having any GI symptoms today. Contract Design Agent Required: Yes Contract Design Agent Language: Northern Irish Accompanied by: Self / Same As Patient Allergies ibuprofen (From Motrin) Allergy (Intermediate, Verified 04/17/25 11:28) RASH Sulfa (Sulfonamide Antibiotics) Allergy (Intermediate, Verified 04/17/25 11:28) RASH HPI HPI seen in ER hepatic encephalopathy: Details: Assessment & Plan (1) Chronic hepatitis C with HIV infection: Comment: 08/04/2505/ 10:2510:3611:05 Plt Count 63 L Total Bilirubin 1.6 H Direct Bilirubin 0.5 AST 56 H ALT 30 Alkaline Phosphatase 242 H Liver Fibrosis Stage F4 HCV RNA Genotype LiPA 3 HCV RNA (PCR) IUs/ml [id number] H HCV RNA PCR log IUs/ml 5.85 H ULTRASOUND OF THE ABDOMEN Comparison: US/SD/SR - US ABDOMEN COMPLETE - 03/21/24 11:52 EDT Findings: The visualized pancreas is normal. The aorta and inferior vena cava are normal caliber. The liver is small measuring 9 cm in length. There is coarsening of liver echotexture and irregularity of the liver cortex. There is no intrahepatic bile duct dilatation. The common duct is 2 mm in diameter. Status post cholecystectomy. The main portal vein is antegrade. The right kidney is 9.1 cm in length. There is a 9 mm simple appearing cyst within the upper pole of the right kidney. The left kidney is 8.9 cm in length. The spleen is borderline in size, measuring 13.2 cm in length. No ascites. IMPRESSION: 1. There are changes of liver cirrhosis. Code(s): B20 - Human immunodeficiency virus [HIV] disease; B18.2 - Chronic viral hepatitis C Category: Medical Plan Northern Irish # translates per patient request She is doing well on her Dexilant for GERD in her constipation seems to have resolved. I explain the findings and that she has stage 4 liver disease and given her platelets and her other liver functions she may have limited time before she decompensates and has end stage liver failure. I let her know that I reached out to Dr. Dr. Hill's office and they agreed that they would need to be the ones to treat her due to the co infected HIV. They have offered to do so and the patient has an appointment with them next week. I let her know that I will not bother her about this after this appointment, I certainly am open to answering questions for her but I will leave the treatment decision between her and Dr. Hill. I simply want to make sure there has been no miscommunication due to language or cultural barriers about the importance of treating her now while her liver is still stable to preserve her ongoing health. She and her are able to repeat verbalize understanding at this point. She continues to do well on her Dexilant and her constipation does not seem to have return. Return office visit in 6 months Medications: Refilled dexlansoprazole (Dexilant) 60 mg PO DAILY 90 caps 3RF 90 days REVIEW OF HOSPITAL ADMISSION INFORMATION 04/10/2025-04/12/2025 GI consult-[facility] 04/11/2025 Imp: Resolved hepatic encephalopathy in 60 yo patient with underlying cirrhosis. She has no other signs of decompensation such as GI bleeding, ascites, or jaundice. She presently is back to her baseline normal mental status and her ammonia has also normalized. Rec: Continue Lactulose once or twice a day and have her titrate it so as to avoid significant diarrhea but to maintain normal mental status. I would hold off on Xifaxan for now, but that can always be added down the road if the lactulose is not working well enough to maintain a normal mental status and/or the dose of Lactulose needed is causing problematic diarrhea. She will follow up with [facility] as she sees them for her liver disease. Isa and her family were comfortable with this plan. Thanks DISCHARGE SUMMARY Hospital course: Patient presented with confusion and unresponsiveness and found to have ammonia level of 105 with underlying Hep C and HiV, there ws no evidence of acute infectious process. Toxicology screen is negative. CT of the head was read as follow: No acute intracranial hemorrhage. Small vessel occlusive disease disease with likely prior stroke, right MCA distribution. an MRI was subsequently done showing . No MR evidence of acute ischemia. 2. Mild left frontal white matter edema which appears to be along the tract of a left developmental venous anomaly. There is no evidence of venous thrombosis on same-day CTA. If further imaging evaluation is clinically warranted, consider gadolinium enhancement MRI, to determine whether there is any enhancement in this region. Neurology was consulted and upon review of her presentation, neurologist recommend conservative managment with focus on keep her ammonia level down and prevent future occurrence of hepatic encephalpathy. Patient remains lucid at this time. Patient was also seen by GI with recommendation for lactulose once or twice a day . her ammonia level normalized by the next day to 40 and she is lucid and back to baseline and isbeing discharged home. There was no sings of acute infection. Laboratory Tests 02/17/25 04/10/25 04/11/25 09:41 15:05 06:29 WBC 6.5 Hgb 12.6 Hct 36.8 L Plt Count 78 L 64 L 59 L Estimated GFR 51 Total Bilirubin 1.8 H AST 33 H ALT 12 Alkaline Phosphatase 148 H BRAIN MRI 04/10/2025 Findings: There is no cerebral edema or mass effect. White matter reveals scattered areas of white matter T2 hyperintensity, nonspecific although possibly related to chronic microangiopathic disease. Additionally, there is minimal left frontal white matter edema (8; 17), likely along the tract of the what appears to be a developmental venous anomaly (9; 17), anatomic variant. Developmental venous anomaly is confirmed on same-day CTA head (seen on 15; 60 of the that exam). Diffusion weighted imaging reveals no restricted diffusion or MR evidence of acute ischemia. Susceptibility weighted imaging reveals no susceptibility artifact or evidence of intracranial hemorrhage. No sellar or parasellar lesions. Ventricular size and configuration are within normal limits. Cerebral cisterns are preserved. No significant signal abnormality seen within the paranasal sinuses or mastoid air cells. Preserved flow signal voids are present within visualized intracranial vasculature. 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 Impression: 1. No MR evidence of acute ischemia. 2. Mild left frontal white matter edema which appears to be along the tract of a left developmental venous anomaly. There is no evidence of venous thrombosis on same-day CTA. If further imaging evaluation is clinically warranted, consider gadolinium enhancement MRI, to determine whether there is any enhancement in this region. TODAY'S VISIT Northern Irish # tele box Apparently, she was admitted for confusion and found to have an elevated ammonia and treated for hepatic encephalopathy likely secondary to her COVID infection HIV/hepatitis. [facility] Medical History Abdominal pain Dysphagia Dysphagia Chronic idiopathic constipation HIV (human immunodeficiency virus infection) Chronic hepatitis C GERD with esophagitis Surgical History Hx of section Hx of colonoscopy History of esophagogastroduodenoscopy (EGD) Hx of cholecystectomy Hx of appendectomy Family History Father No problems noted. Mother No problems noted. 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) Alcohol intake: current Alcohol intake frequency: does not drink Patient Tobacco Use Status: Never used Tobacco service: No Review of Systems Const Denies fatigue, Denies fever(s), Denies night sweats, Denies poor appetite, Reports weight gain and Denies weight loss Eyes Details: glasses Reports requires corrective lenses ENT Reports Normal hearing present, Denies dental pain, Denies dysphagia, Denies hearing loss, Denies mouth pain, Denies odynophagia, Denies throat swelling, Denies tongue swelling and Reports other (Dentition adequate) Card Reports no additional complaints Resp Reports no additional complaints GI Details: Denies abdominal pain, Denies melena, Denies bloating, Denies hematochezia, Reports constipation, Denies GI cramping, Denies dysphagia, Denies excessive flatus, Denies early satiety, Reports heartburn, Denies diarrhea, Denies nausea, Denies odynophagia, Denies vomiting and Denies hematemesis Skin/Breast Denies pruritus, Denies lesions, Denies rash and Denies jaundice Neuro Reports Normal hearing present, Denies Abnormal speech present and Reports confusion Psych Reports confusion Endo Denies fatigue Aller/Immun Denies throat swelling and Denies tongue swelling Physical Exam Vital Signs: Last Vital Signs Pulse 65 04/17/25 11:23 BP 133/71 04/17/25 11:23 Const General: cooperative, no acute distress, well developed, confusion and well groomed Nutritional Appearance: well nourished and obese Orientation/consciousness: oriented to person, oriented to place, oriented to time and confusion Limitations: language barrier and other limitations HEENT Head: Yes normocephalic and Yes atraumatic Eyes General: appearance normal, both eyes and all related structures Pupils: Equal, round and reactive pupils present Neck Neck: Yes normal visual inspection and Yes no lymphadenopathy Thyroid: Thyroid normal Resp Effort & Inspection: normal respiratory effort and able to speak in complete sentences Auscultation: clear to auscultation bilaterally Cardio Rate: regular rate Rhythm: regular rhythm Heart sounds: Normal, physiologic split S2 sound present Peripheral pulses: radial pulses present and posterior tibial pulses present GI Inspection: No distended, No Abdominal panniculus present, Yes obesity and No caput medusae present Palpation (GI): Soft to palpation, nontender, no guarding, not rigid, no hepatomegaly and No Ascites present Percussion: Yes normal to percussion Auscultation: normal bowel sounds Rectal Exam - Female: deferred Abdomen image:  1. Surgical scar Skin General skin exam: no rashes or lesions noted, turgor normal, skin not dry, no jaundice, No spider nevi and no striae Rashes: no rashes Nails: normal Neuro General: oriented to person, oriented to place, oriented to time and confusion Cranial nerves: Yes Equal, round and reactive pupils present and Yes Normal hearing present Speech: No Abnormal speech present Extrem General: Yes normal to inspection, No clubbing, No cyanosis and No edema Psych Appearance: grossly normal and well kempt Mental Status: mental status grossly normal Speech and movement: Normal speech and movement present Affect: normal affect Attitude: cooperative Thought process: not confabulating and Impoverished thought process present Thought content: Normal thought content present Insight: Limited insight present (Psych) Judgement: Limited judgement present (Psych) Assessment & Plan Assessment & Plan (1) Chronic hepatitis C: Code(s): B18.2 - Chronic viral hepatitis C Category: Medical (2) Hepatic encephalopathy: Code(s): K76.82 - Hepatic encephalopathy Category: Medical (3) Hepatic encephalopathy: Code(s): K76.82 - Hepatic encephalopathy Category: Medical (4) Chronic hepatitis C: Code(s): B18.2 - Chronic viral hepatitis C Category: Medical Plan [place] # tele box Apparently, she was admitted for confusion and found to have an elevated ammonia and treated for hepatic encephalopathy likely secondary to her COVID infection HIV/hepatitis. Unfortunately, by have counseled karen extensively over the last couple of years about treating her hepatitis C infection. She had difficulty understanding how it could be hurting her when she felt generally well. This was complicated by the fact that it needed to be treated by Infectious Disease due to her COVID infected status. If she did treat the hepatitis-C, and if she has a sustained viral response, this would be extremely encouraging for her future good health. Subjective Follow-up after recent hospitalization for elevated ammonia attributed to underlying HIV/hepatitis C?related liver disease. Patient reports completing a 3-month oral hepatitis C pill regimen, finishing last month, without subsequent blood work since completion. However, jessica is not well acquainted with her medications so she can not give me the name and it is not 100% sure that this was anti-retroviral therapy. Currently taking lactulose as prescribed after hospital discharge and feels it helps keep her thinking clear. She feels overall better, with some fatigue and back discomfort she attributes to prolonged bedrest in the hospital. She is attempting dietary changes (smaller portions, avoiding ?junk? foods) and expresses a desire to lose weight. Relevant Past Medical, Social, and Family History - Hepatitis C with recent completion of 3-month oral antiviral therapy (ended last month). Objective - Abdominal exam: Bowel sounds present; palpation over the liver region without concerning findings; no focal tenderness noted by examiner; no overt abnormalities appreciated. - Neck: Normal range of motion on exam maneuvers. Assessment & Plan Hepatitis C, status post completion of oral antiviral therapy last month: Completed a 3-month pill regimen; no post-treatment labs yet obtained to assess response. - Order blood work to assess post-treatment status. - Plan follow-up in 8 weeks to review results; will add additional timed labs as needed based on treatment timeline. History of hyperammonemia, on lactulose: Patient discharged on lactulose and continues therapy; clinically improved and feels clearer. She was counseled that her prior constipation meds bisacodyl and Colace likely should be held if she develops diarrhea so that we can aggressively continue the lactulose therapy. If something happens and we can not manage it we could consider moving her to Xifaxan. - Continue lactulose as prescribed; refill provided today. - Qa Lead: if significant diarrhea occurs, contact me; avoid concurrent constipation medications while having diarrhea. Possible fluid retention: Mild concern for water retention on clinical impression. - Order abdominal ultrasound to reassess liver and evaluate for fluid changes. So far, she is not decompensated and hopefully if the hepatitis-C can be stalled she can be maintained at her current level of function. Weight management counseling: Patient motivated to lose weight; working on dietary changes. - Encourage smaller portion sizes and avoidance of high-calorie, low-nutrient foods. Follow-up: Return in 8 weeks, sooner as needed for any new or worsening symptoms. Orders: Orders Hepatitis C Viral Load Today B18.2 - Chronic viral hepatitis C, K76.82 - Hepatic encephalopathy Ammonia Today B18.2 - Chronic viral hepatitis C, K76.82 - Hepatic encephalopathy US abdomen complete Today B18.2 - Chronic viral hepatitis C, K76.82 - Hepatic encephalopathy Liver Fibrosis Pnl Today B18.2 - Chronic viral hepatitis C, K76.82 - Hepatic encephalopathy Medications: Refilled dexlansoprazole (Dexilant) 60 mg PO DAILY 90 caps 3RF 90 days lactulose 20 grams (30 mL) PO DAILY 600 mL 6RF K76.82 - Hepatic encephalopathy Coding Level of Care Code Est Pt Level 4 (66063) Diagnoses Chronic hepatitis C B18.2 Hepatic encephalopathy K76.82 Time Spent (min) 37
[2025-04-17 11:23] VITALS: BP 133/71; PULSE 65
--- OUTSIDE RECORDS SUMMARY | 2025-04-17 11:58 | XMS_ITS | Clinical Summary ---
Author Organization [address] [facility] Address [address] [place] [address] Phone Care Team Providers Care Wardrobe Manager Name Role Phone Magali Reynoso MD Primary Care Provider [phone] Allergies Active Allergy Reactions Criticality Noted Date [...] Chronic back pain 01/22/2024 Chronic hepatitis C ([facility] V24, [facility] V28) 0 01/22/2024 GERD (gastroesophageal reflux disease) Immunodeficiency disorder ([facility] V24) 01/22/20 24 Rhinosinusitis 01/22/2024 Subacute [...] Maintenance Insurance MEDICAID - [place] Care Teams Wardrobe Manager Relationship Specialty Start Date End Date Magali Reynoso MD [address] [place] [phone] PCP - General 12/26/23
--- OUTSIDE RECORDS SUMMARY | 2025-04-17 11:58 | XMS_ITS | Clinical Summary ---
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 Not on gissel e 02/02/2025 Are you concerned about learning? Not on file 02/02/2025 No 02/02/2025 No 02/02/2025 Digital Access Answer Date Recorded No 02/02/2025 No 02/02/2025 Reliable internet access at home? Not on file 02/02/2025 Device with a working camera? Not on file Comments Unknown Sex and Gender Information Value Date Recorded Sex Assigned at Not on file Legal Sex Female 3:12 PM EDT Gender Identity Not on file Sexual Orientation Not on file Plan of Treatment Upcoming Encounters Date Type Department Care Team ([facility] st Contact Info) Description 05/18/2025 2:40 PM EST Office Visit [address] [address] Edgar Chambers MD [address] [place] [id number] [email or web address] Health Maintenance Due Date Last Done Comments Adult Td,Tdap Booster 1963 LIPID PANEL 1963 DEPRESSION SCREENING 1975 SMOKING Hx and SMOKELESS TOB ACCO SCREENING 01/10/1976 HEPATITIS C SCREENING 1981 HIV ONE-TIME SCREENING (18-6 5 YEARS) 1981 PAP SMEAR 01/10/1984 MAMMOGRAM 2003 COLOGUARD 01/10/2008 COLONOSCOPY 01/10/2008 COLORECTAL CANCER SCREENING 01/10/2008 FIT TEST 01/10/2008 FOBT 01/10/2008 SIGMOIDOSCOPY 01/10/2008 VIRTUAL COLONOSCOPY 01/10/2008 PNEUMOCOCCAL VACCINES (50+ y ears) (1 of 1 - PCV) 2013 ZOSTER VACCINES (1 of 2) 2013 INFLUENZA VACCINE (#1) 2024 COVID-19 VACCINE (1 - 2024-2 6 season) 2025 RSV VACCINE (1 - 1-dose 75+ series) 2038 HEPATITIS A VACCINES Aged Out No long er eligible based on patient's age to complete this topic HIB VACCINES Aged Out No longer eligi ble based on patient's age to complete this topic IPV VACCINES Aged Out No longer eligi ble based on patient's age to complete this topic MENINGOCOCCAL VACCINES (ACWY) Aged Out No longer eligible based on patient's age to complete this topic MENINGOCOCCAL VACCINES (B) Aged Out N o longer eligible based on patient's age to complete this topic Medical Devices Not on file Procedures Procedure Name Priority Date/Time Associated Diagnosis Comments B-SCAN ULTRASOUND - OD - RIGHT EYE Routine 03/18/2025 3:23 PM EDT Macular hole of left eye OCT, RETINA - OU - BOTH EYES Routine 03/18/2025 1:39 PM EDT Proliferative diabetic retinopathy of both eyes without macular edema associated with type 2 diabetes mellitus COLOR FUNDUS PHOTOGRAPHY - OU - BOTH EYES Routine 03/18/2025 1:39 PM EDT Proliferative diabetic retinopathy of both eyes without macular edema associated with type 2 diabetes mellitus from Last 3 Months Results * B-Scan Ultrasound - OD - Right Eye (03/18/2025 3:23 PM EDT) Anatomical Region Laterality Modality Head ECHOGRAPHY Narrative 03/18/2025 3:53 PM EDT Testing performed by: Pedro Courtney, CRISTAL, KEDAR, ART. Notes Globe has irregular contour secondary to phthisis bulbi. Vitreous cavity has an echodense opacity consistent with chronic closed funnel retinal detachment. No evidence of intraocular mass. Ocular coats are calcified. Orbital fat has atrophic changes. Edgar Chambers MD OPHTHALMOLOGY IMAGING Final Res ult * OCT, RETINA - OU - BOTH EYES - [place] (03/18/2025 1:39 PM EDT) Narrative HARMONY - 03/18/2025 3:53 PM EDT OD: no view OS: pre-retinal hyper-reflective material nasally, ERM, macula hole, diffuse CME Edgar Chambers MD OPHTHALMOLOGY IMAGING Final Res ult HARMONY * Color Fundus Photography - OU - Both Eyes (03/18/2025 1:39 PM EDT) Anatomical Region Laterality Modality Head Photography Narrative 03/18/2025 3:53 PM EDT OD: hazy view, disorganized retina OS: massive pre-retinal fibrosis with NV, macular hole us Edgar Chambers MD OPHTHALMOLOGY IMAGING Final Res ult from Last 3 Months Insurance [facility] C3 ACO [facility] C3 ACO [facility] C3 ACO Care Teams Global Security Architect Relationship Specialty Start Date End Date Magali Reynoso MD [address] [place] [phone] PCP - General Family Medicine 02/25/25 Additional Source Comments The information contained in this document represents components of the legal health record. It is not the complete legal health record.[facility]
--- OUTSIDE RECORDS SUMMARY | 2025-04-17 11:58 | XMS_ITS | Patient Health Record ---
Author Organization [facility] Address [address] [place] [address] Care Team Providers Care Systems Trainer Name Role Phone HARLEYBIANKAANABELA Primary Care Provider Chris Carlson [phone] Reason For Referral No Information Plan Of Treatment No Information Insurance Providers Payer Name Payer Address Payer Phone Subscriber Number Group Number Insured Name Patient Relationship to Insured Coverage Start Date Coverage End Date MEDICAID OF [facility] [address] [place] [address] [id number] IMRA CHAVEZ Self - patient is the insured
== END 2025-04-17 12:03 | disposition home or self-care (01) ==
LOC: HO.HGI 11:06
PROVIDERS: PCP Student in an Organized Health Care Education/Training Program; Visit Provider Nurse Practitioner
DX: B18.2 Chronic viral hepatitis C (principal); K76.82 Hepatic encephalopathy
CPT/HCPCS: 99214

== ENCOUNTER → 2025-04-17 11:05 | Outpatient (BNVA) | payer MEDICAID, SELFPAY | PROVIDERS: PCP Student in an Organized Health Care Education/Training Program; Visit Provider Nurse Practitioner | DX: Z09 Encounter for follow-up examination after completed treatment for conditions other than malignant neoplasm (principal); B18.2 Chronic viral hepatitis C; K76.82 Hepatic encephalopathy | CPT/HCPCS: 99212 ==

== ENCOUNTER 2025-05-14 09:47 | Outpatient (REF) | payer MEDICAID, SELFPAY ==
--- OUTSIDE RECORDS SUMMARY | 2025-05-14 11:43 | XMS_ITS | Patient Health Record ---
Author Organization [facility] Address [address] [place] [address] Care Team Providers Care Principal Biostatistician Name Role Phone ANABELA SOUZA Primary Care Provider Chris Carlson [phone] Reason For Referral No Information Problems Problem Type SNOMED Code ICD Code Onset Dates Problem Status W/U Status Risk Notes Problem Cirrhotic (010682004) Cirrhosis (K74.60) Active confirmed Problem Hepatic encephalopathy (31864695) Hepatic encephalopathy (K72.90) Active confirmed Plan Of Treatment No Information Insurance Providers Payer Name Payer Address Payer Phone Subscriber Number Group Number Insured Name Patient Relationship to Insured Coverage Start Date Coverage End Date [facility] [address] [place] [address] [phone] [id number] MIRA CHAVEZ Self - patient is the insured
--- OUTSIDE RECORDS SUMMARY | 2025-05-14 11:43 | XMS_ITS | Clinical Summary ---
Author Organization [facility] Address [address] [place] [address] Phone Care Team Providers Care Raschel Knitting Machine Operator Name Role Phone Magali Reynoso MD Primary Care Provider [phone] Allergies Active Allergy Reactions Criticality Noted Date [...] (HGBA1C) 04/09/2024 Depression Screening 05/28/2024 COVID-19 Vaccine ( - season) 2025 06/20/2021, 05/19/2021 Influenza Vaccine [...] Maintenance Insurance [place] - [place] Care Teams Raschel Knitting Machine Operator Relationship Specialty Start Date End Date Magali Reynoso MD [address] [place] [id number] PCP - General 12/26/23
--- OUTSIDE RECORDS SUMMARY | 2025-05-14 11:43 | XMS_ITS | Clinical Summary ---
Author Organization [facility] Address [address] [address] Phone Care Team Providers Care Pastry Wrapper Name Role Phone Magali Reynoso MD Primary Care Provider [phone] Encounters Date Type Department Care Team Description 03/18/2025 1:10 PM EDT Office Visit [facility] [address] [place] [phone] Edgar Chambers MD Chorioretinal scar of left [...] Upcoming Encounters Date Type Department Care Team ([facility] st Contact Info) Description 05/18/2025 2:40 PM EST Office Visit [facility] [address] [place] [phone] Edgar Chambers MD [address] [place] [phone] [email or web address] Health Maintenance Due Date Last Done Comments [...] RETINA - OU - BOTH EYES - [place] (03/18/2025 1:39 PM EDT) Narrative [facility] - 03/18/2025 3:53 PM EDT OD: no view OS: pre-retinal hyper-reflective material nasally, ERM, macula hole, diffuse CME Edgar Chambers MD OPHTHALMOLOGY IMAGING Final Res ult [facility]MON[facility] * Color Fundus Photography - OU - Both Eyes (03/18/2025 1:39 PM EDT) Anatomical Region Laterality Modality Head Photography Narrative 03/18/2025 3:53 PM EDT OD: hazy view, disorganized retina OS: massive pre-retinal fibrosis with NV, macular hole Result [facility] Edgar Chambers MD OPHTHALMOLOGY IMAGING Final Res ult from Last 3 Months Insurance [facility] [address] [place] [address] [place] [address] [place] [address] [place] [address] [employer] [facility] [employer] A[employer] Care Teams Pastry Wrapper Relationship Specialty Start Date End Date Magali Reynoso MD [address] [place] [phone] PCP - General Family Medicine 02/25/25 Additional Source Comments The information contained in this document represents components of the legal health record. It is not the complete legal health record.[facility]
[2025-05-14 16:11] LABS: Alanine Aminotransferase 12 U/L (0-31); Albumin Level 2.9 g/dL (3.5-5.0); Alkaline Phosphatase 163 U/L (39-117); Aspartate Amino Transferase 34 U/L (5-31); Cholesterol 143 mg/dL (<200); HDL Cholesterol 46 mg/dL (>40); Total Protein 6.6 g/dL (6.5-8.0); Triglycerides 134 mg/dL (<150)
[2025-05-16 00:13] LABS: HIV RNA PCR Qn Copies 57 copies/mL (NOT DETECTED); HIV RNA PCR Qn Log Copies 1.76 (NOT DETECTED)
== END 2025-05-14 09:48 | disposition home or self-care (01) ==
LOC: HO.CHCLDS 09:47
PROVIDERS: Visit Provider Family Medicine
DX: E78.5 Hyperlipidemia, unspecified (principal); Z21 Asymptomatic human immunodeficiency virus [HIV] infection status; E06.1 Subacute thyroiditis; E55.9 Vitamin D deficiency, unspecified; Z11.4 Encounter for screening for human immunodeficiency virus [HIV]; Z11.59 Encounter for screening for other viral diseases
CPT/HCPCS: 36415; 80061; 80076; 82306; 84443; 87522; 87536